=== PATIENT | female | born 1965 | race Caucasian/White ===

== ENCOUNTER 2018-07-21 10:40 | Day surgery (SDC) | payer MEDICARE, MEDICAID ==
[~2018-07-21 10:40] MED LIST: AMOX-580 PO; BUPR150T8 PO; CARB-90 PO; CARB1TAB23 PO; CLOZ100T18 PO; DIPH25CA83 PO; DIT5T PO; GABA-532 PO; LACT1CAP26 PO; LEVO112T5 PO; NICO-687 TD; NORCO10T PO; SERT50TA PO; ZOC40T PO
--- NOTE | 2018-07-21 13:08 | NUR ---
Patient ambulated independently from [facility] and was admitted to outpatient wound care for physician visit with Martin Duncan MD. Dressing removed, wound cleansed and lidocaine applied per order. Patient assessed for changes in conditions, medications and medical history. 1145 - Dr. Duncan at bedside accompanied by RN. Wound assessed, time out performed by MD/RN. Wound debrided as detailed in the physician progress/procedure note. Plan of care discussed with patient. Dressings placed per MD orders. Pt instructed that they should not be disconnected from suction for more than 2 hours at a time. If they are not able to get the suction back on they need to remove the dressing and take all of the foam out of the wound, place hydrogel gauze on/in the wound, and change the dressing daily until someone can replace the dressing. Pt instructed to call the Wound Center or their Home Health Agency immediately if they notice a change in the color or amount of the fluid in the canister, their wound looks more red than usual or has a foul smell, the skin around their wound looks reddened or irritated, the dressing feels or appears loose, they experience pain or the alarm will not turn off. Pt instructed to call 911 or go to the ED if their canister fills rapidly with blood. Patient instructed on the signs and symptoms of infection and to call the Wound Center if any occur or to go to the ED if we are closed: Increased pain in wound Increase in drainage from the wound Redness in the skin surrounding the wound Bleeding from the wound Temperature of 101 or greater Patient instructed that the weight of their body puts a large amount of pressure on their wounds. This pressure keeps the new tissue from growing and inhibits new blood vessels from forming. Explained that, if they continue to bear weight on a body part that has a wound, the time it takes to heal the wound increases, the wound may get worse or the wound may not heal at all. Patient verbalized understanding of all discharge instructions and plan of care and ambulated independently out to [facility] in stable condition with no sign or symptom of distress at time of discharge. Patient is scheduled to return to clinic Tuesday for dressing change. Nia gaines [facility] notified of orders and she states they have not yet opened patient to service due to limitations on staffing in that area.
== END 2018-07-21 12:57 | disposition home or self-care (01) ==
LOC: WOUND CARE 10:40
PROVIDERS: ATTEND Surgery
DX: T81.89XD Other complications of procedures, not elsewhere classified, subsequent encounter (principal); E03.9 Hypothyroidism, unspecified; E66.01 Morbid (severe) obesity due to excess calories; F17.210 Nicotine dependence, cigarettes, uncomplicated; F10.10 Alcohol abuse, uncomplicated; F25.0 Schizoaffective disorder, bipolar type; F41.9 Anxiety disorder, unspecified; Z79.899 Other long term (current) drug therapy; Z90.710 Acquired absence of both cervix and uterus; Y83.8 Other surgical procedures as the cause of abnormal reaction of the patient, or of later complication, without mention of misadventure at the time of the procedure
CPT/HCPCS: 97597; 97598; A4456

== ENCOUNTER 2018-07-24 11:57 | Emergency (ER) | payer MEDICARE, MEDICAID ==
[~2018-07-24] VITALS: Ht 165.1 cm; Wt 77.7 kg
[2018-07-24 12:00] VITALS: BP 123/70
--- NOTE | 2018-07-24 12:53 | NUR ---
AMBULATORY TO ER #[id number] WITH C/O DRAINING WOUND FROM HERNIA REAPIR, NOT BEING CONTAINED BY WOUND VAC. STATES SHE HAS HX WOUND INFECTIONS IN THE PAST. WOUND VAC NOTED AND FUNCTIONING WELL. STATES DRAINAGE IS COMING FROM THE LEFT SIDE OF THE WOUND.
--- NOTE | 2018-07-24 13:09 | NUR ---
WOUND AREA REINFORCED WITH TEGADERM DRESSING. VAC FUNCTIONING WELL WITHOUT SIGNS OF FLUID LEAKING AT PRESENT.
== END 2018-07-24 13:12 | disposition home or self-care (01) ==
LOC: ER 11:58
DX: T81.41XA Infection following a procedure, superficial incisional surgical site, initial encounter (principal); E03.9 Hypothyroidism, unspecified; G89.29 Other chronic pain; Z88.2 Allergy status to sulfonamides; Z79.899 Other long term (current) drug therapy; Y83.9 Surgical procedure, unspecified as the cause of abnormal reaction of the patient, or of later complication, without mention of misadventure at the time of the procedure; Y92.89 Other specified places as the place of occurrence of the external cause
CPT/HCPCS: 99282

== ENCOUNTER 2018-07-25 10:45 | Outpatient (CLI) | payer MEDICARE, MEDICAID ==
--- NOTE | 2018-07-25 13:28 | NUR ---
Patient ambulated independently from [facility] and was admitted to outpatient wound care for physician visit with Martin Duncan MD. Dressing removed, wound cleansed and lidocaine applied per order. Patient assessed for changes in conditions, medications and medical history. 1200 - Dr. Duncan at bedside accompanied by RN. Wound assessed by MD, new orders written. Plan of care discussed with patient. Dressings placed per MD orders. Pt instructed that they should not be disconnected from suction for more than 2 hours at a time. If they are not able to get the suction back on they need to remove the dressing and take all of the foam out of the wound, place hydrogel gauze on/in the wound, and change the dressing daily until someone can replace the dressing. Pt instructed to call the Wound Center or their Home Health Agency immediately if they notice a change in the color or amount of the fluid in the canister, their wound looks more red than usual or has a foul smell, the skin around their wound looks reddened or irritated, the dressing feels or appears loose, they experience pain or the alarm will not turn off. Pt instructed to call 911 or go to the ED if their canister fills rapidly with blood. Patient instructed on the signs and symptoms of infection and to call the Wound Center if any occur or to go to the ED if we are closed: Increased pain in wound Increase in drainage from the wound Redness in the skin surrounding the wound Bleeding from the wound Temperature of 101 or greater Patient instructed that the weight of their body puts a large amount of pressure on their wounds. This pressure keeps the new tissue from growing and inhibits new blood vessels from forming. Explained that, if they continue to bear weight on a body part that has a wound, the time it takes to heal the wound increases, the wound may get worse or the wound may not heal at all. Patient verbalized understanding of all discharge instructions and plan of care and ambulated independently out to [facility] in stable condition with no sign or symptom of distress at time of discharge.
== END 2018-07-25 13:22 | disposition home or self-care (01) ==
LOC: WOUND CARE 10:45 → EDSTATUS 11:00 → WOUND CARE 13:22
PROVIDERS: ATTEND Surgery
DX: T81.40XD Infection following a procedure, unspecified, subsequent encounter (principal); L98.492 Non-pressure chronic ulcer of skin of other sites with fat layer exposed; E03.9 Hypothyroidism, unspecified; E66.01 Morbid (severe) obesity due to excess calories; F17.210 Nicotine dependence, cigarettes, uncomplicated; F10.10 Alcohol abuse, uncomplicated; F25.0 Schizoaffective disorder, bipolar type; F41.9 Anxiety disorder, unspecified; Z79.899 Other long term (current) drug therapy; Z90.710 Acquired absence of both cervix and uterus; Y83.8 Other surgical procedures as the cause of abnormal reaction of the patient, or of later complication, without mention of misadventure at the time of the procedure
CPT/HCPCS: 97606; A6223; A4456

== ENCOUNTER 2018-07-28 10:03 | Outpatient (CLI) | payer MEDICARE, MEDICAID ==
--- NOTE | 2018-07-28 14:33 | NUR ---
Patient ambulated independently from [facility] and was admitted to outpatient wound care clinic for nursing visit, under direct supervision of . Dressings and wound vac removed, wound cleansed and patient assessed for changes in conditions, medications and medical history. Dressings and wound vac reapplied per physician orders. Patient instructed on the signs and symptoms of infection and to call the Wound Center if any occur or to go to the ED if we are closed: Increased pain in wound Increase in drainage from the wound Redness in the skin surrounding the wound Bleeding from the wound Temperature of 101 or greater Pt instructed that they should not be disconnected from suction for more than 2 hours at a time. If they are not able to get the suction back on they need to remove the dressing and take all of the foam out of the wound, place hydrogel gauze on/in the wound, and change the dressing daily until someone can replace the dressing. Pt instructed to call the Wound Center or their Home Health Agency immediately if they notice a change in the color or amount of the fluid in the canister, their wound looks more red than usual or has a foul smell, the skin around their wound looks reddened or irritated, the dressing feels or appears loose, they experience pain or the alarm will not turn off. Pt instructed to call 911 or go to the ED if their canister fills rapidly with blood. Patient instructed that the weight of their body puts a large amount of pressure on their wounds. This pressure keeps the new tissue from growing and inhibits new blood vessels from forming. Explained that, if they continue to bear weight on a body part that has a wound, the time it takes to heal the wound increases, the wound may get worse or the wound may not heal at all. Patient verbalized understanding of all discharge instructions and plan of care. Patient ambulated independently out to [facility] in stable condition with no sign or symptom of distress at time of discharge. Addendum: 07/28/18 at 1442 by Gisella Gersbach RN Amended: Links added.
== END 2018-07-28 12:24 | disposition home or self-care (01) ==
LOC: WOUND CARE 10:03
PROVIDERS: ATTEND Surgery
DX: T81.40XD Infection following a procedure, unspecified, subsequent encounter (principal); L98.492 Non-pressure chronic ulcer of skin of other sites with fat layer exposed; E03.9 Hypothyroidism, unspecified; E66.01 Morbid (severe) obesity due to excess calories; F17.210 Nicotine dependence, cigarettes, uncomplicated; F10.10 Alcohol abuse, uncomplicated; F25.0 Schizoaffective disorder, bipolar type; F41.9 Anxiety disorder, unspecified; Z79.899 Other long term (current) drug therapy; Z90.710 Acquired absence of both cervix and uterus; Y83.8 Other surgical procedures as the cause of abnormal reaction of the patient, or of later complication, without mention of misadventure at the time of the procedure
CPT/HCPCS: 97606

== ENCOUNTER 2018-08-01 10:30 | Day surgery (SDC) | payer MEDICARE, MEDICAID ==
--- NOTE | 2018-08-01 13:30 | NUR ---
Patient ambulated independently from [facility] and was admitted to outpatient wound care for physician visit with Martin Duncan MD. Dressing removed, wound cleansed and lidocaine applied per order. Patient assessed for changes in conditions, medications and medical history. 1235 - Dr. Duncan at bedside accompanied by RN. Wound assessed, time out performed by MD/RN. Wound debrided as detailed in the physician progress/procedure note. Plan of care discussed with patient. Dressings placed per MD orders. Pt instructed that they should not be disconnected from suction for more than 2 hours at a time. If they are not able to get the suction back on they need to remove the dressing and take all of the foam out of the wound, place hydrogel gauze on/in the wound, and change the dressing daily until someone can replace the dressing. Pt instructed to call the Wound Center or their Home Health Agency immediately if they notice a change in the color or amount of the fluid in the canister, their wound looks more red than usual or has a foul smell, the skin around their wound looks reddened or irritated, the dressing feels or appears loose, they experience pain or the alarm will not turn off. Pt instructed to call 911 or go to the ED if their canister fills rapidly with blood. Patient instructed on the signs and symptoms of infection and to call the Wound Center if any occur or to go to the ED if we are closed: Increased pain in wound Increase in drainage from the wound Redness in the skin surrounding the wound Bleeding from the wound Temperature of 101 or greater Patient instructed that the weight of their body puts a large amount of pressure on their wounds. This pressure keeps the new tissue from growing and inhibits new blood vessels from forming. Explained that, if they continue to bear weight on a body part that has a wound, the time it takes to heal the wound increases, the wound may get worse or the wound may not heal at all. Patient verbalized understanding of all discharge instructions and plan of care and ambulated independently out to [facility] in stable condition with no sign or symptom of distress at time of discharge.
== END 2018-08-01 13:30 | disposition home or self-care (01) ==
LOC: WOUND CARE 10:30
PROVIDERS: ATTEND Surgery
DX: T81.89XD Other complications of procedures, not elsewhere classified, subsequent encounter (principal); L98.492 Non-pressure chronic ulcer of skin of other sites with fat layer exposed; E03.9 Hypothyroidism, unspecified; E66.01 Morbid (severe) obesity due to excess calories; F17.210 Nicotine dependence, cigarettes, uncomplicated; F10.10 Alcohol abuse, uncomplicated; F25.0 Schizoaffective disorder, bipolar type; F41.9 Anxiety disorder, unspecified; Z79.899 Other long term (current) drug therapy; Z90.710 Acquired absence of both cervix and uterus; Y83.8 Other surgical procedures as the cause of abnormal reaction of the patient, or of later complication, without mention of misadventure at the time of the procedure
CPT/HCPCS: 97597; A4456

== ENCOUNTER 2018-08-08 10:00 | Day surgery (SDC) | payer MEDICARE, MEDICAID ==
--- NOTE | 2018-08-08 12:00 | NUR ---
Patient ambulated independently from [facility] and was admitted to outpatient wound care for physician visit with Martin Duncan MD. Dressing removed, wound cleansed. Patient assessed for changes in conditions, medications and medical history. 1045 - Dr. Duncan at bedside accompanied by RN. Wound assessed, time out performed by MD/RN. Wound debrided as detailed in the physician progress/procedure note. Plan of care discussed with patient. Dressings placed per MD orders. Pt instructed that they should not be disconnected from suction for more than 2 hours at a time. If they are not able to get the suction back on they need to remove the dressing and take all of the foam out of the wound, place hydrogel gauze on/in the wound, and change the dressing daily until someone can replace the dressing. Pt instructed to call the Wound Center or their Home Health Agency immediately if they notice a change in the color or amount of the fluid in the canister, their wound looks more red than usual or has a foul smell, the skin around their wound looks reddened or irritated, the dressing feels or appears loose, they experience pain or the alarm will not turn off. Pt instructed to call 911 or go to the ED if their canister fills rapidly with blood. Patient instructed on the signs and symptoms of infection and to call the Wound Center if any occur or to go to the ED if we are closed: Increased pain in wound Increase in drainage from the wound Redness in the skin surrounding the wound Bleeding from the wound Temperature of 101 or greater Patient instructed that the weight of their body puts a large amount of pressure on their wounds. This pressure keeps the new tissue from growing and inhibits new blood vessels from forming. Explained that, if they continue to bear weight on a body part that has a wound, the time it takes to heal the wound increases, the wound may get worse or the wound may not heal at all. Patient verbalized understanding of all discharge instructions and plan of care and ambulated independently out to [facility] in stable condition with no sign or symptom of distress at time of discharge.
== END 2018-08-08 12:00 | disposition home or self-care (01) ==
LOC: WOUND CARE 10:00
PROVIDERS: ATTEND Surgery
DX: T81.89XD Other complications of procedures, not elsewhere classified, subsequent encounter (principal); L98.492 Non-pressure chronic ulcer of skin of other sites with fat layer exposed; E03.9 Hypothyroidism, unspecified; E66.01 Morbid (severe) obesity due to excess calories; F17.210 Nicotine dependence, cigarettes, uncomplicated; F10.10 Alcohol abuse, uncomplicated; F25.0 Schizoaffective disorder, bipolar type; F41.9 Anxiety disorder, unspecified; Z79.899 Other long term (current) drug therapy; Z90.710 Acquired absence of both cervix and uterus; Y83.8 Other surgical procedures as the cause of abnormal reaction of the patient, or of later complication, without mention of misadventure at the time of the procedure
CPT/HCPCS: 97597; 97598; A6223; A4456

== ENCOUNTER 2018-08-31 10:56 | Outpatient (CLI) | payer MEDICARE, MEDICAID ==
[~2018-08-31 10:56] MED LIST changes: -AMOX-580 PO
--- NOTE | 2018-08-31 12:30 | NUR ---
Patient ambulated independently from [facility] and was admitted to outpatient wound care for nursing visit under the direct supervision of Martin Duncan MD. Dressing removed, wound cleansed. Patient assessed for changes in conditions, medications and medical history. Dressings placed per MD orders. Pt instructed that they should not be disconnected from suction for more than 2 hours at a time. If they are not able to get the suction back on they need to remove the dressing and take all of the foam out of the wound, place hydrogel gauze on/in the wound, and change the dressing daily until someone can replace the dressing. Pt instructed to call the Wound Center or their Home Health Agency immediately if they notice a change in the color or amount of the fluid in the canister, their wound looks more red than usual or has a foul smell, the skin around their wound looks reddened or irritated, the dressing feels or appears loose, they experience pain or the alarm will not turn off. Pt instructed to call 911 or go to the ED if their canister fills rapidly with blood. Patient instructed on the signs and symptoms of infection and to call the Wound Center if any occur or to go to the ED if we are closed: Increased pain in wound Increase in drainage from the wound Redness in the skin surrounding the wound Bleeding from the wound Temperature of 101 or greater Patient instructed that the weight of their body puts a large amount of pressure on their wounds. This pressure keeps the new tissue from growing and inhibits new blood vessels from forming. Explained that, if they continue to bear weight on a body part that has a wound, the time it takes to heal the wound increases, the wound may get worse or the wound may not heal at all. Patient verbalized understanding of all discharge instructions and plan of care and ambulated independently out to [facility] in stable condition with no sign or symptom of distress at time of discharge.
== END 2018-08-31 12:03 | disposition home or self-care (01) ==
LOC: WOUND CARE 10:56 → EDSTATUS 11:00 → WOUND CARE 12:03
PROVIDERS: ATTEND Surgery
DX: T81.89XD Other complications of procedures, not elsewhere classified, subsequent encounter (principal); L98.492 Non-pressure chronic ulcer of skin of other sites with fat layer exposed; E03.9 Hypothyroidism, unspecified; E66.01 Morbid (severe) obesity due to excess calories; F17.210 Nicotine dependence, cigarettes, uncomplicated; F10.10 Alcohol abuse, uncomplicated; F25.0 Schizoaffective disorder, bipolar type; F41.9 Anxiety disorder, unspecified; Z79.899 Other long term (current) drug therapy; Z90.710 Acquired absence of both cervix and uterus; Y83.8 Other surgical procedures as the cause of abnormal reaction of the patient, or of later complication, without mention of misadventure at the time of the procedure
CPT/HCPCS: 97605; A4456; A4663; A6021; A6154; A6213

== ENCOUNTER 2018-09-04 10:20 | Outpatient (CLI) | payer MEDICARE, MEDICAID ==
--- NOTE | 2018-09-04 12:22 | NUR ---
Patient ambulated independently from [facility] and was admitted to outpatient wound care for physician visit with Martin Duncan MD. Dressings and wound vac removed, wound cleansed and lidocaine applied per order. Patient assessed for changes in conditions, medications and medical history. Dr. Duncan at bedside accompanied by RN. Wound assessed and no debridement was done. Plan of care discussed with patient. Dressings and wound vac placed per MD orders. Patient instructed on the signs and symptoms of infection and to call the Wound Center if any occur or to go to the ED if we are closed: Increased pain in wound Increase in drainage from the wound Redness in the skin surrounding the wound Bleeding from the wound Temperature of 101 or greater Pt instructed that they should not be disconnected from suction for more than 2 hours at a time. If they are not able to get the suction back on they need to remove the dressing and take all of the foam out of the wound, place hydrogel gauze on/in the wound, and change the dressing daily until someone can replace the dressing. Pt instructed to call the Wound Center or their Home Health Agency immediately if they notice a change in the color or amount of the fluid in the canister, their wound looks more red than usual or has a foul smell, the skin around their wound looks reddened or irritated, the dressing feels or appears loose, they experience pain or the alarm will not turn off. Pt instructed to call 911 or go to the ED if their canister fills rapidly with blood. Patient instructed that the weight of their body puts a large amount of pressure on their wounds. This pressure keeps the new tissue from growing and inhibits new blood vessels from forming. Explained that, if they continue to bear weight on a body part that has a wound, the time it takes to heal the wound increases, the wound may get worse or the wound may not heal at all. Patient verbalized understanding of all discharge instructions and plan of care and ambulated independently out to [facility] in stable condition with no sign or symptom of distress at time of discharge. Addendum: 09/04/18 at 1230 by Gisella Foster RN Amended: Links added.
== END 2018-09-04 11:56 | disposition home or self-care (01) ==
LOC: WOUND CARE 10:20 → EDSTATUS 10:30 → WOUND CARE 11:56
PROVIDERS: ATTEND Surgery
DX: T81.89XD Other complications of procedures, not elsewhere classified, subsequent encounter (principal); L98.492 Non-pressure chronic ulcer of skin of other sites with fat layer exposed; E03.9 Hypothyroidism, unspecified; E66.01 Morbid (severe) obesity due to excess calories; G89.29 Other chronic pain; J42 Unspecified chronic bronchitis; E78.5 Hyperlipidemia, unspecified; F17.210 Nicotine dependence, cigarettes, uncomplicated; F10.10 Alcohol abuse, uncomplicated; F25.0 Schizoaffective disorder, bipolar type; F41.9 Anxiety disorder, unspecified; Z79.899 Other long term (current) drug therapy; Z90.710 Acquired absence of both cervix and uterus; Y83.8 Other surgical procedures as the cause of abnormal reaction of the patient, or of later complication, without mention of misadventure at the time of the procedure
CPT/HCPCS: 97605; A4456; A4663; A6021; A6154; A6212

== ENCOUNTER 2018-09-07 10:15 | Day surgery (SDC) | payer MEDICARE, MEDICAID ==
--- NOTE | 2018-09-07 17:26 | NUR ---
1000 Patient ambulated safely into [facility]. Patient admitted to outpatient wound care clinic for follow-up visit with physician. Dressing removed, wound cleansed. Patient assessed for changes in conditions, medications and medical history. Patient showed no s/s of distress at time of assessment. 8515 at bedside accompanied by RN. Wounds assessed, time out performed and debridement done today as detailed in the physician progress/procedure note. Plan of care discussed with patient. Dressings placed per MD orders. WOUND VAC WAS D/C'D Patient instructed on the signs and symptoms of infection and to call the Wound Center if any occur or to go to the ED if we are closed: Increased pain in wound Increase in drainage from the wound Redness in the skin surrounding the wound Bleeding from the wound Temperature of 101 or greater Patient instructed that the weight of their body puts a large amount of pressure on their wounds. This pressure keeps the new tissue from growing and inhibits new blood vessels from forming. Explained that, if they continue to bear weight on a body part that has a wound, the time it takes to heal the wound increases, the wound may get worse or the wound may not heal at all. Patient verbalized understanding of all discharge instructions and plan of care. Patient ambulated independently out to [facility] and is in stable condition with no sign or symptom of distress at time of discharge.
== END 2018-09-07 12:59 | disposition home or self-care (01) ==
LOC: WOUND CARE 10:15
PROVIDERS: ATTEND Surgery
DX: T81.89XD Other complications of procedures, not elsewhere classified, subsequent encounter (principal); L98.492 Non-pressure chronic ulcer of skin of other sites with fat layer exposed; E03.9 Hypothyroidism, unspecified; E66.01 Morbid (severe) obesity due to excess calories; F17.210 Nicotine dependence, cigarettes, uncomplicated; F10.10 Alcohol abuse, uncomplicated; F25.0 Schizoaffective disorder, bipolar type; F41.9 Anxiety disorder, unspecified; Z79.899 Other long term (current) drug therapy; Z90.710 Acquired absence of both cervix and uterus; Y83.8 Other surgical procedures as the cause of abnormal reaction of the patient, or of later complication, without mention of misadventure at the time of the procedure
CPT/HCPCS: 97597; A4663; A6021; A6212; A6213

== ENCOUNTER 2018-09-10 16:02 | Emergency (ER) | payer MEDICARE, MEDICAID ==
[~2018-09-10] VITALS: Ht 165.1 cm; Wt 74.0 kg
--- NOTE | 2018-09-10 16:57 | NUR ---
STATES INTESTINAL INFECTION AT THE END OF JUNE AND ABDOMEN WAS "CLEANED OUT" HAD WOUND VAC REMOVED A WEEK AGO, X 1 MONTH SINCE ON ATB THREAPY AND HAS HAD FEVER UP TO 101.1 YESTERDAY
[2018-09-10 18:05] LABS: BASOPHILS % (AUTO) 0.3 % (0-1); EOSINOPHILS # (AUTO) 0.3 X10'3 (0-0.9); EOSINOPHILS % (AUTO) 2.8 % (0-6); HEMATOCRIT 36.4 % (35.0-45.0); HEMOGLOBIN 12.5 g/dl (12.0-16.0); LYMPHOCYTES # (AUTO) 1.7 X10'3 (1.1-4.8); MEAN CORPUSCULAR HEMOGLOBIN 30.4 PG (27.0-31.0); MEAN CORPUSCULAR HGB CONC 34.3 g/dL (33.0-36.5); MEAN CORPUSCULAR VOLUME 88.6 FL (78-98); MEAN PLATELET VOLUME 8.6 FL (7.4-10.4); MONOCYTES # (AUTO) 0.7 X10'3 (0-0.9); MONOCYTES % (AUTO) 6.5 % (2-12); NEUTROPHILS # (AUTO) 7.8 X10'3 (1.8-7.7); NEUTROPHILS % (AUTO) 74.4 % (42-75); PLATELET COUNT 176 X10'3 (140-440); RED BLOOD COUNT 4.11 X10'6 (4.20-5.60); RED CELL DISTRIBUTION WIDTH 14.6 % (11.5-14.5); WHITE BLOOD COUNT 10.5 X10'3 (4.5-11.0)
[2018-09-10 18:19] LABS: ALANINE AMINOTRANSFERASE 49 U/L (12-78); ALBUMIN 3.1 G/DL (3.4-5.0); ALBUMIN/GLOBULIN RATIO 0.9 (1.1-1.5); ALKALINE PHOSPHATASE 75 IU/L (46-116); ANION GAP 7 (8-16); ASPARTATE AMINO TRANSFERASE 23 U/L (10-37); BILIRUBIN,TOTAL 0.4 MG/DL (0.1-1.0); BLOOD UREA NITROGEN 18 MG/DL (7-18); BUN/CREATININE RATIO 20.2 (6.6-38.0); CALCIUM 8.7 MG/DL (8.5-10.1); CHLORIDE 104 MMOL/L (99-107); CREATININE 0.89 MG/DL (0.40-0.90); GLUCOSE 94 MG/DL (70-104); POTASSIUM 3.7 MMOL/L (3.5-5.1); SODIUM 139 MMOL/L (135-145); TOTAL CARBON DIOXIDE 28.4 MMOL/L (24-32); TOTAL PROTEIN 6.7 G/DL (6.4-8.2); eGFR 66 ML/MIN
[2018-09-10 19:08] VITALS: BP 104/68
== END 2018-09-10 19:56 | disposition home or self-care (01) ==
LOC: ER 16:03
DX: K91.89 Other postprocedural complications and disorders of digestive system (principal); R10.9 Unspecified abdominal pain
CPT/HCPCS: 36415; 80053; 84145; 85025; 99283

== ENCOUNTER 2018-09-14 10:39 | Day surgery (SDC) | payer MEDICARE, MEDICAID ==
--- NOTE | 2018-09-14 16:22 | NUR ---
Patient arrived safely into [facility] via ambulation. Patient admitted to outpatient wound care clinic for visit with Martin Duncan MD. Dressing removed, wound cleansed and lidocaine applied per order. Patient assessed and medications and medical history reviewed. Dr. Duncan at bedside accompanied by RN. Wound assessed. No treatment performed by Dr. Duncan. Plan of care discussed with patient. Dressings placed per MD orders. Patient instructed on the signs and symptoms of infection and to call the Wound Center if any occur or to go to the ED if we are closed: Increased pain in wound Increase in drainage from the wound Redness in the skin surrounding the wound Bleeding from the wound Temperature of 101 or greater Patient instructed that the weight of their body puts a large amount of pressure on their wounds. This pressure keeps the new tissue from growing and inhibits new blood vessels from forming. Explained that, if they continue to bear weight on a body part that has a wound, the time it takes to heal the wound increases, the wound may get worse or the wound may not heal at all. Patient verbalized understanding of all discharge instructions and plan of care. Patient left in stable condition with no sign or symptom of distress at time of discharge. Addendum: 09/14/18 at 1627 by Suresh Swan RN Amended: Links added.
[2018-09-15] MEDS ORDERED: FURO20TA4 PO (16:23)
[2018-09-15] MEDS ORDERED: OXYC-150 PO (16:23)
[2018-09-15] MEDS ORDERED: AMPH30CA3 PO (16:23)
[2018-09-15] MEDS ORDERED: CIPR-230 PO (16:23)
[2018-09-15] MEDS ORDERED: BACL10TA PO (16:23)
== END 2018-09-14 12:25 | disposition home or self-care (01) ==
LOC: WOUND CARE 10:39
PROVIDERS: ATTEND Surgery
DX: T81.89XD Other complications of procedures, not elsewhere classified, subsequent encounter (principal); L98.492 Non-pressure chronic ulcer of skin of other sites with fat layer exposed; E03.9 Hypothyroidism, unspecified; E66.01 Morbid (severe) obesity due to excess calories; G89.29 Other chronic pain; F17.210 Nicotine dependence, cigarettes, uncomplicated; F10.10 Alcohol abuse, uncomplicated; F25.0 Schizoaffective disorder, bipolar type; F41.9 Anxiety disorder, unspecified; Z79.899 Other long term (current) drug therapy; Z90.710 Acquired absence of both cervix and uterus; Y83.8 Other surgical procedures as the cause of abnormal reaction of the patient, or of later complication, without mention of misadventure at the time of the procedure
CPT/HCPCS: A4663; A6021; A6212; G0463

== ENCOUNTER 2018-09-15 10:24 | Inpatient (IN) | payer MEDICARE, MEDICAID ==
[2018-09-15] VITALS (13 sets, daily range): BP systolic 91–111; BP diastolic 41–81
[~2018-09-15] VITALS: Ht 165.1 cm; Wt 74.2 kg
[2018-09-15 11:37] LABS: BASOPHILS # (AUTO) 0.1 X10'3 (0-0.2); BASOPHILS % (AUTO) 0.5 % (0-1); EOSINOPHILS # (AUTO) 0.3 X10'3 (0-0.9); EOSINOPHILS % (AUTO) 2.8 % (0-6); HEMATOCRIT 35.6 % (35.0-45.0); HEMOGLOBIN 12.2 g/dl (12.0-16.0); LYMPHOCYTES # (AUTO) 1.5 X10'3 (1.1-4.8); LYMPHOCYTES % (AUTO) 14.1 % (21-51); MEAN CORPUSCULAR HEMOGLOBIN 30.1 PG (27.0-31.0); MEAN CORPUSCULAR HGB CONC 34.2 g/dL (33.0-36.5); MEAN PLATELET VOLUME 7.7 FL (7.4-10.4); MONOCYTES # (AUTO) 0.7 X10'3 (0-0.9); MONOCYTES % (AUTO) 6.9 % (2-12); NEUTROPHILS # (AUTO) 7.9 X10'3 (1.8-7.7); NEUTROPHILS % (AUTO) 75.7 % (42-75); PLATELET COUNT 323 X10'3 (140-440); RED BLOOD COUNT 4.05 X10'6 (4.20-5.60); RED CELL DISTRIBUTION WIDTH 14.4 % (11.5-14.5); WHITE BLOOD COUNT 10.4 X10'3 (4.5-11.0)
[2018-09-15 11:52] LABS: ALANINE AMINOTRANSFERASE 41 U/L (12-78); ALBUMIN 2.7 G/DL (3.4-5.0); ALBUMIN/GLOBULIN RATIO 0.6 (1.1-1.5); ALKALINE PHOSPHATASE 89 IU/L (46-116); ANION GAP 13 (8-16); ASPARTATE AMINO TRANSFERASE 16 U/L (10-37); BILIRUBIN,TOTAL 0.3 MG/DL (0.1-1.0); BLOOD UREA NITROGEN 16 MG/DL (7-18); CALCIUM 8.7 MG/DL (8.5-10.1); CHLORIDE 104 MMOL/L (99-107); CREATININE 0.89 MG/DL (0.40-0.90); GLUCOSE 108 MG/DL (70-104); POTASSIUM 3.7 MMOL/L (3.5-5.1); SODIUM 142 MMOL/L (135-145); TOTAL PROTEIN 7.1 G/DL (6.4-8.2); eGFR 66 ML/MIN
--- NOTE | 2018-09-15 12:44 | NUR ---
ABDOMINAL WOUND SWABBED AND SENT TO LAB
[2018-09-15] MEDS ORDERED: vancomycin/NS 1 GM ADD-VANTAGE 250 ML IV ONE (15:45)
[2018-09-15] MEDS ORDERED: metroNIDAZOLE-Flagyl 500mg/NS 100 ML IV ONE (15:45)
[2018-09-15] MEDS ORDERED: potassium Cl 20 mEq SR tablet PO PRN ×2 (16:10)
[2018-09-15] MEDS ORDERED: mag hydrox/Alum hydrox/simeth 30ml oral suspension PO PRN (16:10)
[2018-09-15] MEDS ORDERED: magnesium 2GM in 50ml NS 50 ML IV PRN (16:10)
[2018-09-15] MEDS ORDERED: acetaminophen 325mg tablet PO PRN ×2 (16:10)
[2018-09-15] MEDS ORDERED: HYDROcodone/acetaminophen 5mg/325mg tablet PO PRN (16:10)
[2018-09-15] MEDS ORDERED: ondansetron/PF 4mg/2ml inj IV PRN ×2 (16:10→18:25)
[2018-09-15] MEDS ORDERED: magnesium 4gm in 100ml NS 100 ML IV PRN (16:10)
[2018-09-15] MEDS ORDERED: magnesium hydroxide 30ml (MOM) UD suspension PO PRN (16:10)
[2018-09-15] MEDS ORDERED: potassium CL 10mEq/100ml bag 100 ML IV PRN ×2 (16:10)
[2018-09-15] MEDS ORDERED: magnesium Cl slow-release 64mg tablet PO PRN (16:10)
[2018-09-15] MEDS ORDERED: OXYC-150 PO (16:23)
[2018-09-15] MEDS ORDERED: CIPR-230 PO (16:23)
[2018-09-15] MEDS ORDERED: FURO20TA4 PO (16:23)
[2018-09-15] MEDS ORDERED: BACL10TA PO (16:23)
[2018-09-15] MEDS ORDERED: AMPH30CA3 PO (16:23)
--- NOTE | 2018-09-15 16:44 | NUR ---
i was not notified until about 10 minutes ago that this patient was being taken straight to the OR. Charge nurse put a line in her and then one of the OR staff came to retrieve her. I spoke with a nurse upstairs who said that she would medicate her for her pain and hang the newly prescibed abtx that I sent upstairs with her. (abtx, not pain rx). Awaiting a phone call back so I can give report
[2018-09-15] MEDS ORDERED: LIDOcaine 1% (10mg/ml) 2ml vial ONE (17:06)
[2018-09-15] MEDS ORDERED: sevoflurane 250ml liquid IH ONE (17:44)
[2018-09-15] MEDS ORDERED: fentaNYL/PF 50MCG/1 ML 2ML syringe ONE (17:47)
[2018-09-15] MEDS ORDERED: midazolam 2 mg/2 ml injection ONE (17:48)
[2018-09-15] MEDS ORDERED: propofol inj 20 ML IV ONE (18:15)
--- NOTE | 2018-09-15 18:17 | NUR ---
Received from OR via SURGICAL BED , accompanied by Anesthesiologist SHELBI and report given by Anesthesiolgist. PATIENT WITH 20G PIV IN LEFT UE RUNNING LR AT 100. 9-10 PAIN. MEDICATED UPON ARRIVAL. LARGE ABDOMINAL DRESSING THAT IS CDI CURRENTLY. NO DRAINS PRESENT NOR DRAINAGE. PATIENT. VSS. WILL CONTINUE TO ASSESS AND TREAT. Addendum: 09/15/18 at 1835 by Selwyn Carlson RN, RN Amended: Links added.
[2018-09-15] MEDS ORDERED: ringers solution, lacted 1,000 ML IV SCH (18:22)
[2018-09-15] MEDS ORDERED: morphine 4 MG/ML inj SYRINge ONE (18:22)
[2018-09-15] MEDS ORDERED: morphine 4 MG/ML inj SYRINge IV PRN ×2 (18:25)
[2018-09-15] MEDS ORDERED: proCHLORperazine 10 MG/2 ml inj IV PRN (18:25)
[2018-09-15] MEDS ORDERED: meperidine/PF 25mg/ml syringe IV PRN ×3 (18:25)
--- NOTE | 2018-09-15 19:07 | NUR ---
ALL CRITERIA FOR TRANSFER TO THE FLOOR HAS BEEN ACHIEVED. VSS. BED LOW, CALL LIGHT AND VS. SET IN PLACE. RN PRESENT TO ACCEPT CARE. PATIENT RESTING COMFORTABLY IN BED. BELONGINGS SENT WITH PATIENT. DRESSINGS CDI.RN PRESENT TO ACCEPT CARE. Addendum: 09/15/18 at 1917 by Selwyn Carlson RN RN Amended: Links added.
--- NOTE | 2018-09-15 19:45 | NUR ---
Report called from Selwyn recovery nurse RN. Patient arrived via gurney with Selwyn present at 1920. She was no any apparent distress. Post op VSS started.Will continue to monitor.
[2018-09-15] MEDS ORDERED: temazepam 15mg capsule PO PRN (21:00)
[2018-09-15] MEDS: HYDROmorphone 1 mg/ml syringe IV PRN (21:23)
[2018-09-16] VITALS (8 sets, daily range): BP systolic 81–106; BP diastolic 40–58
[2018-09-16] MEDS: metroNIDAZOLE-Flagyl 500mg/NS 100 ML IV SCH ×3 (00:09→14:52)
[2018-09-16] MEDS: normal saline 1000ml 1,000 ML IV SCH ×4 (02:03→22:06)
[2018-09-16] MEDS: HYDROcodone/acetaminophen 10/325mg tab PO PRN ×3 (03:59→19:34)
[2018-09-16] MEDS: vancomycin/NS 1 GM ADD-VANTAGE 250 ML IV SCH ×2 (04:00→16:42)
[2018-09-16 06:17] LABS: BASOPHILS # (AUTO) 0.1 X10'3 (0-0.2); BASOPHILS % (AUTO) 0.6 % (0-1); EOSINOPHILS # (AUTO) 0.4 X10'3 (0-0.9); EOSINOPHILS % (AUTO) 4.2 % (0-6); HEMATOCRIT 31.2 % (35.0-45.0); HEMOGLOBIN 10.6 g/dl (12.0-16.0); LYMPHOCYTES # (AUTO) 1.4 X10'3 (1.1-4.8); LYMPHOCYTES % (AUTO) 15.6 % (21-51); MEAN CORPUSCULAR HEMOGLOBIN 30.2 PG (27.0-31.0); MEAN CORPUSCULAR HGB CONC 33.9 g/dL (33.0-36.5); MEAN PLATELET VOLUME 7.6 FL (7.4-10.4); MONOCYTES # (AUTO) 0.8 X10'3 (0-0.9); MONOCYTES % (AUTO) 8.6 % (2-12); NEUTROPHILS # (AUTO) 6.3 X10'3 (1.8-7.7); PLATELET COUNT 265 X10'3 (140-440); RED BLOOD COUNT 3.51 X10'6 (4.20-5.60); RED CELL DISTRIBUTION WIDTH 14.2 % (11.5-14.5); WHITE BLOOD COUNT 8.8 X10'3 (4.5-11.0)
--- NOTE | 2018-09-16 06:20 | NUR ---
Problems reprioritized. Patient report given, questions answered & plan of care reviewed with BRENNA Calderon.
[2018-09-16 06:42] LABS: ALBUMIN 2.2 G/DL (3.4-5.0); ALBUMIN/GLOBULIN RATIO 0.6 (1.1-1.5); ANION GAP 8 (8-16); ASPARTATE AMINO TRANSFERASE 10 U/L (10-37); BILIRUBIN,TOTAL 0.3 MG/DL (0.1-1.0); BLOOD UREA NITROGEN 12 MG/DL (7-18); BUN/CREATININE RATIO 16.4 (6.6-38.0); CALCIUM 8.2 MG/DL (8.5-10.1); CHLORIDE 109 MMOL/L (99-107); CREATININE 0.73 MG/DL (0.40-0.90); GLUCOSE 82 MG/DL (70-104); PHOSPHORUS 3.6 MG/DL (2.3-4.5); POTASSIUM 4.1 MMOL/L (3.5-5.1); SODIUM 143 MMOL/L (135-145); TOTAL CARBON DIOXIDE 26.2 MMOL/L (24-32); TOTAL PROTEIN 5.8 G/DL (6.4-8.2); eGFR 83 ML/MIN
[2018-09-16 06:43] LABS: ALANINE AMINOTRANSFERASE 29 U/L (12-78); ALKALINE PHOSPHATASE 67 IU/L (46-116)
[2018-09-16] MEDS: K and/or MAG REPLACEMENT MC SCH (08:00)
--- NOTE | 2018-09-16 09:15 | NUR ---
Patient in room [facility]. I have received report from ODILON CEJA and had the opportunity to ask questions and assume patient care.
[2018-09-16] MEDS: HYDROmorphone inj. 0.5 MG/0.5 ML DISP.SYRIN IV PRN ×2 (10:36→16:51)
--- NOTE | 2018-09-16 18:36 | NUR ---
GAVE REPORT TO JULIA CEJA
[2018-09-16] MEDS: lactobacillus rhamnosus 10,000 MMU CELLS/CAPSULE PO SCH (19:33)
[2018-09-16] MEDS: HYDROmorphone 1 mg/ml syringe IV PRN (22:49)
[2018-09-17] VITALS: BP 104/53
[2018-09-17] MEDS: metroNIDAZOLE-Flagyl 500mg/NS 100 ML IV SCH ×4 (00:31→23:56)
[2018-09-17] MEDS: HYDROcodone/acetaminophen 10/325mg tab PO PRN ×4 (02:56→19:56)
[2018-09-17] MEDS ORDERED: VANCOMYCIN LEVEL IV ONE (03:30)
[2018-09-17] MEDS: normal saline 1000ml 1,000 ML IV SCH ×2 (04:00→17:30)
[2018-09-17] MEDS: vancomycin/NS 1 GM ADD-VANTAGE 250 ML IV SCH (04:45)
[2018-09-17] MEDS: HYDROmorphone 1 mg/ml syringe IV PRN ×3 (05:41→17:29)
[2018-09-17 05:50] LABS: BASOPHILS # (AUTO) 0.1 X10'3 (0-0.2); BASOPHILS % (AUTO) 0.8 % (0-1); EOSINOPHILS # (AUTO) 0.4 X10'3 (0-0.9); EOSINOPHILS % (AUTO) 4.5 % (0-6); HEMATOCRIT 32.6 % (35.0-45.0); HEMOGLOBIN 10.8 g/dl (12.0-16.0); LYMPHOCYTES # (AUTO) 1.6 X10'3 (1.1-4.8); MEAN CORPUSCULAR HEMOGLOBIN 29.4 PG (27.0-31.0); MEAN CORPUSCULAR HGB CONC 33.1 g/dL (33.0-36.5); MEAN CORPUSCULAR VOLUME 88.9 FL (78-98); MEAN PLATELET VOLUME 7.8 FL (7.4-10.4); MONOCYTES # (AUTO) 0.7 X10'3 (0-0.9); NEUTROPHILS # (AUTO) 6.3 X10'3 (1.8-7.7); NEUTROPHILS % (AUTO) 68.7 % (42-75); PLATELET COUNT 295 X10'3 (140-440); RED BLOOD COUNT 3.67 X10'6 (4.20-5.60); RED CELL DISTRIBUTION WIDTH 14.4 % (11.5-14.5); WHITE BLOOD COUNT 9.1 X10'3 (4.5-11.0)
[2018-09-17 06:02] LABS: ALANINE AMINOTRANSFERASE 25 U/L (12-78); ALBUMIN 2.2 G/DL (3.4-5.0); ALBUMIN/GLOBULIN RATIO 0.6 (1.1-1.5); ALKALINE PHOSPHATASE 69 IU/L (46-116); ANION GAP 9 (8-16); ASPARTATE AMINO TRANSFERASE 10 U/L (10-37); BILIRUBIN,TOTAL 0.2 MG/DL (0.1-1.0); BLOOD UREA NITROGEN 11 MG/DL (7-18); BUN/CREATININE RATIO 17.7 (6.6-38.0); CALCIUM 8.2 MG/DL (8.5-10.1); CHLORIDE 106 MMOL/L (99-107); CREATININE 0.62 MG/DL (0.40-0.90); GLUCOSE 90 MG/DL (70-104); MAGNESIUM 1.8 MG/DL (1.5-2.4); PHOSPHORUS 3.2 MG/DL (2.3-4.5); SODIUM 139 MMOL/L (135-145); TOTAL CARBON DIOXIDE 24.3 MMOL/L (24-32); TOTAL PROTEIN 5.7 G/DL (6.4-8.2); eGFR > 90 ML/MIN
--- NOTE | 2018-09-17 06:37 | NUR ---
Problems reprioritized. Patient report given, questions answered & plan of care reviewed with Tamika CEJA. Addendum: 09/17/18 at 0638 by Yessi Ware RN Amended: Links added.
[2018-09-17 07:00] VITALS: BP 101/57
[2018-09-17] MEDS: K and/or MAG REPLACEMENT MC SCH (08:00)
[2018-09-17] MEDS: lactobacillus rhamnosus 10,000 MMU CELLS/CAPSULE PO SCH ×2 (08:36→19:56)
[2018-09-17] MEDS ORDERED: buPROPion SR 150mg tablet PO SCH (10:15)
[2018-09-17] MEDS: oxybutynin 5mg tablet PO SCH ×2 (10:44→19:56)
[2018-09-17] MEDS: dextroamphetamine/amphetamine 5mg tablet PO SCH ×3 (10:44→21:00)
[2018-09-17] MEDS: sertraline 50mg tablet PO SCH (10:44)
[2018-09-17] MEDS: levoTHYROXINE 112mcg tablet PO SCH (10:44)
[2018-09-17] MEDS: furosemide 20MG tablet PO SCH (10:44)
[2018-09-17] MEDS: gabapentin 300mg capsule PO SCH ×2 (10:44→19:54)
[2018-09-17] MEDS ORDERED: buPROPion SR 100mg tab PO ONE (10:55)
[2018-09-17] MEDS: diphenhydrAMINE 25mg capsule PO PRN (11:13)
[2018-09-17 12:00] VITALS: BP 94/40
[2018-09-17] MEDS: carbidopa/levodopa 25/100mg CR tablet PO SCH (14:52)
[2018-09-17] MEDS: VANCOmycin 1250MG/NS 250ml Bag 250 ML IV SCH (17:35)
--- NOTE | 2018-09-17 19:04 | NUR ---
Patient in room [facility]. I have received report from Tamika CEJA and had the opportunity to ask questions and assume patient care.
[2018-09-17] MEDS: docusate sod 100mg capsule PO SCH (19:54)
[2018-09-17] MEDS: buPROPion SR 100mg tab PO SCH (19:57)
[2018-09-17] MEDS: clozapine 100mg tablet PO SCH ×3 (19:59→21:49)
[2018-09-17 20:00] VITALS: BP 99/49
[2018-09-17] MEDS: atorvastatin 20mg tablet PO SCH (21:50)
[2018-09-18] VITALS: BP 92/56
[2018-09-18] MEDS ORDERED: VANCOMYCIN LEVEL IV ONE (03:30)
[2018-09-18] MEDS: VANCOmycin 1250MG/NS 250ml Bag 250 ML IV SCH ×2 (05:00→17:53)
[2018-09-18] MEDS: normal saline 1000ml 1,000 ML IV SCH ×3 (05:41→21:59)
[2018-09-18 06:17] LABS: BASOPHILS # (AUTO) 0.1 X10'3 (0-0.2); BASOPHILS % (AUTO) 0.6 % (0-1); EOSINOPHILS # (AUTO) 0.4 X10'3 (0-0.9); EOSINOPHILS % (AUTO) 4.2 % (0-6); HEMATOCRIT 32.4 % (35.0-45.0); LYMPHOCYTES # (AUTO) 1.6 X10'3 (1.1-4.8); LYMPHOCYTES % (AUTO) 18.5 % (21-51); MEAN CORPUSCULAR HEMOGLOBIN 29.6 PG (27.0-31.0); MEAN CORPUSCULAR HGB CONC 33.9 g/dL (33.0-36.5); MEAN CORPUSCULAR VOLUME 87.3 FL (78-98); MEAN PLATELET VOLUME 7.7 FL (7.4-10.4); MONOCYTES # (AUTO) 0.6 X10'3 (0-0.9); MONOCYTES % (AUTO) 7.1 % (2-12); NEUTROPHILS # (AUTO) 6.2 X10'3 (1.8-7.7); NEUTROPHILS % (AUTO) 69.6 % (42-75); PLATELET COUNT 307 X10'3 (140-440); RED BLOOD COUNT 3.71 X10'6 (4.20-5.60); RED CELL DISTRIBUTION WIDTH 14.1 % (11.5-14.5); WHITE BLOOD COUNT 8.9 X10'3 (4.5-11.0)
[2018-09-18 06:25] LABS: ALANINE AMINOTRANSFERASE 13 U/L (12-78); ALBUMIN 2.3 G/DL (3.4-5.0); ALBUMIN/GLOBULIN RATIO 0.7 (1.1-1.5); ALKALINE PHOSPHATASE 71 IU/L (46-116); ANION GAP 10 (8-16); ASPARTATE AMINO TRANSFERASE 11 U/L (10-37); BILIRUBIN,TOTAL 0.2 MG/DL (0.1-1.0); BLOOD UREA NITROGEN 6 MG/DL (7-18); BUN/CREATININE RATIO 9.1 (6.6-38.0); CALCIUM 8.2 MG/DL (8.5-10.1); CHLORIDE 108 MMOL/L (99-107); CREATININE 0.66 MG/DL (0.40-0.90); GLUCOSE 88 MG/DL (70-104); MAGNESIUM 1.6 MG/DL (1.5-2.4); PHOSPHORUS 4.5 MG/DL (2.3-4.5); POTASSIUM 3.9 MMOL/L (3.5-5.1); SODIUM 142 MMOL/L (135-145); TOTAL CARBON DIOXIDE 24.2 MMOL/L (24-32); TOTAL PROTEIN 5.8 G/DL (6.4-8.2); eGFR > 90 ML/MIN
--- NOTE | 2018-09-18 06:25 | NUR ---
Patient in room [facility]. I have received report from BRENNA Caal and had the opportunity to ask questions and assume patient care.
[2018-09-18 06:30] VITALS: BP 116/59
--- NOTE | 2018-09-18 06:32 | NUR ---
Problems reprioritized. Patient report given, questions answered & plan of care reviewed with Ana Luisa RN.
[2018-09-18] MEDS: K and/or MAG REPLACEMENT MC SCH (06:50)
[2018-09-18] MEDS: lactobacillus rhamnosus 10,000 MMU CELLS/CAPSULE PO SCH ×2 (07:52→19:23)
[2018-09-18] MEDS: metroNIDAZOLE-Flagyl 500mg/NS 100 ML IV SCH ×2 (07:52→16:49)
[2018-09-18] MEDS: sertraline 50mg tablet PO SCH (07:52)
[2018-09-18] MEDS: docusate sod 100mg capsule PO SCH ×2 (07:52→19:24)
[2018-09-18] MEDS: buPROPion SR 100mg tab PO SCH ×2 (07:53→19:23)
[2018-09-18] MEDS: oxybutynin 5mg tablet PO SCH ×2 (07:53→19:24)
[2018-09-18] MEDS: gabapentin 300mg capsule PO SCH ×2 (07:53→19:23)
[2018-09-18] MEDS: furosemide 20MG tablet PO SCH (07:53)
[2018-09-18] MEDS: levoTHYROXINE 112mcg tablet PO SCH (07:53)
[2018-09-18] MEDS: dextroamphetamine/amphetamine 5mg tablet PO SCH ×3 (07:55→20:37)
[2018-09-18] MEDS: HYDROcodone/acetaminophen 10/325mg tab PO PRN (07:56)
[2018-09-18] MEDS: HYDROmorphone 1 mg/ml syringe IV PRN ×3 (10:17→21:36)
[2018-09-18 11:00] VITALS: BP 96/54
[2018-09-18] MEDS: carbidopa/levodopa 25/100mg CR tablet PO SCH (14:06)
[2018-09-18] MEDS: oxyCODONE/APAP 10/325mg tablet PO PRN ×2 (14:07→23:40)
[2018-09-18 18:00] VITALS: BP 97/49
--- NOTE | 2018-09-18 18:25 | NUR ---
Problems reprioritized. Patient report given, questions answered & plan of care reviewed with BRENNA Abraham & BRENNA Caal.
--- NOTE | 2018-09-18 19:15 | NUR ---
Patient in room [facility]. I have received report from Ana Luisa CEJA and had the opportunity to ask questions and assume patient care.
[2018-09-18] MEDS: diphenhydrAMINE 25mg capsule PO PRN (19:24)
[2018-09-18] MEDS: clozapine 100mg tablet PO SCH ×3 (19:30→21:54)
[2018-09-18] MEDS: atorvastatin 20mg tablet PO SCH (21:54)
[2018-09-19] VITALS: BP 90/48
[2018-09-19] MEDS: metroNIDAZOLE-Flagyl 500mg/NS 100 ML IV SCH ×3 (00:19→15:37)
[2018-09-19] MEDS: HYDROmorphone inj. 0.5 MG/0.5 ML DISP.SYRIN IV PRN ×4 (02:50→19:51)
[2018-09-19] MEDS ORDERED: VANCOMYCIN LEVEL IV ONE ×2 (03:30→15:30)
[2018-09-19] MEDS: VANCOmycin 1250MG/NS 250ml Bag 250 ML IV SCH (04:14)
[2018-09-19 05:33] LABS: BASOPHILS % (AUTO) 0.6 % (0-1); EOSINOPHILS # (AUTO) 0.4 X10'3 (0-0.9); EOSINOPHILS % (AUTO) 4.9 % (0-6); HEMATOCRIT 31.4 % (35.0-45.0); HEMOGLOBIN 10.4 g/dl (12.0-16.0); LYMPHOCYTES # (AUTO) 1.5 X10'3 (1.1-4.8); MEAN CORPUSCULAR HEMOGLOBIN 29.3 PG (27.0-31.0); MEAN CORPUSCULAR VOLUME 88.8 FL (78-98); MEAN PLATELET VOLUME 7.4 FL (7.4-10.4); MONOCYTES # (AUTO) 0.6 X10'3 (0-0.9); MONOCYTES % (AUTO) 7.7 % (2-12); NEUTROPHILS # (AUTO) 5.5 X10'3 (1.8-7.7); NEUTROPHILS % (AUTO) 67.8 % (42-75); PLATELET COUNT 298 X10'3 (140-440); RED BLOOD COUNT 3.53 X10'6 (4.20-5.60); RED CELL DISTRIBUTION WIDTH 14.5 % (11.5-14.5); WHITE BLOOD COUNT 8.1 X10'3 (4.5-11.0)
[2018-09-19 05:52] LABS: ALANINE AMINOTRANSFERASE 11 U/L (12-78); ALBUMIN 2.3 G/DL (3.4-5.0); ALBUMIN/GLOBULIN RATIO 0.7 (1.1-1.5); ALKALINE PHOSPHATASE 70 IU/L (46-116); ANION GAP 8 (8-16); ASPARTATE AMINO TRANSFERASE 15 U/L (10-37); BILIRUBIN,TOTAL 0.2 MG/DL (0.1-1.0); BLOOD UREA NITROGEN 7 MG/DL (7-18); BUN/CREATININE RATIO 8.9 (6.6-38.0); CALCIUM 8.2 MG/DL (8.5-10.1); CHLORIDE 108 MMOL/L (99-107); CREATININE 0.79 MG/DL (0.40-0.90); GLUCOSE 108 MG/DL (70-104); MAGNESIUM 1.6 MG/DL (1.5-2.4); PHOSPHORUS 4.9 MG/DL (2.3-4.5); SODIUM 143 MMOL/L (135-145); TOTAL CARBON DIOXIDE 26.8 MMOL/L (24-32); TOTAL PROTEIN 5.6 G/DL (6.4-8.2); eGFR 76 ML/MIN
--- NOTE | 2018-09-19 06:20 | NUR ---
Patient in room [facility]. I have received report from Afua CEJA and had the opportunity to ask questions and assume patient care.
--- NOTE | 2018-09-19 06:31 | NUR ---
Problems reprioritized. Patient report given, questions answered & plan of care reviewed with Airam CEJA.
[2018-09-19 07:18] VITALS: BP 110/60
[2018-09-19] MEDS: buPROPion SR 100mg tab PO SCH ×2 (07:46→20:37)
[2018-09-19] MEDS: sertraline 50mg tablet PO SCH (07:46)
[2018-09-19] MEDS: docusate sod 100mg capsule PO SCH ×2 (07:46→20:37)
[2018-09-19] MEDS: gabapentin 300mg capsule PO SCH ×2 (07:46→20:37)
[2018-09-19] MEDS: levoTHYROXINE 112mcg tablet PO SCH (07:46)
[2018-09-19] MEDS: furosemide 20MG tablet PO SCH (07:46)
[2018-09-19] MEDS: lactobacillus rhamnosus 10,000 MMU CELLS/CAPSULE PO SCH ×2 (07:46→20:37)
[2018-09-19] MEDS: oxybutynin 5mg tablet PO SCH ×2 (07:46→20:37)
[2018-09-19] MEDS: K and/or MAG REPLACEMENT MC SCH (07:47)
[2018-09-19] MEDS: dextroamphetamine/amphetamine 5mg tablet PO SCH ×3 (07:47→20:43)
[2018-09-19] MEDS: oxyCODONE/APAP 10/325mg tablet PO PRN ×2 (08:28→22:25)
[2018-09-19] MEDS: normal saline 1000ml 1,000 ML IV SCH ×2 (10:11→20:41)
[2018-09-19 11:36] VITALS: BP 102/49
--- NOTE | 2018-09-19 13:28 | NUR ---
WOUND VAC EDUCATION PROVIDED BY WOUND CARE 1. Patient instructed to call the Wound Center or their Home Health Agency immediately if: * They notice a change in the color or amount of the fluid in the canister. * Their wound looks more red than usual or has a foul smell. * The skin around their wound looks reddened or irritated. * The dressing feels loose or appears to be loose. * They experience any increase or changes in their pain. * The alarm will not turn off. 2. Patient instructed that they should not be disconnected from suction for more than 2 hours at a time. * If they are not able to get the suction back on, they need to remove the dressing and take all of the foam out of the wound. * Then moisten sterile gauze with normal saline and place on/in the wound. * Change the dressing once a day until arrangements have been made to replace the wound vac dressing. 3. Patient instructed to turn the wound vac machine OFF and call 911 or go to the ED immediately if their canister fills rapidly with blood. 4. If any of these occur while in the hospital tell a nurse immediately. Addendum: 09/19/18 at 1329 by Mainor Kohler RN Amended: Links added.
[2018-09-19] MEDS: carbidopa/levodopa 25/100mg CR tablet PO SCH (14:52)
--- NOTE | 2018-09-19 18:27 | NUR ---
Problems reprioritized. Patient report given, questions answered & plan of care reviewed with Ambreen CEJA.
[2018-09-19] MEDS: clozapine 100mg tablet PO SCH ×3 (19:30→22:25)
[2018-09-19] MEDS: ampicillin inj 1 GM in normal saline 100ml IV soln 100 ML IV SCH (19:50)
[2018-09-19 20:00] VITALS: BP 107/33
[2018-09-19] MEDS: atorvastatin 20mg tablet PO SCH (20:37)
[2018-09-20] VITALS (31 sets, daily range): BP systolic 82–135; BP diastolic 36–65
[2018-09-20] MEDS: ampicillin inj 1 GM in normal saline 100ml IV soln 100 ML IV SCH ×4 (02:30→19:14)
[2018-09-20] MEDS: HYDROmorphone inj. 0.5 MG/0.5 ML DISP.SYRIN IV PRN ×3 (02:31→16:11)
[2018-09-20 05:33] LABS: BASOPHILS # (AUTO) 0.1 X10'3 (0-0.2); BASOPHILS % (AUTO) 0.6 % (0-1); EOSINOPHILS # (AUTO) 0.4 X10'3 (0-0.9); EOSINOPHILS % (AUTO) 4.5 % (0-6); HEMATOCRIT 34.1 % (35.0-45.0); HEMOGLOBIN 11.3 g/dl (12.0-16.0); LYMPHOCYTES # (AUTO) 1.7 X10'3 (1.1-4.8); LYMPHOCYTES % (AUTO) 17.6 % (21-51); MEAN CORPUSCULAR HEMOGLOBIN 29.5 PG (27.0-31.0); MEAN CORPUSCULAR HGB CONC 33.2 g/dL (33.0-36.5); MEAN PLATELET VOLUME 7.4 FL (7.4-10.4); MONOCYTES # (AUTO) 0.7 X10'3 (0-0.9); MONOCYTES % (AUTO) 6.8 % (2-12); NEUTROPHILS # (AUTO) 6.9 X10'3 (1.8-7.7); NEUTROPHILS % (AUTO) 70.5 % (42-75); PLATELET COUNT 342 X10'3 (140-440); RED BLOOD COUNT 3.83 X10'6 (4.20-5.60); RED CELL DISTRIBUTION WIDTH 14.5 % (11.5-14.5); WHITE BLOOD COUNT 9.8 X10'3 (4.5-11.0)
[2018-09-20 06:10] LABS: ALANINE AMINOTRANSFERASE 19 U/L (12-78); ALBUMIN 2.4 G/DL (3.4-5.0); ALBUMIN/GLOBULIN RATIO 0.7 (1.1-1.5); ALKALINE PHOSPHATASE 73 IU/L (46-116); ANION GAP 12 (8-16); ASPARTATE AMINO TRANSFERASE 8 U/L (10-37); BILIRUBIN,TOTAL 0.2 MG/DL (0.1-1.0); BLOOD UREA NITROGEN 10 MG/DL (7-18); BUN/CREATININE RATIO 14.5 (6.6-38.0); CALCIUM 8.7 MG/DL (8.5-10.1); CHLORIDE 107 MMOL/L (99-107); CREATININE 0.69 MG/DL (0.40-0.90); GLUCOSE 100 MG/DL (70-104); MAGNESIUM 1.6 MG/DL (1.5-2.4); PHOSPHORUS 4.6 MG/DL (2.3-4.5); SODIUM 143 MMOL/L (135-145); TOTAL CARBON DIOXIDE 24.3 MMOL/L (24-32); TOTAL PROTEIN 5.9 G/DL (6.4-8.2); eGFR 89 ML/MIN
--- NOTE | 2018-09-20 06:15 | NUR ---
Patient in room [facility]. I have received report from Ambreen CEJA and had the opportunity to ask questions and assume patient care.
[2018-09-20] MEDS: normal saline 1000ml 1,000 ML IV SCH ×2 (06:35→16:06)
[2018-09-20] MEDS: oxyCODONE/APAP 10/325mg tablet PO PRN ×2 (06:35→20:32)
--- NOTE | 2018-09-20 06:41 | NUR ---
Problems reprioritized. Patient report given, questions answered & plan of care reviewed with BRENNA Alegria.
[2018-09-20] MEDS: levoTHYROXINE 112mcg tablet PO SCH (07:34)
[2018-09-20] MEDS: sertraline 50mg tablet PO SCH (07:34)
[2018-09-20] MEDS: buPROPion SR 100mg tab PO SCH ×2 (07:34→19:09)
[2018-09-20] MEDS: gabapentin 300mg capsule PO SCH ×2 (07:34→19:09)
[2018-09-20] MEDS: lactobacillus rhamnosus 10,000 MMU CELLS/CAPSULE PO SCH ×2 (07:34→19:08)
[2018-09-20] MEDS: oxybutynin 5mg tablet PO SCH ×2 (07:34→19:08)
[2018-09-20] MEDS: docusate sod 100mg capsule PO SCH ×2 (07:34→19:09)
[2018-09-20] MEDS: furosemide 20MG tablet PO SCH (07:35)
[2018-09-20] MEDS: dextroamphetamine/amphetamine 5mg tablet PO SCH ×3 (07:35→21:00)
[2018-09-20] MEDS: K and/or MAG REPLACEMENT MC SCH (08:00)
--- NOTE | 2018-09-20 08:00 | NUR ---
Dr. Norman informed of redness to right side of wound vac site. visualized abdomen and ordered pt to be NPO and that he will be taking pt back to OR.
[2018-09-20] MEDS ORDERED: ringers solution, lacted 1,000 ML IV ONE (09:17)
[2018-09-20] MEDS: HYDROmorphone 1 mg/ml syringe IV PRN ×2 (11:49→19:10)
--- NOTE | 2018-09-20 12:55 | NUR ---
Patient report given report to recovery room nurse Selwyn CEJA.
[2018-09-20] MEDS ORDERED: ringers solution, lacted 1,000 ML IV SCH (13:06)
[2018-09-20] MEDS ORDERED: labetalol 20mg/4ml (5mg/ml) syringe IV PRN (13:10)
[2018-09-20] MEDS ORDERED: HYDROmorphone inj. 0.5 MG/0.5 ML DISP.SYRIN IV PRN (13:10)
[2018-09-20] MEDS ORDERED: morphine 4 MG/ML inj SYRINge IV PRN (13:10)
[2018-09-20] MEDS ORDERED: hydrALAZINE 20mg/ml inj. IV PRN (13:10)
[2018-09-20] MEDS ORDERED: ondansetron/PF 4mg/2ml inj IV PRN (13:10)
[2018-09-20] MEDS ORDERED: sevoflurane 250ml liquid IH ONE (13:35)
[2018-09-20] MEDS ORDERED: midazolam 2 mg/2 ml injection ONE (13:36)
[2018-09-20] MEDS ORDERED: propofol inj 20 ML IV ONE (13:38)
[2018-09-20] MEDS ORDERED: LIDOcaine 2% (20mg/ml) 5ml vial ONE (13:38)
[2018-09-20] MEDS ORDERED: bacitracin 15gm ointment TP ONE (14:13)
--- NOTE | 2018-09-20 14:40 | NUR ---
Received from OR via BED, accompanied by Anesthesiologist DR NORWOOD and report given by Anesthesiologist. PT DROWSY, DENIES PAIN, ABDOMEN W/WOUNDVAC TO 125MMG LCS, NO DRAINAGE IN TUBING. Addendum: 09/20/18 at 1451 by Rebecca Burgos RN Amended: Links added.
[2018-09-20] MEDS: carbidopa/levodopa 25/100mg CR tablet PO SCH (15:00)
--- NOTE | 2018-09-20 15:10 | NUR ---
Wound consult: Pt s/p I&D of abdominal wall abscess with wound VAC placement. Attempted visit with pt at bedside however pt in OR. Written protein education and RD contact information left at bedside for patient's return. Pt currently NPO however previously on regular diet with fluctuating PO intake mostly 100% with some recent 50-75%. Will monitor diet advancement and need for ONS/additional protein. [facility] 09/18. Will continue to follow. Recommendations: 1) Resume regular diet as medically indicated 2) Monitor need for ONS/additional protein with diet advancement 3) Monitor need for f/u verbal protein education 4) Routine bowel care 5) Wt per rx Addendum: 09/20/18 at [address] Amended: Links added.
[2018-09-20] MEDS: morphine 4 MG/ML inj SYRINge IV PRN ×2 (15:24→15:31)
--- NOTE | 2018-09-20 15:47 | NUR ---
Received pt report from recovery nurse Rebecca ECJA.
--- NOTE | 2018-09-20 16:42 | NUR ---
Report called to receiving nurse. Transferred via BED, PURSE IN PTS Belongings BAG SENT W/PT TO ROOM 360B, RECEIVING RN AT BEDSIDE TO RECEIVE PT, BLL, CALL LIGHT GIVEN, SIDE RAILS UP X2. Special Issues communicated to receiving nurse. YES. Addendum: 09/20/18 at 1648 by Rebecca Burgos RN Amended: Links added.
--- NOTE | 2018-09-20 18:39 | NUR ---
Problems reprioritized. Patient report given, questions answered & plan of care reviewed with Ambreen CEJA.
[2018-09-20] MEDS: diphenhydrAMINE 25mg capsule PO PRN (19:07)
[2018-09-20] MEDS: clozapine 100mg tablet PO SCH ×3 (19:30→21:39)
[2018-09-20] MEDS: atorvastatin 20mg tablet PO SCH (20:32)
[2018-09-21 00:01] VITALS: BP 100/56
[2018-09-21] MEDS: normal saline 1000ml 1,000 ML IV SCH ×3 (01:21→22:06)
[2018-09-21] MEDS: ampicillin inj 1 GM in normal saline 100ml IV soln 100 ML IV SCH ×4 (01:21→20:35)
[2018-09-21 04:00] VITALS: BP 121/60
[2018-09-21] MEDS: oxyCODONE/APAP 10/325mg tablet PO PRN ×2 (05:08→13:55)
[2018-09-21] MEDS ORDERED: famotidine 20mg tablet PO ONE (06:00)
--- NOTE | 2018-09-21 06:28 | NUR ---
Patient in room [facility]. I have received report from Ambreen Pérez RN and had the opportunity to ask questions and assume patient care.
--- NOTE | 2018-09-21 06:38 | NUR ---
Problems reprioritized. Patient report given, questions answered & plan of care reviewed with BRENNA Eugene.
[2018-09-21 08:00] VITALS: BP 120/56
[2018-09-21] MEDS: K and/or MAG REPLACEMENT MC SCH (08:00)
[2018-09-21] MEDS: levoTHYROXINE 112mcg tablet PO SCH (08:09)
[2018-09-21] MEDS: gabapentin 300mg capsule PO SCH ×2 (08:10→20:30)
[2018-09-21] MEDS: dextroamphetamine/amphetamine 5mg tablet PO SCH ×3 (08:10→20:36)
[2018-09-21] MEDS: lactobacillus rhamnosus 10,000 MMU CELLS/CAPSULE PO SCH ×2 (08:10→20:30)
[2018-09-21] MEDS: furosemide 20MG tablet PO SCH (08:10)
[2018-09-21] MEDS: buPROPion SR 100mg tab PO SCH ×2 (08:10→20:30)
[2018-09-21] MEDS: oxybutynin 5mg tablet PO SCH ×2 (08:10→20:31)
[2018-09-21] MEDS: docusate sod 100mg capsule PO SCH ×2 (08:10→20:31)
[2018-09-21] MEDS: nicotine 14mg patch - 24hr TD SCH (08:11)
[2018-09-21] MEDS: sertraline 50mg tablet PO SCH (08:16)
[2018-09-21] MEDS: HYDROmorphone inj. 0.5 MG/0.5 ML DISP.SYRIN IV PRN (11:22)
[2018-09-21 12:00] VITALS: BP 100/55
[2018-09-21] MEDS: carbidopa/levodopa 25/100mg CR tablet PO SCH (15:33)
--- NOTE | 2018-09-21 18:20 | NUR ---
Patient in room [facility]. I have received report from Valorie CEJA and had the opportunity to ask questions and assume patient care.
--- NOTE | 2018-09-21 18:25 | NUR ---
Problems reprioritized. Patient report given, questions answered & plan of care reviewed with BRENNA Marquez.
[2018-09-21] MEDS: HYDROmorphone 1 mg/ml syringe IV PRN (19:16)
[2018-09-21] MEDS: clozapine 100mg tablet PO SCH ×3 (19:30→21:44)
[2018-09-21 20:00] VITALS: BP 117/51
[2018-09-21] MEDS: atorvastatin 20mg tablet PO SCH (20:31)
[2018-09-22] VITALS: BP 101/35
[2018-09-22] MEDS: ampicillin inj 1 GM in normal saline 100ml IV soln 100 ML IV SCH ×4 (03:15→19:47)
[2018-09-22] MEDS: HYDROmorphone 1 mg/ml syringe IV PRN ×2 (04:43→19:47)
--- NOTE | 2018-09-22 06:18 | NUR ---
Patient in room [facility]. I have received report from BRENNA Marquez and had the opportunity to ask questions and assume patient care.
--- NOTE | 2018-09-22 06:18 | NUR ---
Problems reprioritized. Patient report given, questions answered & plan of care reviewed with Valorie RN.
[2018-09-22] MEDS: oxyCODONE/APAP 10/325mg tablet PO PRN ×2 (07:11→21:21)
[2018-09-22] MEDS: gabapentin 300mg capsule PO SCH ×2 (07:12→21:15)
[2018-09-22] MEDS: furosemide 20MG tablet PO SCH (07:12)
[2018-09-22] MEDS: docusate sod 100mg capsule PO SCH ×2 (07:12→21:14)
[2018-09-22] MEDS: dextroamphetamine/amphetamine 5mg tablet PO SCH ×3 (07:12→21:00)
[2018-09-22] MEDS: sertraline 50mg tablet PO SCH (07:12)
[2018-09-22] MEDS: lactobacillus rhamnosus 10,000 MMU CELLS/CAPSULE PO SCH ×2 (07:12→21:15)
[2018-09-22] MEDS: levoTHYROXINE 112mcg tablet PO SCH (07:13)
[2018-09-22] MEDS: oxybutynin 5mg tablet PO SCH ×2 (07:13→21:14)
[2018-09-22] MEDS: buPROPion SR 100mg tab PO SCH ×2 (07:13→21:15)
[2018-09-22] MEDS: nicotine 14mg patch - 24hr TD SCH (07:17)
[2018-09-22 07:26] VITALS: BP 105/62
[2018-09-22] MEDS: K and/or MAG REPLACEMENT MC SCH (08:00)
[2018-09-22] MEDS: HYDROmorphone inj. 0.5 MG/0.5 ML DISP.SYRIN IV PRN ×2 (09:15→13:41)
[2018-09-22 12:00] VITALS: BP 107/45
[2018-09-22] MEDS: normal saline 1000ml 1,000 ML IV SCH ×2 (13:40→18:06)
[2018-09-22] MEDS: carbidopa/levodopa 25/100mg CR tablet PO SCH (15:52)
[2018-09-22 18:00] VITALS: BP 123/47
--- NOTE | 2018-09-22 18:26 | NUR ---
Patient in room [facility] 360. I have received report from BRENNA Eugene and had the opportunity to ask questions and assume patient care. Addendum: 09/22/18 at 1827 by Apple Manriquez RN Amended: Links added.
[2018-09-22] MEDS: clozapine 100mg tablet PO SCH ×3 (19:30→22:08)
[2018-09-22] MEDS: atorvastatin 20mg tablet PO SCH (21:15)
[2018-09-23] VITALS: BP 109/62
[2018-09-23] MEDS: normal saline 1000ml 1,000 ML IV SCH ×2 (01:45→12:55)
[2018-09-23] MEDS: ampicillin inj 1 GM in normal saline 100ml IV soln 100 ML IV SCH ×4 (01:45→19:29)
--- NOTE | 2018-09-23 06:51 | NUR ---
Problems reprioritized. Patient report given, questions answered & plan of care reviewed with BRENNA Stokes. Addendum: 09/23/18 at 0651 by Apple Manriquez RN Amended: Links added.
--- NOTE | 2018-09-23 06:59 | NUR ---
Patient in room [facility]. I have received report from Ambreen Concepcion RN and had the opportunity to ask questions and assume patient care.
[2018-09-23 07:00] VITALS: BP 117/33
[2018-09-23] MEDS: oxyCODONE/APAP 10/325mg tablet PO PRN ×3 (07:23→21:31)
[2018-09-23] MEDS: K and/or MAG REPLACEMENT MC SCH (08:00)
[2018-09-23] MEDS: nicotine 14mg patch - 24hr TD SCH (09:12)
[2018-09-23] MEDS: levoTHYROXINE 112mcg tablet PO SCH (09:13)
[2018-09-23] MEDS: dextroamphetamine/amphetamine 5mg tablet PO SCH ×3 (09:13→21:00)
[2018-09-23] MEDS: gabapentin 300mg capsule PO SCH ×2 (09:13→19:27)
[2018-09-23] MEDS: furosemide 20MG tablet PO SCH (09:13)
[2018-09-23] MEDS: docusate sod 100mg capsule PO SCH ×4 (09:13→19:27)
[2018-09-23] MEDS: oxybutynin 5mg tablet PO SCH ×2 (09:13→19:27)
[2018-09-23] MEDS: lactobacillus rhamnosus 10,000 MMU CELLS/CAPSULE PO SCH ×2 (09:13→19:27)
[2018-09-23] MEDS: buPROPion SR 100mg tab PO SCH ×2 (09:13→19:27)
[2018-09-23] MEDS: sertraline 50mg tablet PO SCH (09:18)
[2018-09-23] MEDS: HYDROmorphone 1 mg/ml syringe IV PRN ×3 (10:49→19:24)
[2018-09-23 11:00] VITALS: BP 114/60
[2018-09-23 11:35] LABS: BASOPHILS # (AUTO) 0.1 X10'3 (0-0.2); BASOPHILS % (AUTO) 0.8 % (0-1); EOSINOPHILS # (AUTO) 0.3 X10'3 (0-0.9); HEMATOCRIT 34.6 % (35.0-45.0); HEMOGLOBIN 11.5 g/dl (12.0-16.0); LYMPHOCYTES # (AUTO) 1.8 X10'3 (1.1-4.8); MEAN CORPUSCULAR HEMOGLOBIN 29.4 PG (27.0-31.0); MEAN CORPUSCULAR HGB CONC 33.4 g/dL (33.0-36.5); MEAN CORPUSCULAR VOLUME 88.2 FL (78-98); MONOCYTES # (AUTO) 0.5 X10'3 (0-0.9); MONOCYTES % (AUTO) 7.4 % (2-12); NEUTROPHILS # (AUTO) 4.2 X10'3 (1.8-7.7); NEUTROPHILS % (AUTO) 60.8 % (42-75); PLATELET COUNT 352 X10'3 (140-440); RED BLOOD COUNT 3.92 X10'6 (4.20-5.60); RED CELL DISTRIBUTION WIDTH 14.4 % (11.5-14.5)
[2018-09-23 11:43] LABS: ALANINE AMINOTRANSFERASE 20 U/L (12-78); ALBUMIN 2.6 G/DL (3.4-5.0); ALBUMIN/GLOBULIN RATIO 0.8 (1.1-1.5); ANION GAP 8 (8-16); ASPARTATE AMINO TRANSFERASE 11 U/L (10-37); BILIRUBIN,TOTAL 0.2 MG/DL (0.1-1.0); BLOOD UREA NITROGEN 11 MG/DL (7-18); BUN/CREATININE RATIO 12.1 (6.6-38.0); CALCIUM 8.4 MG/DL (8.5-10.1); CHLORIDE 109 MMOL/L (99-107); CREATININE 0.91 MG/DL (0.40-0.90); GLUCOSE 136 MG/DL (70-104); MAGNESIUM 1.7 MG/DL (1.5-2.4); PHOSPHORUS 3.8 MG/DL (2.3-4.5); SODIUM 143 MMOL/L (135-145); TOTAL CARBON DIOXIDE 26.1 MMOL/L (24-32); TOTAL PROTEIN 5.9 G/DL (6.4-8.2); eGFR 64 ML/MIN
[2018-09-23 11:54] LABS: ALKALINE PHOSPHATASE 72 IU/L (46-116)
[2018-09-23] MEDS ORDERED: magnesium hydroxide 30ml (MOM) UD suspension PO PRN (12:40)
[2018-09-23] MEDS: carbidopa/levodopa 25/100mg CR tablet PO SCH (15:21)
[2018-09-23 18:00] VITALS: BP 116/54
--- NOTE | 2018-09-23 18:40 | NUR ---
Patient in room [facility]. I have received report from BRENNA Stokes and had the opportunity to ask questions and assume patient care.
--- NOTE | 2018-09-23 18:42 | NUR ---
Problems reprioritized. Patient report given, questions answered & plan of care reviewed with Naheed CEJA.
[2018-09-23] MEDS: clozapine 100mg tablet PO SCH ×3 (19:28→22:41)
[2018-09-23] MEDS: atorvastatin 20mg tablet PO SCH (21:31)
[2018-09-24 00:54] VITALS: BP 108/51
[2018-09-24] MEDS: ampicillin inj 1 GM in normal saline 100ml IV soln 100 ML IV SCH ×4 (01:30→20:51)
[2018-09-24] MEDS: normal saline 1000ml 1,000 ML IV SCH ×2 (02:45→17:48)
[2018-09-24] MEDS: HYDROmorphone 1 mg/ml syringe IV PRN ×3 (03:40→19:07)
--- NOTE | 2018-09-24 06:22 | NUR ---
Problems reprioritized. Patient report given, questions answered & plan of care reviewed with BRENNA Stokes.
--- NOTE | 2018-09-24 06:32 | NUR ---
Patient in room [facility]. I have received report from Naheed CEJA and had the opportunity to ask questions and assume patient care.
[2018-09-24 07:00] VITALS: BP 107/58
[2018-09-24] MEDS: nicotine 14mg patch - 24hr TD SCH (07:26)
[2018-09-24] MEDS: lactobacillus rhamnosus 10,000 MMU CELLS/CAPSULE PO SCH ×2 (07:28→20:49)
[2018-09-24] MEDS: oxybutynin 5mg tablet PO SCH ×2 (07:28→20:49)
[2018-09-24] MEDS: docusate sod 100mg capsule PO SCH ×2 (07:29→20:49)
[2018-09-24] MEDS: gabapentin 300mg capsule PO SCH ×2 (07:29→20:50)
[2018-09-24] MEDS: oxyCODONE/APAP 10/325mg tablet PO PRN ×3 (07:29→21:42)
[2018-09-24] MEDS: furosemide 20MG tablet PO SCH (07:29)
[2018-09-24] MEDS: buPROPion SR 100mg tab PO SCH ×2 (07:29→20:49)
[2018-09-24] MEDS: levoTHYROXINE 112mcg tablet PO SCH (07:29)
[2018-09-24] MEDS: dextroamphetamine/amphetamine 5mg tablet PO SCH ×3 (07:30→20:56)
[2018-09-24] MEDS: sertraline 50mg tablet PO SCH (07:36)
[2018-09-24] MEDS: K and/or MAG REPLACEMENT MC SCH (08:00)
[2018-09-24 11:00] VITALS: BP 94/52
[2018-09-24] MEDS: ketorolac tromethamine 15mg/ml inj. IV SCH ×2 (13:40→20:52)
[2018-09-24] MEDS: carbidopa/levodopa 25/100mg CR tablet PO SCH (15:09)
[2018-09-24 18:00] VITALS: BP 112/55
--- NOTE | 2018-09-24 18:49 | NUR ---
Patient in room [facility]. I have received report from BRENNA Stokes and had the opportunity to ask questions and assume patient care.
--- NOTE | 2018-09-24 18:55 | NUR ---
Problems reprioritized. Patient report given, questions answered & plan of care reviewed with Naheed CEJA.
[2018-09-24] MEDS: atorvastatin 20mg tablet PO SCH (20:50)
[2018-09-24] MEDS: clozapine 100mg tablet PO SCH (21:42)
[2018-09-25] VITALS: BP 100/58
[2018-09-25] MEDS: ketorolac tromethamine 15mg/ml inj. IV SCH ×3 (01:44→13:20)
[2018-09-25] MEDS: ampicillin inj 1 GM in normal saline 100ml IV soln 100 ML IV SCH ×3 (01:46→13:32)
[2018-09-25] MEDS: HYDROmorphone 1 mg/ml syringe IV PRN ×2 (04:09→10:41)
--- NOTE | 2018-09-25 06:30 | NUR ---
Patient in room [facility]. I have received report from Naheed CEJA and had the opportunity to ask questions and assume patient care.
--- NOTE | 2018-09-25 06:46 | NUR ---
Problems reprioritized. Patient report given, questions answered & plan of care reviewed with BRENNA Hand.
[2018-09-25] MEDS: sertraline 50mg tablet PO SCH (07:18)
[2018-09-25] MEDS: dextroamphetamine/amphetamine 5mg tablet PO SCH ×2 (07:18→13:20)
[2018-09-25] MEDS: oxyCODONE/APAP 10/325mg tablet PO PRN ×2 (07:19→13:30)
[2018-09-25] MEDS: buPROPion SR 100mg tab PO SCH (07:19)
[2018-09-25] MEDS: docusate sod 100mg capsule PO SCH (07:19)
[2018-09-25] MEDS: oxybutynin 5mg tablet PO SCH (07:19)
[2018-09-25] MEDS: nicotine 14mg patch - 24hr TD SCH (07:20)
[2018-09-25] MEDS: lactobacillus rhamnosus 10,000 MMU CELLS/CAPSULE PO SCH (07:20)
[2018-09-25] MEDS: gabapentin 300mg capsule PO SCH (07:20)
[2018-09-25] MEDS: furosemide 20MG tablet PO SCH (07:20)
[2018-09-25] MEDS: levoTHYROXINE 112mcg tablet PO SCH (07:20)
[2018-09-25 07:34] VITALS: BP 110/54
[2018-09-25] MEDS: K and/or MAG REPLACEMENT MC SCH (08:00)
[2018-09-25] MEDS: normal saline 1000ml 1,000 ML IV SCH (08:13)
[2018-09-25] MEDS ORDERED: OXYC-150 PO (10:56)
[2018-09-25 11:00] VITALS: BP 114/53
--- NOTE | 2018-09-25 12:30 | NUR ---
WOUND VAC EDUCATION PROVIDED BY WOUND CARE 1. Patient instructed to call the Wound Center or their Home Health Agency immediately if: * They notice a change in the color or amount of the fluid in the canister. * Their wound looks more red than usual or has a foul smell. * The skin around their wound looks reddened or irritated. * The dressing feels loose or appears to be loose. * They experience any increase or changes in their pain. * The alarm will not turn off. 2. Patient instructed that they should not be disconnected from suction for more than 2 hours at a time. * If they are not able to get the suction back on, they need to remove the dressing and take all of the foam out of the wound. * Then moisten sterile gauze with normal saline and place on/in the wound. * Change the dressing once a day until arrangements have been made to replace the wound vac dressing. 3. Patient instructed to turn the wound vac machine OFF and call 911 or go to the ED immediately if their canister fills rapidly with blood. 4. If any of these occur while in the hospital tell a nurse immediately. Addendum: 09/25/18 at 1231 by Mainor Kohler RN Amended: Links added.
--- NOTE | 2018-09-25 15:00 | NUR ---
Patient discharge at this time, discharge teaching was done with patient at this time. Patient understood discharge teaching and verbalized this to discharging nurse patient was also educated on her new medications at this time. Patient was discharge with her own wound vac and understands dressing changes as prior to her hospitalization. Patient walked out of hospital under her own power. IV was DC'd at this time as well.
[2018-09-25] MEDS ORDERED: LEVO750T21 PO (20:06)
== END 2018-09-25 15:15 | disposition home or self-care (01) | DRG 857 ==
LOC: ER 10:25 → SUR 3N 17:04
PROVIDERS: ADMIT Family Medicine; ATTEND Family Medicine
PROC: 0W9F0ZZ Drainage of Abdominal Wall, Open Approach (ICD-10-PCS; principal; 2018-09-15 17:44)
PROC: 0W9F0ZZ Drainage of Abdominal Wall, Open Approach (ICD-10-PCS; 2018-09-20)
DX: T81.41XA Infection following a procedure, superficial incisional surgical site, initial encounter (principal); L02.211 Cutaneous abscess of abdominal wall; L03.311 Cellulitis of abdominal wall; T81.31XA Disruption of external operation (surgical) wound, not elsewhere classified, initial encounter; E03.9 Hypothyroidism, unspecified; E78.5 Hyperlipidemia, unspecified; F25.9 Schizoaffective disorder, unspecified; F31.9 Bipolar disorder, unspecified; F90.9 Attention-deficit hyperactivity disorder, unspecified type; B95.61 Methicillin susceptible Staphylococcus aureus infection as the cause of diseases classified elsewhere; K70.10 Alcoholic hepatitis without ascites; G89.29 Other chronic pain; F17.200 Nicotine dependence, unspecified, uncomplicated; Y83.8 Other surgical procedures as the cause of abnormal reaction of the patient, or of later complication, without mention of misadventure at the time of the procedure; Z88.2 Allergy status to sulfonamides; Z88.6 Allergy status to analgesic agent; Z79.899 Other long term (current) drug therapy; Z79.890 Hormone replacement therapy; Z90.710 Acquired absence of both cervix and uterus; Z90.49 Acquired absence of other specified parts of digestive tract; Y92.89 Other specified places as the place of occurrence of the external cause
CPT/HCPCS: 36415; 71045; 80053; 80202; 82948; 83605; 83735; 84100; 84145; 85025; 87040; 87070; 87075; 87077; 87081; 87186; 96374; 96375; 97116; 97161; 99285; A4618; A6253; A6446; A6449; A6550; A7000; G0378; J0290; J1170; J1885; J2001; J2175; J2250; J2270; J2405; J2704; J3010; J3370; J3490; J7030; J7120; Q0163

== ENCOUNTER 2018-09-28 10:36 | Day surgery (SDC) | payer MEDICARE, MEDICAID ==
[~2018-09-28 10:36] MED LIST changes: +AMPH30CA3 PO; -CARB1TAB23 PO; +FURO20TA4 PO; +LEVO750T21 PO; -NORCO10T PO; +OXYC-150 PO
== END 2018-09-28 13:31 | disposition home or self-care (01) ==
LOC: WOUND CARE 10:36
PROVIDERS: ATTEND Surgery
DX: T81.89XD Other complications of procedures, not elsewhere classified, subsequent encounter (principal); L98.492 Non-pressure chronic ulcer of skin of other sites with fat layer exposed; E03.9 Hypothyroidism, unspecified; E66.01 Morbid (severe) obesity due to excess calories; G89.29 Other chronic pain; J42 Unspecified chronic bronchitis; E78.5 Hyperlipidemia, unspecified; F17.210 Nicotine dependence, cigarettes, uncomplicated; F10.10 Alcohol abuse, uncomplicated; F25.0 Schizoaffective disorder, bipolar type; F41.9 Anxiety disorder, unspecified; Z79.899 Other long term (current) drug therapy; Z90.710 Acquired absence of both cervix and uterus; Y83.8 Other surgical procedures as the cause of abnormal reaction of the patient, or of later complication, without mention of misadventure at the time of the procedure
CPT/HCPCS: 11045; 97605

== ENCOUNTER 2018-10-02 10:47 | Outpatient (CLI) | payer MEDICARE, MEDICAID | END 2018-10-02 13:10 | disposition home or self-care (01) | LOC: WOUND CARE 10:47 | PROVIDERS: ATTEND Surgery | DX: T81.89XD Other complications of procedures, not elsewhere classified, subsequent encounter (principal); L98.492 Non-pressure chronic ulcer of skin of other sites with fat layer exposed; E03.9 Hypothyroidism, unspecified; E66.01 Morbid (severe) obesity due to excess calories; G89.29 Other chronic pain; J42 Unspecified chronic bronchitis; E78.5 Hyperlipidemia, unspecified; F17.210 Nicotine dependence, cigarettes, uncomplicated; F10.10 Alcohol abuse, uncomplicated; F25.0 Schizoaffective disorder, bipolar type; F41.9 Anxiety disorder, unspecified; Z79.899 Other long term (current) drug therapy; Z90.710 Acquired absence of both cervix and uterus; Y83.8 Other surgical procedures as the cause of abnormal reaction of the patient, or of later complication, without mention of misadventure at the time of the procedure | CPT/HCPCS: 97605; A4456; A4663; A6234 ==

== ENCOUNTER 2018-10-05 10:28 | Outpatient (CLI) | payer MEDICARE, MEDICAID ==
[~2018-10-05 10:28] MED LIST changes: +BACL10TA PO; +CARB1TAB23 PO; +CIPR-230 PO; +NORCO10T PO
[2018-10-05] MEDS ORDERED: LIDOcaine 2% 5ml jelly ONE (11:57)
== END 2018-10-05 13:12 | disposition home or self-care (01) ==
LOC: WOUND CARE 10:28 → EDSTATUS 10:30 → WOUND CARE 13:12
PROVIDERS: ATTEND Surgery
DX: T81.89XD Other complications of procedures, not elsewhere classified, subsequent encounter (principal); L98.492 Non-pressure chronic ulcer of skin of other sites with fat layer exposed; E03.9 Hypothyroidism, unspecified; E66.01 Morbid (severe) obesity due to excess calories; G89.29 Other chronic pain; E78.5 Hyperlipidemia, unspecified; F17.210 Nicotine dependence, cigarettes, uncomplicated; F10.10 Alcohol abuse, uncomplicated; F25.0 Schizoaffective disorder, bipolar type; F41.9 Anxiety disorder, unspecified; Z79.899 Other long term (current) drug therapy; Z90.710 Acquired absence of both cervix and uterus; Z90.49 Acquired absence of other specified parts of digestive tract; Z79.890 Hormone replacement therapy; Z68.27 Body mass index [BMI] 27.0-27.9, adult; Y83.8 Other surgical procedures as the cause of abnormal reaction of the patient, or of later complication, without mention of misadventure at the time of the procedure
CPT/HCPCS: 97605

== ENCOUNTER 2018-10-09 11:30 | Day surgery (SDC) | payer MEDICARE, MEDICAID ==
[2018-10-09] MEDS ORDERED: LIDOcaine 2% 5ml jelly ONE ×2 (11:55)
== END 2018-10-09 13:05 | disposition home or self-care (01) ==
LOC: WOUND CARE 11:30
PROVIDERS: ATTEND Surgery
DX: T81.89XD Other complications of procedures, not elsewhere classified, subsequent encounter (principal); L98.492 Non-pressure chronic ulcer of skin of other sites with fat layer exposed; E03.9 Hypothyroidism, unspecified; E66.01 Morbid (severe) obesity due to excess calories; G89.29 Other chronic pain; J42 Unspecified chronic bronchitis; E78.5 Hyperlipidemia, unspecified; F17.210 Nicotine dependence, cigarettes, uncomplicated; F10.10 Alcohol abuse, uncomplicated; F25.0 Schizoaffective disorder, bipolar type; F41.9 Anxiety disorder, unspecified; Z79.899 Other long term (current) drug therapy; Z90.710 Acquired absence of both cervix and uterus; Y83.8 Other surgical procedures as the cause of abnormal reaction of the patient, or of later complication, without mention of misadventure at the time of the procedure
CPT/HCPCS: 97597; A4456; A4649; A4663

== ENCOUNTER 2018-10-12 11:04 | Outpatient (CLI) | payer MEDICARE, MEDICAID ==
[~2018-10-12 11:04] MED LIST changes: -BACL10TA PO; -CARB1TAB23 PO; -CIPR-230 PO; -NORCO10T PO
== END 2018-10-12 13:15 | disposition home or self-care (01) ==
LOC: WOUND CARE 11:04
PROVIDERS: ATTEND Surgery
DX: T81.89XD Other complications of procedures, not elsewhere classified, subsequent encounter (principal); L98.492 Non-pressure chronic ulcer of skin of other sites with fat layer exposed; E03.9 Hypothyroidism, unspecified; E66.01 Morbid (severe) obesity due to excess calories; G89.29 Other chronic pain; J42 Unspecified chronic bronchitis; E78.5 Hyperlipidemia, unspecified; F17.210 Nicotine dependence, cigarettes, uncomplicated; F10.10 Alcohol abuse, uncomplicated; F25.0 Schizoaffective disorder, bipolar type; F41.9 Anxiety disorder, unspecified; F90.9 Attention-deficit hyperactivity disorder, unspecified type; F31.9 Bipolar disorder, unspecified; Z79.899 Other long term (current) drug therapy; Z90.710 Acquired absence of both cervix and uterus; Z90.49 Acquired absence of other specified parts of digestive tract; Z68.27 Body mass index [BMI] 27.0-27.9, adult; Z79.890 Hormone replacement therapy; Y83.8 Other surgical procedures as the cause of abnormal reaction of the patient, or of later complication, without mention of misadventure at the time of the procedure
CPT/HCPCS: 97605; A4456; A4663

== ENCOUNTER 2018-10-16 10:30 | Day surgery (SDC) | payer MEDICARE, MEDICAID ==
[2018-10-16] MEDS ORDERED: LIDOcaine 2% 5ml jelly ONE (12:28)
== END 2018-10-16 13:30 | disposition home or self-care (01) ==
LOC: WOUND CARE 10:30
PROVIDERS: ATTEND Surgery
DX: T81.89XD Other complications of procedures, not elsewhere classified, subsequent encounter (principal); L98.492 Non-pressure chronic ulcer of skin of other sites with fat layer exposed; E03.9 Hypothyroidism, unspecified; E66.01 Morbid (severe) obesity due to excess calories; G89.29 Other chronic pain; J42 Unspecified chronic bronchitis; E78.5 Hyperlipidemia, unspecified; F17.210 Nicotine dependence, cigarettes, uncomplicated; F10.10 Alcohol abuse, uncomplicated; F25.0 Schizoaffective disorder, bipolar type; F41.9 Anxiety disorder, unspecified; F90.9 Attention-deficit hyperactivity disorder, unspecified type; F31.9 Bipolar disorder, unspecified; Z79.899 Other long term (current) drug therapy; Z90.710 Acquired absence of both cervix and uterus; Z90.49 Acquired absence of other specified parts of digestive tract; Z68.27 Body mass index [BMI] 27.0-27.9, adult; Z79.890 Hormone replacement therapy; Y83.8 Other surgical procedures as the cause of abnormal reaction of the patient, or of later complication, without mention of misadventure at the time of the procedure
CPT/HCPCS: 97597; A4663

== ENCOUNTER 2018-10-19 10:03 | Outpatient (CLI) | payer MEDICARE, MEDICAID | END 2018-10-19 12:25 | disposition home or self-care (01) | LOC: WOUND CARE 10:03 → EDSTATUS 10:30 → WOUND CARE 12:25 | PROVIDERS: ATTEND Surgery | DX: T81.89XD Other complications of procedures, not elsewhere classified, subsequent encounter (principal); L98.492 Non-pressure chronic ulcer of skin of other sites with fat layer exposed; E03.9 Hypothyroidism, unspecified; E66.01 Morbid (severe) obesity due to excess calories; G89.29 Other chronic pain; J42 Unspecified chronic bronchitis; E78.5 Hyperlipidemia, unspecified; F17.210 Nicotine dependence, cigarettes, uncomplicated; F10.10 Alcohol abuse, uncomplicated; F25.0 Schizoaffective disorder, bipolar type; F41.9 Anxiety disorder, unspecified; F90.9 Attention-deficit hyperactivity disorder, unspecified type; F31.9 Bipolar disorder, unspecified; Z79.899 Other long term (current) drug therapy; Z90.710 Acquired absence of both cervix and uterus; Z90.49 Acquired absence of other specified parts of digestive tract; Z68.27 Body mass index [BMI] 27.0-27.9, adult; Z79.890 Hormone replacement therapy; Y83.8 Other surgical procedures as the cause of abnormal reaction of the patient, or of later complication, without mention of misadventure at the time of the procedure | CPT/HCPCS: 97605; A4663 ==

== ENCOUNTER 2018-10-24 09:50 | Day surgery (SDC) | payer MEDICARE, MEDICAID | END 2018-10-24 13:09 | disposition home or self-care (01) | LOC: WOUND CARE 09:50 | PROVIDERS: ATTEND Surgery | DX: T81.89XD Other complications of procedures, not elsewhere classified, subsequent encounter (principal); L98.492 Non-pressure chronic ulcer of skin of other sites with fat layer exposed; E03.9 Hypothyroidism, unspecified; E66.01 Morbid (severe) obesity due to excess calories; G89.29 Other chronic pain; J42 Unspecified chronic bronchitis; E78.5 Hyperlipidemia, unspecified; F17.210 Nicotine dependence, cigarettes, uncomplicated; F10.10 Alcohol abuse, uncomplicated; F25.0 Schizoaffective disorder, bipolar type; F41.9 Anxiety disorder, unspecified; F90.9 Attention-deficit hyperactivity disorder, unspecified type; F31.9 Bipolar disorder, unspecified; Z79.899 Other long term (current) drug therapy; Z90.710 Acquired absence of both cervix and uterus; Z90.49 Acquired absence of other specified parts of digestive tract; Z68.27 Body mass index [BMI] 27.0-27.9, adult; Z79.890 Hormone replacement therapy; Y83.8 Other surgical procedures as the cause of abnormal reaction of the patient, or of later complication, without mention of misadventure at the time of the procedure | CPT/HCPCS: 97597; A4456; A4663; A6021 ==

== ENCOUNTER 2018-10-27 09:45 | Outpatient (CLI) | payer MEDICARE, MEDICAID | END 2018-10-27 12:36 | disposition home or self-care (01) | LOC: WOUND CARE 09:45 → EDSTATUS 10:00 → WOUND CARE 12:36 | PROVIDERS: ATTEND Surgery | DX: T81.89XD Other complications of procedures, not elsewhere classified, subsequent encounter (principal); L98.492 Non-pressure chronic ulcer of skin of other sites with fat layer exposed; E03.9 Hypothyroidism, unspecified; E66.01 Morbid (severe) obesity due to excess calories; G89.29 Other chronic pain; J42 Unspecified chronic bronchitis; E78.5 Hyperlipidemia, unspecified; F17.210 Nicotine dependence, cigarettes, uncomplicated; F10.10 Alcohol abuse, uncomplicated; F25.0 Schizoaffective disorder, bipolar type; F41.9 Anxiety disorder, unspecified; F90.9 Attention-deficit hyperactivity disorder, unspecified type; F31.9 Bipolar disorder, unspecified; Z79.899 Other long term (current) drug therapy; Z90.710 Acquired absence of both cervix and uterus; Z90.49 Acquired absence of other specified parts of digestive tract; Z68.27 Body mass index [BMI] 27.0-27.9, adult; Z79.890 Hormone replacement therapy; Y83.8 Other surgical procedures as the cause of abnormal reaction of the patient, or of later complication, without mention of misadventure at the time of the procedure | CPT/HCPCS: 97605; A4663; A6021 ==

== ENCOUNTER 2018-10-31 10:10 | Outpatient (CLI) | payer MEDICARE, MEDICAID ==
[2018-10-31] MEDS ORDERED: LIDOcaine 2% 5ml jelly ONE (10:45)
== END 2018-10-31 12:50 | disposition home or self-care (01) ==
LOC: WOUND CARE 10:10
PROVIDERS: ATTEND Surgery
DX: T81.89XD Other complications of procedures, not elsewhere classified, subsequent encounter (principal); L98.492 Non-pressure chronic ulcer of skin of other sites with fat layer exposed; E03.9 Hypothyroidism, unspecified; E66.01 Morbid (severe) obesity due to excess calories; G89.29 Other chronic pain; J42 Unspecified chronic bronchitis; E78.5 Hyperlipidemia, unspecified; F17.210 Nicotine dependence, cigarettes, uncomplicated; F10.10 Alcohol abuse, uncomplicated; F25.0 Schizoaffective disorder, bipolar type; F41.9 Anxiety disorder, unspecified; F90.9 Attention-deficit hyperactivity disorder, unspecified type; F31.9 Bipolar disorder, unspecified; Z79.899 Other long term (current) drug therapy; Z90.710 Acquired absence of both cervix and uterus; Z90.49 Acquired absence of other specified parts of digestive tract; Z68.27 Body mass index [BMI] 27.0-27.9, adult; Z79.890 Hormone replacement therapy; Y83.8 Other surgical procedures as the cause of abnormal reaction of the patient, or of later complication, without mention of misadventure at the time of the procedure
CPT/HCPCS: 97605; A4456; A4663; A6021

== ENCOUNTER 2018-11-03 10:15 | Day surgery (SDC) | payer MEDICARE, MEDICAID | END 2018-11-03 11:40 | disposition home or self-care (01) | LOC: WOUND CARE 10:15 | PROVIDERS: ATTEND Surgery | DX: T81.89XD Other complications of procedures, not elsewhere classified, subsequent encounter (principal); L98.492 Non-pressure chronic ulcer of skin of other sites with fat layer exposed; E03.9 Hypothyroidism, unspecified; E66.01 Morbid (severe) obesity due to excess calories; G89.29 Other chronic pain; J42 Unspecified chronic bronchitis; E78.5 Hyperlipidemia, unspecified; F17.210 Nicotine dependence, cigarettes, uncomplicated; F10.10 Alcohol abuse, uncomplicated; F25.0 Schizoaffective disorder, bipolar type; F41.9 Anxiety disorder, unspecified; F90.9 Attention-deficit hyperactivity disorder, unspecified type; F31.9 Bipolar disorder, unspecified; Z79.899 Other long term (current) drug therapy; Z90.710 Acquired absence of both cervix and uterus; Z90.49 Acquired absence of other specified parts of digestive tract; Z68.27 Body mass index [BMI] 27.0-27.9, adult; Z79.890 Hormone replacement therapy; Y83.8 Other surgical procedures as the cause of abnormal reaction of the patient, or of later complication, without mention of misadventure at the time of the procedure | CPT/HCPCS: 97597; 97605; A4456; A4663 ==

== ENCOUNTER 2018-11-07 10:25 | Day surgery (SDC) | payer MEDICARE, MEDICAID ==
[~2018-11-07 10:25] MED LIST changes: -LEVO750T21 PO
[2018-11-07] MEDS ORDERED: LIDOcaine 2% 5ml jelly ONE (11:06)
== END 2018-11-07 13:05 | disposition home or self-care (01) ==
LOC: WOUND CARE 10:25
PROVIDERS: ATTEND Surgery
DX: T81.89XD Other complications of procedures, not elsewhere classified, subsequent encounter (principal); L98.492 Non-pressure chronic ulcer of skin of other sites with fat layer exposed; E03.9 Hypothyroidism, unspecified; E66.01 Morbid (severe) obesity due to excess calories; G89.29 Other chronic pain; J42 Unspecified chronic bronchitis; E78.5 Hyperlipidemia, unspecified; F17.210 Nicotine dependence, cigarettes, uncomplicated; F10.10 Alcohol abuse, uncomplicated; F25.0 Schizoaffective disorder, bipolar type; F41.9 Anxiety disorder, unspecified; F90.9 Attention-deficit hyperactivity disorder, unspecified type; F31.9 Bipolar disorder, unspecified; Z79.899 Other long term (current) drug therapy; Z90.710 Acquired absence of both cervix and uterus; Z90.49 Acquired absence of other specified parts of digestive tract; Z68.27 Body mass index [BMI] 27.0-27.9, adult; Z79.890 Hormone replacement therapy; Y83.8 Other surgical procedures as the cause of abnormal reaction of the patient, or of later complication, without mention of misadventure at the time of the procedure
CPT/HCPCS: 97597; A4456; A4663; A6234

== ENCOUNTER 2018-11-10 10:55 | Day surgery (SDC) | payer MEDICARE, MEDICAID ==
[2018-11-10] MEDS ORDERED: LIDOcaine 2% 5ml jelly ONE (11:31)
== END 2018-11-10 13:20 | disposition home or self-care (01) ==
LOC: WOUND CARE 10:55
PROVIDERS: ATTEND Surgery
DX: T81.89XD Other complications of procedures, not elsewhere classified, subsequent encounter (principal); L98.492 Non-pressure chronic ulcer of skin of other sites with fat layer exposed; E03.9 Hypothyroidism, unspecified; E66.01 Morbid (severe) obesity due to excess calories; G89.29 Other chronic pain; J42 Unspecified chronic bronchitis; E78.5 Hyperlipidemia, unspecified; F17.210 Nicotine dependence, cigarettes, uncomplicated; F10.10 Alcohol abuse, uncomplicated; F25.0 Schizoaffective disorder, bipolar type; F41.9 Anxiety disorder, unspecified; F90.9 Attention-deficit hyperactivity disorder, unspecified type; F31.9 Bipolar disorder, unspecified; Z79.899 Other long term (current) drug therapy; Z90.710 Acquired absence of both cervix and uterus; Z90.49 Acquired absence of other specified parts of digestive tract; Z68.27 Body mass index [BMI] 27.0-27.9, adult; Z79.890 Hormone replacement therapy; Y83.8 Other surgical procedures as the cause of abnormal reaction of the patient, or of later complication, without mention of misadventure at the time of the procedure
CPT/HCPCS: 97597; A6209; A4663; A6021; A6154; A6234; A6250

== ENCOUNTER 2018-11-14 10:40 | Day surgery (SDC) | payer MEDICARE, MEDICAID | END 2018-11-14 13:05 | disposition home or self-care (01) | LOC: WOUND CARE 10:40 | PROVIDERS: ATTEND Surgery | DX: T81.89XD Other complications of procedures, not elsewhere classified, subsequent encounter (principal); L98.492 Non-pressure chronic ulcer of skin of other sites with fat layer exposed; E03.9 Hypothyroidism, unspecified; E66.01 Morbid (severe) obesity due to excess calories; G89.29 Other chronic pain; J42 Unspecified chronic bronchitis; E78.5 Hyperlipidemia, unspecified; F17.210 Nicotine dependence, cigarettes, uncomplicated; F10.10 Alcohol abuse, uncomplicated; F25.0 Schizoaffective disorder, bipolar type; F41.9 Anxiety disorder, unspecified; F90.9 Attention-deficit hyperactivity disorder, unspecified type; F31.9 Bipolar disorder, unspecified; Z79.899 Other long term (current) drug therapy; Z90.710 Acquired absence of both cervix and uterus; Z90.49 Acquired absence of other specified parts of digestive tract; Z68.27 Body mass index [BMI] 27.0-27.9, adult; Z79.890 Hormone replacement therapy; Y83.8 Other surgical procedures as the cause of abnormal reaction of the patient, or of later complication, without mention of misadventure at the time of the procedure | CPT/HCPCS: 97597; A6209; A4456; A4663; A6250 ==

== ENCOUNTER 2018-11-17 10:20 | Day surgery (SDC) | payer MEDICARE, MEDICAID ==
[2018-11-17] MEDS ORDERED: LIDOcaine 2% 5ml jelly ONE (11:33)
== END 2018-11-17 12:54 | disposition home or self-care (01) ==
LOC: WOUND CARE 10:20
PROVIDERS: ATTEND Surgery
DX: T81.89XD Other complications of procedures, not elsewhere classified, subsequent encounter (principal); L98.492 Non-pressure chronic ulcer of skin of other sites with fat layer exposed; E03.9 Hypothyroidism, unspecified; E66.01 Morbid (severe) obesity due to excess calories; G89.29 Other chronic pain; J42 Unspecified chronic bronchitis; E78.5 Hyperlipidemia, unspecified; F17.210 Nicotine dependence, cigarettes, uncomplicated; F10.10 Alcohol abuse, uncomplicated; F25.0 Schizoaffective disorder, bipolar type; F41.9 Anxiety disorder, unspecified; F90.9 Attention-deficit hyperactivity disorder, unspecified type; F31.9 Bipolar disorder, unspecified; Z79.899 Other long term (current) drug therapy; Z90.710 Acquired absence of both cervix and uterus; Z90.49 Acquired absence of other specified parts of digestive tract; Z68.27 Body mass index [BMI] 27.0-27.9, adult; Z79.890 Hormone replacement therapy; Y83.8 Other surgical procedures as the cause of abnormal reaction of the patient, or of later complication, without mention of misadventure at the time of the procedure
CPT/HCPCS: 97597; A6209; A4663; A6021; A6154; A6234; A6250

== ENCOUNTER 2018-11-21 10:35 | Outpatient (CLI) | payer MEDICARE, MEDICAID ==
[2019-01-01] MEDS ORDERED: ORLI120C22 PO (11:37)
[2019-01-01] MEDS ORDERED: DICL50TA8 PO (11:37)
[2019-01-01] MEDS ORDERED: BACL10TA2 PO (11:37)
[2019-01-01] MEDS ORDERED: ACYC400T PO (11:37)
== END 2018-11-21 12:23 | disposition home or self-care (01) ==
LOC: WOUND CARE 10:35
PROVIDERS: ATTEND Surgery
DX: T81.89XD Other complications of procedures, not elsewhere classified, subsequent encounter (principal); L98.492 Non-pressure chronic ulcer of skin of other sites with fat layer exposed; E03.9 Hypothyroidism, unspecified; E66.01 Morbid (severe) obesity due to excess calories; G89.29 Other chronic pain; J42 Unspecified chronic bronchitis; E78.5 Hyperlipidemia, unspecified; F17.210 Nicotine dependence, cigarettes, uncomplicated; F10.10 Alcohol abuse, uncomplicated; F25.0 Schizoaffective disorder, bipolar type; F41.9 Anxiety disorder, unspecified; F90.9 Attention-deficit hyperactivity disorder, unspecified type; F31.9 Bipolar disorder, unspecified; Z79.899 Other long term (current) drug therapy; Z90.710 Acquired absence of both cervix and uterus; Z90.49 Acquired absence of other specified parts of digestive tract; Z68.27 Body mass index [BMI] 27.0-27.9, adult; Z79.890 Hormone replacement therapy; Y83.8 Other surgical procedures as the cause of abnormal reaction of the patient, or of later complication, without mention of misadventure at the time of the procedure
CPT/HCPCS: 97605; A4663

== ENCOUNTER 2018-11-24 10:19 | Outpatient (CLI) | payer MEDICARE, MEDICAID | END 2018-11-24 12:19 | disposition home or self-care (01) | LOC: WOUND CARE 10:19 → EDSTATUS 10:30 → WOUND CARE 12:19 | PROVIDERS: ATTEND Surgery | DX: T81.89XD Other complications of procedures, not elsewhere classified, subsequent encounter (principal); L98.492 Non-pressure chronic ulcer of skin of other sites with fat layer exposed; E03.9 Hypothyroidism, unspecified; E66.01 Morbid (severe) obesity due to excess calories; G89.29 Other chronic pain; J42 Unspecified chronic bronchitis; E78.5 Hyperlipidemia, unspecified; F17.210 Nicotine dependence, cigarettes, uncomplicated; F10.10 Alcohol abuse, uncomplicated; F25.0 Schizoaffective disorder, bipolar type; F41.9 Anxiety disorder, unspecified; F90.9 Attention-deficit hyperactivity disorder, unspecified type; F31.9 Bipolar disorder, unspecified; Z79.899 Other long term (current) drug therapy; Z90.710 Acquired absence of both cervix and uterus; Z90.49 Acquired absence of other specified parts of digestive tract; Z68.27 Body mass index [BMI] 27.0-27.9, adult; Z79.890 Hormone replacement therapy; Y83.8 Other surgical procedures as the cause of abnormal reaction of the patient, or of later complication, without mention of misadventure at the time of the procedure | CPT/HCPCS: 97605; A4663; A6250 ==

== ENCOUNTER 2018-11-28 11:05 | Day surgery (SDC) | payer MEDICARE, MEDICAID ==
[2018-11-28] MEDS ORDERED: LIDOcaine 2% 5ml jelly ONE (11:52)
[2019-01-01] MEDS ORDERED: DICL50TA8 PO (11:37)
[2019-01-01] MEDS ORDERED: ORLI120C22 PO (11:37)
[2019-01-01] MEDS ORDERED: ACYC400T PO (11:37)
[2019-01-01] MEDS ORDERED: BACL10TA2 PO (11:37)
== END 2018-11-28 12:45 | disposition home or self-care (01) ==
LOC: WOUND CARE 11:05
PROVIDERS: ATTEND Surgery
DX: T81.89XD Other complications of procedures, not elsewhere classified, subsequent encounter (principal); L98.492 Non-pressure chronic ulcer of skin of other sites with fat layer exposed; E03.9 Hypothyroidism, unspecified; E66.01 Morbid (severe) obesity due to excess calories; G89.29 Other chronic pain; J42 Unspecified chronic bronchitis; E78.5 Hyperlipidemia, unspecified; F17.210 Nicotine dependence, cigarettes, uncomplicated; F10.10 Alcohol abuse, uncomplicated; F25.0 Schizoaffective disorder, bipolar type; F41.9 Anxiety disorder, unspecified; F90.9 Attention-deficit hyperactivity disorder, unspecified type; F31.9 Bipolar disorder, unspecified; Z79.899 Other long term (current) drug therapy; Z90.710 Acquired absence of both cervix and uterus; Z90.49 Acquired absence of other specified parts of digestive tract; Z68.27 Body mass index [BMI] 27.0-27.9, adult; Z79.890 Hormone replacement therapy; Y83.8 Other surgical procedures as the cause of abnormal reaction of the patient, or of later complication, without mention of misadventure at the time of the procedure
CPT/HCPCS: 97605; A4456; A4663; A6021; A6212

== ENCOUNTER 2018-12-01 11:01 | Outpatient (CLI) | payer MEDICARE, MEDICAID ==
[2019-01-01] MEDS ORDERED: ACYC400T PO (11:37)
[2019-01-01] MEDS ORDERED: BACL10TA2 PO (11:37)
[2019-01-01] MEDS ORDERED: ORLI120C22 PO (11:37)
[2019-01-01] MEDS ORDERED: DICL50TA8 PO (11:37)
== END 2018-12-01 12:50 | disposition home or self-care (01) ==
LOC: WOUND CARE 11:01
PROVIDERS: ATTEND Surgery
DX: T81.89XD Other complications of procedures, not elsewhere classified, subsequent encounter (principal); L98.492 Non-pressure chronic ulcer of skin of other sites with fat layer exposed; E03.9 Hypothyroidism, unspecified; E66.01 Morbid (severe) obesity due to excess calories; G89.29 Other chronic pain; J42 Unspecified chronic bronchitis; E78.5 Hyperlipidemia, unspecified; F17.210 Nicotine dependence, cigarettes, uncomplicated; F10.10 Alcohol abuse, uncomplicated; F25.0 Schizoaffective disorder, bipolar type; F41.9 Anxiety disorder, unspecified; F90.9 Attention-deficit hyperactivity disorder, unspecified type; F31.9 Bipolar disorder, unspecified; Z79.899 Other long term (current) drug therapy; Z90.710 Acquired absence of both cervix and uterus; Z90.49 Acquired absence of other specified parts of digestive tract; Z68.27 Body mass index [BMI] 27.0-27.9, adult; Z79.890 Hormone replacement therapy; Y83.8 Other surgical procedures as the cause of abnormal reaction of the patient, or of later complication, without mention of misadventure at the time of the procedure
CPT/HCPCS: 97605; A4663; A6234; A6250

== ENCOUNTER 2018-12-05 10:02 | Day surgery (SDC) | payer MEDICARE, MEDICAID ==
[2019-01-01] MEDS ORDERED: DICL50TA8 PO (11:37)
[2019-01-01] MEDS ORDERED: ACYC400T PO (11:37)
[2019-01-01] MEDS ORDERED: ORLI120C22 PO (11:37)
[2019-01-01] MEDS ORDERED: BACL10TA2 PO (11:37)
== END 2018-12-05 12:45 | disposition home or self-care (01) ==
LOC: WOUND CARE 10:02 → EDSTATUS 11:00 → WOUND CARE 12:45
PROVIDERS: ATTEND Surgery
DX: T81.89XD Other complications of procedures, not elsewhere classified, subsequent encounter (principal); L98.492 Non-pressure chronic ulcer of skin of other sites with fat layer exposed; E03.9 Hypothyroidism, unspecified; E66.01 Morbid (severe) obesity due to excess calories; G89.29 Other chronic pain; J42 Unspecified chronic bronchitis; E78.5 Hyperlipidemia, unspecified; F17.210 Nicotine dependence, cigarettes, uncomplicated; F10.10 Alcohol abuse, uncomplicated; F25.0 Schizoaffective disorder, bipolar type; F41.9 Anxiety disorder, unspecified; F90.9 Attention-deficit hyperactivity disorder, unspecified type; F31.9 Bipolar disorder, unspecified; Z79.899 Other long term (current) drug therapy; Z90.710 Acquired absence of both cervix and uterus; Z90.49 Acquired absence of other specified parts of digestive tract; Z68.27 Body mass index [BMI] 27.0-27.9, adult; Z79.890 Hormone replacement therapy; Y83.8 Other surgical procedures as the cause of abnormal reaction of the patient, or of later complication, without mention of misadventure at the time of the procedure
CPT/HCPCS: 97597; A6266; A4663; A6212; A6243

== ENCOUNTER 2018-12-08 10:28 | Day surgery (SDC) | payer MEDICARE, MEDICAID ==
[2018-12-08] MEDS ORDERED: LIDOcaine 2% 5ml jelly ONE (11:21)
== END 2018-12-08 12:03 | disposition home or self-care (01) ==
LOC: WOUND CARE 10:28
PROVIDERS: ATTEND Surgery
DX: T81.89XD Other complications of procedures, not elsewhere classified, subsequent encounter (principal); L98.492 Non-pressure chronic ulcer of skin of other sites with fat layer exposed; E03.9 Hypothyroidism, unspecified; E66.01 Morbid (severe) obesity due to excess calories; G89.29 Other chronic pain; J42 Unspecified chronic bronchitis; E78.5 Hyperlipidemia, unspecified; F17.210 Nicotine dependence, cigarettes, uncomplicated; F10.10 Alcohol abuse, uncomplicated; F25.0 Schizoaffective disorder, bipolar type; F41.9 Anxiety disorder, unspecified; F90.9 Attention-deficit hyperactivity disorder, unspecified type; F31.9 Bipolar disorder, unspecified; Z79.899 Other long term (current) drug therapy; Z90.710 Acquired absence of both cervix and uterus; Z90.49 Acquired absence of other specified parts of digestive tract; Z68.27 Body mass index [BMI] 27.0-27.9, adult; Z79.890 Hormone replacement therapy; Y83.8 Other surgical procedures as the cause of abnormal reaction of the patient, or of later complication, without mention of misadventure at the time of the procedure
CPT/HCPCS: 97597; A4663; A6021; A6154; A6243

== ENCOUNTER 2018-12-12 10:35 | Day surgery (SDC) | payer MEDICARE, MEDICAID ==
[2018-12-12] MEDS ORDERED: LIDOcaine 2% 5ml jelly ONE (10:45)
== END 2018-12-12 11:35 | disposition home or self-care (01) ==
LOC: WOUND CARE 10:35
PROVIDERS: ATTEND Surgery
DX: T81.89XD Other complications of procedures, not elsewhere classified, subsequent encounter (principal); L98.492 Non-pressure chronic ulcer of skin of other sites with fat layer exposed; E03.9 Hypothyroidism, unspecified; E66.01 Morbid (severe) obesity due to excess calories; G89.29 Other chronic pain; J42 Unspecified chronic bronchitis; E78.5 Hyperlipidemia, unspecified; F17.210 Nicotine dependence, cigarettes, uncomplicated; F10.10 Alcohol abuse, uncomplicated; F25.0 Schizoaffective disorder, bipolar type; F41.9 Anxiety disorder, unspecified; F90.9 Attention-deficit hyperactivity disorder, unspecified type; F31.9 Bipolar disorder, unspecified; Z79.899 Other long term (current) drug therapy; Z90.710 Acquired absence of both cervix and uterus; Z90.49 Acquired absence of other specified parts of digestive tract; Z68.27 Body mass index [BMI] 27.0-27.9, adult; Z79.890 Hormone replacement therapy; Y83.8 Other surgical procedures as the cause of abnormal reaction of the patient, or of later complication, without mention of misadventure at the time of the procedure
CPT/HCPCS: 97597; A4663; A6021; A6154; A6213; A6234

== ENCOUNTER 2018-12-19 10:53 | Day surgery (SDC) | payer MEDICARE, MEDICAID ==
[2018-12-19] MEDS ORDERED: LIDOcaine 2% 5ml jelly ONE (12:06)
[2019-01-01] MEDS ORDERED: BACL10TA2 PO (11:37)
[2019-01-01] MEDS ORDERED: DICL50TA8 PO (11:37)
[2019-01-01] MEDS ORDERED: ORLI120C22 PO (11:37)
[2019-01-01] MEDS ORDERED: ACYC400T PO (11:37)
== END 2018-12-19 12:57 | disposition home or self-care (01) ==
LOC: WOUND CARE 10:53
PROVIDERS: ATTEND Surgery
DX: T81.89XD Other complications of procedures, not elsewhere classified, subsequent encounter (principal); L98.492 Non-pressure chronic ulcer of skin of other sites with fat layer exposed; E03.9 Hypothyroidism, unspecified; E66.01 Morbid (severe) obesity due to excess calories; G89.29 Other chronic pain; J42 Unspecified chronic bronchitis; E78.5 Hyperlipidemia, unspecified; F17.210 Nicotine dependence, cigarettes, uncomplicated; F10.10 Alcohol abuse, uncomplicated; F25.0 Schizoaffective disorder, bipolar type; F41.9 Anxiety disorder, unspecified; F90.9 Attention-deficit hyperactivity disorder, unspecified type; F31.9 Bipolar disorder, unspecified; Z79.899 Other long term (current) drug therapy; Z90.710 Acquired absence of both cervix and uterus; Z90.49 Acquired absence of other specified parts of digestive tract; Z68.27 Body mass index [BMI] 27.0-27.9, adult; Z79.890 Hormone replacement therapy; Y83.8 Other surgical procedures as the cause of abnormal reaction of the patient, or of later complication, without mention of misadventure at the time of the procedure
CPT/HCPCS: A4663; A6021; A6154; A6212

== ENCOUNTER 2018-12-26 09:20 | Day surgery (SDC) | payer MEDICARE, MEDICAID ==
[2018-12-26] MEDS ORDERED: LIDOcaine 2% 5ml jelly ONE (09:36)
[2019-01-01] MEDS ORDERED: ACYC400T PO (11:37)
[2019-01-01] MEDS ORDERED: ORLI120C22 PO (11:37)
[2019-01-01] MEDS ORDERED: DICL50TA8 PO (11:37)
[2019-01-01] MEDS ORDERED: BACL10TA2 PO (11:37)
== END 2018-12-26 10:45 | disposition home or self-care (01) ==
LOC: WOUND CARE 09:20
PROVIDERS: ATTEND Surgery
DX: T81.89XD Other complications of procedures, not elsewhere classified, subsequent encounter (principal); L98.492 Non-pressure chronic ulcer of skin of other sites with fat layer exposed; E03.9 Hypothyroidism, unspecified; E66.01 Morbid (severe) obesity due to excess calories; G89.29 Other chronic pain; J42 Unspecified chronic bronchitis; E78.5 Hyperlipidemia, unspecified; F17.210 Nicotine dependence, cigarettes, uncomplicated; F10.10 Alcohol abuse, uncomplicated; F25.0 Schizoaffective disorder, bipolar type; F41.9 Anxiety disorder, unspecified; F90.9 Attention-deficit hyperactivity disorder, unspecified type; F31.9 Bipolar disorder, unspecified; Z79.899 Other long term (current) drug therapy; Z90.710 Acquired absence of both cervix and uterus; Z90.49 Acquired absence of other specified parts of digestive tract; Z68.27 Body mass index [BMI] 27.0-27.9, adult; Z79.890 Hormone replacement therapy; Y83.8 Other surgical procedures as the cause of abnormal reaction of the patient, or of later complication, without mention of misadventure at the time of the procedure
CPT/HCPCS: A4663; A6021; A6154; A6212

== ENCOUNTER 2019-01-03 10:44 | Inpatient (IN) | payer MEDICARE, MEDICAID ==
[2019-01-01 12:19] LABS: CLARITY,URINE CLEAR (Clear); COLOR,URINE YELLOW (Yellow); GLUCOSE, URINE NEGATIVE (Neg); KETONES,URINE NEGATIVE (Neg); LEUKOCYTE ESTERASE ,URINE NEGATIVE (Neg); NITRITES, URINE NEGATIVE (Neg); OCCULT BLOOD,URINE SMALL (Neg); PROTEIN,URINE NEGATIVE (Neg); UROBILINOGEN,URINE 0.2 E.U/dL (0.2-1.0)
[2019-01-01 12:20] LABS: BASOPHILS # (AUTO) 0.1 X10'3 (0-0.2); BASOPHILS % (AUTO) 0.6 % (0-1); EOSINOPHILS # (AUTO) 0.5 X10'3 (0-0.9); EOSINOPHILS % (AUTO) 4.5 % (0-6); LYMPHOCYTES # (AUTO) 3.1 X10'3 (1.1-4.8); MEAN CORPUSCULAR HEMOGLOBIN 30.3 PG (27.0-31.0); MEAN CORPUSCULAR HGB CONC 34.3 g/dL (33.0-36.5); MEAN CORPUSCULAR VOLUME 88.2 FL (78-98); MEAN PLATELET VOLUME 8.5 FL (7.4-10.4); MONOCYTES # (AUTO) 0.6 X10'3 (0-0.9); MONOCYTES % (AUTO) 6.2 % (2-12); NEUTROPHILS # (AUTO) 6.1 X10'3 (1.8-7.7); NEUTROPHILS % (AUTO) 58.7 % (42-75); PRE OP HEMATOCRIT 40.2 % (35.0-45.0); PRE OP HEMOGLOBIN 13.8 g/dL (12.0-16.0); PRE OP PLATELET COUNT 186 X10'3 (140-440); RED BLOOD COUNT 4.56 X10'6 (4.20-5.60); RED CELL DISTRIBUTION WIDTH 14.4 % (11.5-14.5)
[2019-01-01 12:26] LABS: UA COLLECTION TYPE CLN CATCH MIDSTREAM
[2019-01-01 12:27] LABS: SQUAMOUS EPITHELIAL CELL,UR MODERATE /LPF (FEW)
[2019-01-01 12:28] LABS: BACTERIA,URINE FEW /HPF (Neg); CAL OXALATE CRYSTALS FEW /HPF (NEGATIVE); WBC,URINE 0-4 /HPF (0-4)
[2019-01-01 12:43] LABS: ALBUMIN 3.6 G/DL (3.4-5.0); ALBUMIN/GLOBULIN RATIO 1.1 (1.1-1.5); ALKALINE PHOSPHATASE 121 IU/L (46-116); BLOOD UREA NITROGEN 23 MG/DL (7-18); BUN/CREATININE RATIO 26.7 (6.6-38.0); CALCIUM 7.9 MG/DL (8.5-10.1); CHLORIDE 107 MMOL/L (99-107); CREATININE 0.86 MG/DL (0.40-0.90); PRE OP ALT 48 U/L (30-65); PRE OP ANION GAP 10 (8-16); PRE OP AST 29 U/L (10-37); PRE OP BILIRUB, TOTAL 0.2 MG/DL (0.0-1.0); PRE OP GLUCOSE 104 MG/DL (70-104); PRE OP POTASSIUM 3.5 MMOL/L (3.4-5.1); PRE OP SODIUM 140 MMOL/L (135-145); TOTAL CARBON DIOXIDE 23.3 MMOL/L (24-32); eGFR 69 ML/MIN
[~2019-01-03] VITALS: Ht 165.1 cm; Wt 76.0 kg
[~2019-01-03 10:44] MED LIST changes: +ACYC400T PO; +BACL10TA2 PO; +DICL50TA8 PO; -LACT1CAP26 PO; -NICO-687 TD; +ORLI120C22 PO; -OXYC-150 PO; +cefazolin/dext.iso 2gm/50ml 50 ML IV ONE; +famotidine 20mg tablet PO ONE
[2019-01-03 10:55] VITALS: BP 118/75
[2019-01-03] MEDS: ringers solution, lacted 1,000 ML IV SCH ×2 (11:47→21:31)
[2019-01-03] MEDS ORDERED: albuterol 2.5 MG/3 ML nebule NEB ONE (12:55)
[2019-01-03] MEDS ORDERED: nicotine 21mg patch - 24 hr TD ONE (14:55)
[2019-01-03] MEDS ORDERED: ceFAZolin 1000mg inj ONE (17:19)
[2019-01-03] MEDS ORDERED: BUPIVAcaine/PF 2.5 mg/ml (0.25%) 30ml vial ONE (17:19)
[2019-01-03] MEDS ORDERED: bacitracin 15gm ointment TP ONE (17:19)
[2019-01-03] MEDS ORDERED: furosemide 20MG tablet PO PRN (21:15)
[2019-01-03] MEDS ORDERED: acyclovir 200 MG capsule PO PRN (21:15)
--- NOTE | 2019-01-03 21:45 | NUR ---
Pt arrived to the surgical unit via gurney. No report was received. master at arms provided me with admission print out and is calling Dr. Dominguez for medical recon. Patient states that she was scheduled to have a hernia repair surgery today but was postponed for tomorrow, 01/04/19. Pt is A & O X4, denies, CP, SOB, dizziness, n/v, and rated pain 3/10. Her VS were as follow: Temp: 97.9, BP: 137/65, HR: 64, SPO2: 96 (RA), RR 16.
--- NOTE | 2019-01-03 23:40 | NUR ---
DART: MRSA 2-RN Skin Assessment Data Architect Screening Malnutrition Risk Readmission Screening
[2019-01-04] VITALS (16 sets, daily range): BP systolic 113–150; BP diastolic 50–87
[2019-01-04] MEDS: ringers solution, lacted 1,000 ML IV SCH ×3 (03:41→14:15)
--- NOTE | 2019-01-04 06:10 | NUR ---
Problems reprioritized. Patient report given, questions answered & plan of care reviewed with BRENNA Louie. Patient stable at shift change
[2019-01-04] MEDS: gabapentin 300mg capsule PO SCH ×2 (07:42→21:12)
[2019-01-04] MEDS: carbidopa/levodopa 50/200mg CR tablet PO SCH ×2 (07:42→20:00)
[2019-01-04] MEDS: oxybutynin 5mg tablet PO SCH ×2 (07:42→21:12)
[2019-01-04] MEDS: sertraline 50mg tablet PO SCH (07:42)
[2019-01-04] MEDS: levoTHYROXINE 112mcg tablet PO SCH (07:42)
[2019-01-04] MEDS ORDERED: baclofen 10mg tablet PO PRN (08:00)
[2019-01-04] MEDS: AMPHETAMINE PO SCH (08:00)
[2019-01-04] MEDS: [UNRECOGNIZED DRUG - OTHER] PO SCH (08:00)
[2019-01-04] MEDS: Diclofenac Sodium 50 MG PO SCH (08:00)
[2019-01-04] MEDS: ORLISTAT PO SCH (08:00)
[2019-01-04] MEDS: BUPROPION 450 MG PO SCH (08:00)
[2019-01-04] MEDS: DEXTROAMPHETAMINE PO SCH (08:00)
[2019-01-04] MEDS: famotidine/PF 10 mg/ml inj IV PRN ×2 (10:15→22:54)
[2019-01-04] MEDS ORDERED: ceFAZolin 1000mg inj ONE (16:24)
[2019-01-04] MEDS ORDERED: bacitracin 15gm ointment TP ONE (16:24)
[2019-01-04] MEDS ORDERED: sevoflurane 250ml liquid IH ONE (18:18)
[2019-01-04] MEDS ORDERED: fentaNYL /PF 50mcg/ml 5ml ampule ONE (18:25)
[2019-01-04] MEDS ORDERED: midazolam 2 mg/2 ml injection ONE (18:25)
[2019-01-04] MEDS ORDERED: propofol inj 20 ML IV ONE (18:27)
--- NOTE | 2019-01-04 18:33 | NUR ---
Problems reprioritized. Patient report given, questions answered & plan of care reviewed with BRENNA CAPPS.
[2019-01-04] MEDS ORDERED: ringers solution, lacted 1,000 ML IV SCH (18:56)
[2019-01-04] MEDS ORDERED: proCHLORperazine 10 MG/2 ml inj IV PRN (19:00)
[2019-01-04] MEDS ORDERED: ondansetron/PF 4mg/2ml inj IV PRN (19:00)
[2019-01-04] MEDS ORDERED: meperidine/PF 25mg/ml syringe IV PRN ×2 (19:00)
[2019-01-04] MEDS ORDERED: morphine 4 MG/ML inj SYRINge IV PRN ×2 (19:00)
[2019-01-04] MEDS ORDERED: BUPIVAcaine/PF 2.5 mg/ml (0.25%) 30ml vial ONE (19:25)
[2019-01-04] MEDS ORDERED: BUPIVAcaine/PF 2.5mg/ml (0.25%) 10ml vial ONE (19:25)
[2019-01-04] MEDS ORDERED: rocuronium 10mg/ml inj IV ONE (19:30)
[2019-01-04] MEDS ORDERED: neostigmine methylsulfate 1 MG/ML 10ml vial ONE (19:31)
[2019-01-04] MEDS ORDERED: glycopyrrolate 0.2mg/ml inj ONE (19:31)
--- NOTE | 2019-01-04 19:42 | NUR ---
Received from OR via , accompanied by Anesthesiologist DR NAQVI and report given by Anesthesiolgist. AWAKENS TO VOICE. VITALS STABLE. DRESSING DI. GLORIA PAIN. BRUNO WITH DM AMNT SERO SANG IN BULB.
[2019-01-04] MEDS: meperidine/PF 25mg/ml syringe IV PRN ×2 (19:54→20:06)
--- NOTE | 2019-01-04 20:17 | NUR ---
report called from BRENNA Bermudez. awaiting pt arrival to unit
--- NOTE | 2019-01-04 20:22 | NUR ---
Report called to receiving nurse. Transferred via BED Belongings . Special Issues communicated to receiving nurse. AWAKE AND ORIENTED. VITALS STABLE. DRESSING DI. STATES PAIN IMPROVING. TO SURGICAL RM 344A AT THIS TIME.
[2019-01-04] MEDS ORDERED: clozapine 100mg tablet PO SCH (21:00)
[2019-01-04] MEDS: atorvastatin 20mg tablet PO SCH (21:12)
[2019-01-04] MEDS ORDERED: HYDROmorphone/NS 1 mg/ml CADD 50 ML IV SCH (21:35)
[2019-01-04] MEDS ORDERED: nicotine 21mg patch - 24 hr TD ONE (21:35)
[2019-01-04] MEDS ORDERED: CADD PCA waste documentation MC SCH (21:40)
[2019-01-04] MEDS ORDERED: naloxone 0.4 mg/ml inj IV PRN ×2 (21:40)
[2019-01-04] MEDS ORDERED: CADD PCA waste documentation MC PRN (21:40)
[2019-01-04] MEDS: HYDROmorphone/NS 1 mg/ml CADD 50 ML IV SCH ×2 (22:39→23:00)
[2019-01-05 00:15] VITALS: BP 126/71
[2019-01-05 00:30] VITALS: BP 130/20
[2019-01-05] MEDS: HYDROmorphone/NS 1 mg/ml CADD 50 ML IV SCH ×12 (01:00→23:00)
[2019-01-05] MEDS: ringers solution, lacted 1,000 ML IV SCH ×3 (03:37→23:24)
[2019-01-05 04:00] VITALS: BP 124/72
--- NOTE | 2019-01-05 05:10 | NUR ---
pt refusing to ambulate this AM. Educated on importance of early ambulation post surgery
--- NOTE | 2019-01-05 06:22 | NUR ---
REPORT GIVEN TO kayla Baca
--- NOTE | 2019-01-05 06:33 | NUR ---
Patient in room [facility]. I have received report from BRENNA Weiss and had the opportunity to ask questions and assume patient care.
[2019-01-05] MEDS: levoTHYROXINE 112mcg tablet PO SCH (08:00)
[2019-01-05] MEDS: docusate sod 100mg capsule PO SCH ×2 (08:00→20:00)
[2019-01-05] MEDS: DEXTROAMPHETAMINE PO SCH (08:00)
[2019-01-05] MEDS: AMPHETAMINE PO SCH (08:00)
[2019-01-05] MEDS: [UNRECOGNIZED DRUG - OTHER] PO SCH (08:00)
[2019-01-05] MEDS: carbidopa/levodopa 50/200mg CR tablet PO SCH ×2 (08:00→20:00)
[2019-01-05] MEDS: BUPROPION 450 MG PO SCH (08:00)
[2019-01-05] MEDS: oxybutynin 5mg tablet PO SCH ×2 (08:00→20:00)
[2019-01-05] MEDS: ORLISTAT PO SCH (08:00)
[2019-01-05] MEDS: gabapentin 300mg capsule PO SCH ×2 (08:00→21:19)
[2019-01-05] MEDS ORDERED: docusate sod 100mg capsule PO SCH (08:00)
[2019-01-05] MEDS: Diclofenac Sodium 50 MG PO SCH (08:00)
[2019-01-05] MEDS: sertraline 50mg tablet PO SCH (08:00)
[2019-01-05] MEDS: nicotine 21mg patch - 24 hr TD SCH (08:21)
[2019-01-05 10:34] VITALS: BP 124/64
[2019-01-05 11:00] VITALS: BP 117/47
[2019-01-05] MEDS ORDERED: CLOZAPINE 100 MG TAB.RAPDIS PO SCH ×2 (14:30→14:31)
[2019-01-05 18:00] VITALS: BP 115/61
[2019-01-05] MEDS: ondansetron/PF 4mg/2ml inj IV PRN (19:49)
[2019-01-05] MEDS: atorvastatin 20mg tablet PO SCH (21:19)
[2019-01-05] MEDS: diphenhydrAMINE 25mg capsule PO PRN (22:36)
[2019-01-06] VITALS: BP 119/60
[2019-01-06] MEDS: HYDROmorphone/NS 1 mg/ml CADD 50 ML IV SCH ×12 (01:00→23:00)
--- NOTE | 2019-01-06 06:10 | NUR ---
Patient in room [facility]. I have received report from BRENNA Weiss and had the opportunity to ask questions and assume patient care.
[2019-01-06 06:30] VITALS: BP 107/53
--- NOTE | 2019-01-06 06:44 | NUR ---
report given to BRENNA Orosco
[2019-01-06 07:21] LABS: ALANINE AMINOTRANSFERASE 30 U/L (12-78); ALBUMIN 2.9 G/DL (3.4-5.0); ALBUMIN/GLOBULIN RATIO 0.9 (1.1-1.5); ALKALINE PHOSPHATASE 69 IU/L (46-116); ANION GAP 10 (8-16); ASPARTATE AMINO TRANSFERASE 18 U/L (10-37); BILIRUBIN,TOTAL 0.6 MG/DL (0.1-1.0); BLOOD UREA NITROGEN 9 MG/DL (7-18); BUN/CREATININE RATIO 12.2 (6.6-38.0); CALCIUM 8.2 MG/DL (8.5-10.1); CHLORIDE 103 MMOL/L (99-107); CREATININE 0.74 MG/DL (0.40-0.90); GLUCOSE 89 MG/DL (70-104); MAGNESIUM 1.4 MG/DL (1.5-2.4); POTASSIUM 3.7 MMOL/L (3.5-5.1); SODIUM 138 MMOL/L (135-145); TOTAL CARBON DIOXIDE 25.3 MMOL/L (24-32); TOTAL PROTEIN 6.1 G/DL (6.4-8.2); eGFR 82 ML/MIN
[2019-01-06] MEDS ORDERED: magnesium 2GM in 50ml NS 50 ML IV PRN (07:30)
[2019-01-06] MEDS ORDERED: magnesium 4gm in 100ml NS 100 ML IV PRN (07:30)
[2019-01-06] MEDS ORDERED: potassium CL 10mEq/100ml bag 100 ML IV PRN (07:30)
[2019-01-06] MEDS ORDERED: potassium Cl 20 mEq SR tablet PO PRN ×2 (07:30)
[2019-01-06] MEDS: Diclofenac Sodium 50 MG PO SCH (08:00)
[2019-01-06] MEDS: BUPROPION 450 MG PO SCH (08:00)
[2019-01-06] MEDS: AMPHETAMINE PO SCH (08:00)
[2019-01-06] MEDS: [UNRECOGNIZED DRUG - OTHER] PO SCH (08:00)
[2019-01-06] MEDS: ORLISTAT PO SCH (08:00)
[2019-01-06] MEDS: carbidopa/levodopa 50/200mg CR tablet PO SCH ×2 (08:00→19:15)
[2019-01-06] MEDS: DEXTROAMPHETAMINE PO SCH (08:00)
[2019-01-06 08:09] LABS: BASOPHILS % (AUTO) 0.3 % (0-1); EOSINOPHILS # (AUTO) 0.5 X10'3 (0-0.9); EOSINOPHILS % (AUTO) 6.3 % (0-6); HEMATOCRIT 38.8 % (35.0-45.0); HEMOGLOBIN 13.4 g/dl (12.0-16.0); LYMPHOCYTES # (AUTO) 1.8 X10'3 (1.1-4.8); LYMPHOCYTES % (AUTO) 22.1 % (21-51); MEAN CORPUSCULAR HEMOGLOBIN 30.1 PG (27.0-31.0); MEAN CORPUSCULAR HGB CONC 34.5 g/dL (33.0-36.5); MEAN CORPUSCULAR VOLUME 87.3 FL (78-98); MEAN PLATELET VOLUME 8.6 FL (7.4-10.4); MONOCYTES # (AUTO) 0.5 X10'3 (0-0.9); MONOCYTES % (AUTO) 6.8 % (2-12); NEUTROPHILS # (AUTO) 5.1 X10'3 (1.8-7.7); NEUTROPHILS % (AUTO) 64.5 % (42-75); PLATELET COUNT 173 X10'3 (140-440); RED BLOOD COUNT 4.45 X10'6 (4.20-5.60); WHITE BLOOD COUNT 7.9 X10'3 (4.5-11.0)
[2019-01-06] MEDS: sertraline 50mg tablet PO SCH (08:24)
[2019-01-06] MEDS: oxybutynin 5mg tablet PO SCH ×2 (08:24→19:14)
[2019-01-06] MEDS: nicotine 21mg patch - 24 hr TD SCH (08:24)
[2019-01-06] MEDS: gabapentin 300mg capsule PO SCH ×2 (08:24→19:14)
[2019-01-06] MEDS: levoTHYROXINE 112mcg tablet PO SCH (08:24)
[2019-01-06] MEDS: magnesium Cl slow-release 64mg tablet PO PRN ×2 (08:26→17:09)
[2019-01-06] MEDS: docusate sod 100mg capsule PO SCH ×2 (08:26→19:14)
[2019-01-06] MEDS: ondansetron/PF 4mg/2ml inj IV PRN ×3 (08:26→19:29)
[2019-01-06] MEDS: ringers solution, lacted 1,000 ML IV SCH ×2 (10:23→18:50)
[2019-01-06 11:00] VITALS: BP 117/67
[2019-01-06] MEDS: famotidine/PF 10 mg/ml inj IV PRN (15:09)
[2019-01-06] MEDS: diphenhydrAMINE 25mg capsule PO PRN (17:37)
[2019-01-06 18:00] VITALS: BP 100/52
--- NOTE | 2019-01-06 18:10 | NUR ---
Problems reprioritized. Patient report given, questions answered & plan of care reviewed with BRENNA Weiss.
--- NOTE | 2019-01-06 18:23 | NUR ---
Report received from BRENNA Orosco
[2019-01-06] MEDS: atorvastatin 20mg tablet PO SCH (21:56)
[2019-01-06] MEDS: CLOZAPINE 100 MG TAB.RAPDIS PO SCH (21:57)
[2019-01-07] VITALS: BP 103/56
[2019-01-07] MEDS: HYDROmorphone/NS 1 mg/ml CADD 50 ML IV SCH ×6 (01:00→11:00)
[2019-01-07] MEDS: ringers solution, lacted 1,000 ML IV SCH ×3 (04:50→15:32)
[2019-01-07 05:33] LABS: BASOPHILS % (AUTO) 0.2 % (0-1); EOSINOPHILS # (AUTO) 0.5 X10'3 (0-0.9); EOSINOPHILS % (AUTO) 8.1 % (0-6); LYMPHOCYTES # (AUTO) 1.9 X10'3 (1.1-4.8); LYMPHOCYTES % (AUTO) 28.7 % (21-51); MEAN CORPUSCULAR HEMOGLOBIN 30.1 PG (27.0-31.0); MEAN CORPUSCULAR HGB CONC 34.2 g/dL (33.0-36.5); MEAN CORPUSCULAR VOLUME 87.8 FL (78-98); MEAN PLATELET VOLUME 8.3 FL (7.4-10.4); MONOCYTES # (AUTO) 0.5 X10'3 (0-0.9); MONOCYTES % (AUTO) 7.4 % (2-12); NEUTROPHILS # (AUTO) 3.7 X10'3 (1.8-7.7); NEUTROPHILS % (AUTO) 55.6 % (42-75); PLATELET COUNT 163 X10'3 (140-440); RED BLOOD COUNT 4.33 X10'6 (4.20-5.60); RED CELL DISTRIBUTION WIDTH 13.8 % (11.5-14.5); WHITE BLOOD COUNT 6.6 X10'3 (4.5-11.0)
[2019-01-07 05:55] LABS: ALBUMIN 2.8 G/DL (3.4-5.0); ANION GAP 10 (8-16); BLOOD UREA NITROGEN 10 MG/DL (7-18); BUN/CREATININE RATIO 13.3 (6.6-38.0); CALCIUM 8.3 MG/DL (8.5-10.1); CHLORIDE 103 MMOL/L (99-107); CREATININE 0.75 MG/DL (0.40-0.90); GLUCOSE 63 MG/DL (70-104); MAGNESIUM 1.7 MG/DL (1.5-2.4); POTASSIUM 3.8 MMOL/L (3.5-5.1); SODIUM 140 MMOL/L (135-145); TOTAL CARBON DIOXIDE 27.2 MMOL/L (24-32); eGFR 81 ML/MIN
--- NOTE | 2019-01-07 06:10 | NUR ---
Patient in room [facility]. I have received report from BRENNA Weiss and had the opportunity to ask questions and assume patient care.
--- NOTE | 2019-01-07 06:28 | NUR ---
report given to Leslie Orosco
[2019-01-07 06:30] VITALS: BP 123/50
[2019-01-07] MEDS: levoTHYROXINE 112mcg tablet PO SCH (08:46)
[2019-01-07] MEDS: nicotine 21mg patch - 24 hr TD SCH (08:47)
[2019-01-07] MEDS: oxybutynin 5mg tablet PO SCH ×2 (08:47→20:13)
[2019-01-07] MEDS: gabapentin 300mg capsule PO SCH ×2 (08:47→20:13)
[2019-01-07] MEDS: carbidopa/levodopa 50/200mg CR tablet PO SCH ×2 (08:47→20:00)
[2019-01-07] MEDS: sertraline 50mg tablet PO SCH (08:47)
[2019-01-07] MEDS: docusate sod 100mg capsule PO SCH ×2 (08:47→20:11)
--- NOTE | 2019-01-07 09:20 | NUR ---
Pt arrived to room [facility] from ED Addendum: 01/07/19 at 1001 by Ana Luisa Shea RN kailyn Gibson pt
[2019-01-07] MEDS: diphenhydrAMINE 25mg capsule PO PRN (09:26)
[2019-01-07] MEDS: famotidine/PF 10 mg/ml inj IV PRN (09:26)
[2019-01-07 09:29] LABS: BASOPHILS % (AUTO) 0.4 % (0-1); EOSINOPHILS # (AUTO) 0.5 X10'3 (0-0.9); EOSINOPHILS % (AUTO) 7.3 % (0-6); HEMATOCRIT 37.5 % (35.0-45.0); HEMOGLOBIN 12.9 g/dl (12.0-16.0); LYMPHOCYTES # (AUTO) 1.4 X10'3 (1.1-4.8); LYMPHOCYTES % (AUTO) 19.4 % (21-51); MEAN CORPUSCULAR HEMOGLOBIN 29.8 PG (27.0-31.0); MEAN CORPUSCULAR HGB CONC 34.3 g/dL (33.0-36.5); MEAN CORPUSCULAR VOLUME 86.8 FL (78-98); MEAN PLATELET VOLUME 8.3 FL (7.4-10.4); MONOCYTES # (AUTO) 0.5 X10'3 (0-0.9); NEUTROPHILS # (AUTO) 4.9 X10'3 (1.8-7.7); NEUTROPHILS % (AUTO) 65.9 % (42-75); PLATELET COUNT 166 X10'3 (140-440); RED BLOOD COUNT 4.32 X10'6 (4.20-5.60); RED CELL DISTRIBUTION WIDTH 13.5 % (11.5-14.5); WHITE BLOOD COUNT 7.4 X10'3 (4.5-11.0)
[2019-01-07 11:00] VITALS: BP 102/56
[2019-01-07] MEDS: HYDROcodone/acetaminophen 10/325mg tab PO PRN ×3 (12:07→20:12)
[2019-01-07] MEDS ORDERED: methylnaltrexone br 12mg/0.6ml inj***SubQ only SQ ONE (15:43)
[2019-01-07 18:30] VITALS: BP 101/50
--- NOTE | 2019-01-07 18:30 | NUR ---
Patient in room [facility]. I have received report from Ana Luisa CEJA and had the opportunity to ask questions and assume patient care.
--- NOTE | 2019-01-07 18:45 | NUR ---
Problems reprioritized. Patient report given, questions answered & plan of care reviewed with BRENNA Hu.
[2019-01-07] MEDS: atorvastatin 20mg tablet PO SCH (20:11)
[2019-01-07] MEDS: CLOZAPINE 100 MG TAB.RAPDIS PO SCH (20:15)
[2019-01-08] VITALS: BP 110/57
[2019-01-08] MEDS: ringers solution, lacted 1,000 ML IV SCH (00:54)
[2019-01-08] MEDS: HYDROcodone/acetaminophen 10/325mg tab PO PRN ×4 (04:27→18:29)
[2019-01-08 05:21] LABS: ALBUMIN 2.5 G/DL (3.4-5.0); ANION GAP 6 (8-16); BLOOD UREA NITROGEN 12 MG/DL (7-18); BUN/CREATININE RATIO 18.5 (6.6-38.0); CALCIUM 8.4 MG/DL (8.5-10.1); CHLORIDE 108 MMOL/L (99-107); CREATININE 0.65 MG/DL (0.40-0.90); GLUCOSE 97 MG/DL (70-104); MAGNESIUM 1.7 MG/DL (1.5-2.4); POTASSIUM 3.5 MMOL/L (3.5-5.1); SODIUM 143 MMOL/L (135-145); TOTAL CARBON DIOXIDE 28.6 MMOL/L (24-32); eGFR > 90 ML/MIN
--- NOTE | 2019-01-08 06:15 | NUR ---
Patient in room [facility]. I have received report from BRENNA Hu and had the opportunity to ask questions and assume patient care.
[2019-01-08 06:30] VITALS: BP 130/69
--- NOTE | 2019-01-08 06:32 | NUR ---
Problems reprioritized. Patient report given, questions answered & plan of care reviewed with Ana Luisa CEJA..
[2019-01-08] MEDS: sertraline 50mg tablet PO SCH (09:33)
[2019-01-08] MEDS: levoTHYROXINE 112mcg tablet PO SCH (09:34)
[2019-01-08] MEDS: carbidopa/levodopa 50/200mg CR tablet PO SCH (09:34)
[2019-01-08] MEDS: docusate sod 100mg capsule PO SCH (09:34)
[2019-01-08] MEDS: nicotine 21mg patch - 24 hr TD SCH (09:34)
[2019-01-08] MEDS: gabapentin 300mg capsule PO SCH (09:34)
[2019-01-08] MEDS: oxybutynin 5mg tablet PO SCH (09:34)
[2019-01-08 11:00] VITALS: BP 120/62
--- NOTE | 2019-01-08 14:55 | NUR ---
Initial: Pt admitted due to a non-healing wound which has developed into a hernia. Post op hernia repair with surgical wound to abdomen, pt has diet advancement to regular from clear liquid, PO intake 75-100%, meeting nutrient needs. Last BM 01/04, however pt is receiving colace and relistor. Pt verbalized c/o constipation, requesting prunes with dinner, d/w dietary. Pt may benefit from additional protein to support wound healing and prevent infection. Provided verbal and written protein education handout. Discussed different protein sources and importance of increased protein for wound healing and infection. Discussed with patient preferences for increased protein, provide cottage cheese with fruit for dinner, d/w dietary. Will continue to monitor. Recommendation: 1. Continue regular diet 2. Increase protein intake to support wound healing, provide cottage cheese with fruit, d/w dietary. 3. weight per rx 4. bowel care as needed, send prunes with dinner, d/w dietary Addendum: 01/08/19 at 1455 by Wing Porsha MILLER Amended: Links added. Addendum: 01/08/19 at [address] RD agree with health information internship note
[2019-01-08 18:00] VITALS: BP 140/68
--- NOTE | 2019-01-08 18:20 | NUR ---
Problems reprioritized. Patient report given, questions answered & plan of care reviewed with BRENNA Bustamante.
[2019-01-08] MEDS: diphenhydrAMINE 25mg capsule PO PRN (18:45)
--- NOTE | 2019-01-08 18:53 | NUR ---
Patient discharged home, assisted by floor aid via wheelchair to waiting family member in personal transport. All belongs with pt upon departure. Patient in stable condition and no distress. VS were stable, temp 98.9F, HR 58, RR 16, O2 94% RA, BP 140/68.
[2019-01-09] MEDS ORDERED: methylnaltrexone br 12mg/0.6ml inj***SubQ only SQ SCH (08:00)
== END 2019-01-08 18:50 | disposition home or self-care (01) | DRG 354 ==
LOC: PAS 10:44 → SUR 3N 20:25
PROVIDERS: ADMIT Surgery; ATTEND Surgery
PROC: 0WQF0ZZ Repair Abdominal Wall, Open Approach (ICD-10-PCS; principal; 2019-01-05)
PROC: 0JN80ZZ Release Abdomen Subcutaneous Tissue and Fascia, Open Approach (ICD-10-PCS; 2019-01-05)
DX: K43.2 Incisional hernia without obstruction or gangrene (principal); K56.7 Ileus, unspecified; F17.210 Nicotine dependence, cigarettes, uncomplicated; K66.0 Peritoneal adhesions (postprocedural) (postinfection); F32.9 Major depressive disorder, single episode, unspecified; F41.9 Anxiety disorder, unspecified; G89.29 Other chronic pain; E03.9 Hypothyroidism, unspecified; F90.9 Attention-deficit hyperactivity disorder, unspecified type; F43.10 Post-traumatic stress disorder, unspecified; Z88.2 Allergy status to sulfonamides
CPT/HCPCS: 36415; 80048; 80053; 81001; 82948; 83735; 84443; 85025; 87081; 93005; 94640; 94760; A4338; A4618; A6253; A6449; A7000; G0378; J0690; J1170; J2175; J2212; J2250; J2405; J2704; J2710; J3010; J3490; J7120; Q0163

== ENCOUNTER 2019-01-31 12:16 | Inpatient (IN) | payer MEDICARE, MEDICAID ==
[~2019-01-31] VITALS: Ht 152.4 cm; Wt 67.0 kg
[~2019-01-31 12:16] MED LIST changes: -cefazolin/dext.iso 2gm/50ml 50 ML IV ONE; -famotidine 20mg tablet PO ONE
[2019-01-31 14:43] LABS: BASOPHILS # (AUTO) 0.1 X10'3 (0-0.2); BASOPHILS % (AUTO) 0.4 % (0-1); EOSINOPHILS # (AUTO) 0.4 X10'3 (0-0.9); EOSINOPHILS % (AUTO) 2.8 % (0-6); HEMATOCRIT 31.8 % (35.0-45.0); HEMOGLOBIN 10.9 g/dl (12.0-16.0); LYMPHOCYTES # (AUTO) 2.1 X10'3 (1.1-4.8); LYMPHOCYTES % (AUTO) 16.1 % (21-51); MEAN CORPUSCULAR HEMOGLOBIN 29.3 PG (27.0-31.0); MEAN CORPUSCULAR HGB CONC 34.4 g/dL (33.0-36.5); MEAN CORPUSCULAR VOLUME 85.2 FL (78-98); MEAN PLATELET VOLUME 7.4 FL (7.4-10.4); MONOCYTES # (AUTO) 1.1 X10'3 (0-0.9); MONOCYTES % (AUTO) 8.6 % (2-12); NEUTROPHILS # (AUTO) 9.2 X10'3 (1.8-7.7); NEUTROPHILS % (AUTO) 72.1 % (42-75); PLATELET COUNT 329 X10'3 (140-440); RED BLOOD COUNT 3.73 X10'6 (4.20-5.60); RED CELL DISTRIBUTION WIDTH 13.3 % (11.5-14.5); WHITE BLOOD COUNT 12.8 X10'3 (4.5-11.0)
[2019-01-31 14:53] LABS: PARTIAL THROMBOPLASTIN TIME 35 SECONDS (22-32)
[2019-01-31 14:55] LABS: ALANINE AMINOTRANSFERASE 16 U/L (12-78); ALBUMIN 2.6 G/DL (3.4-5.0); ALBUMIN/GLOBULIN RATIO 0.7 (1.1-1.5); ALKALINE PHOSPHATASE 91 IU/L (46-116); ANION GAP 9 (8-16); ASPARTATE AMINO TRANSFERASE 16 U/L (10-37); BILIRUBIN,TOTAL 0.4 MG/DL (0.1-1.0); BLOOD UREA NITROGEN 18 MG/DL (7-18); BUN/CREATININE RATIO 18.6 (6.6-38.0); CHLORIDE 99 MMOL/L (99-107); CREATININE 0.97 MG/DL (0.40-0.90); GLUCOSE 95 MG/DL (70-104); POTASSIUM 3.5 MMOL/L (3.5-5.1); SODIUM 134 MMOL/L (135-145); TOTAL CARBON DIOXIDE 25.7 MMOL/L (24-32); TOTAL PROTEIN 6.6 G/DL (6.4-8.2); eGFR 60 ML/MIN
[2019-01-31 15:00] LABS: CLARITY,URINE SLIGHTLY CLOUDY (Clear); COLOR,URINE YELLOW (Yellow); GLUCOSE, URINE NEGATIVE (Neg); KETONES,URINE NEGATIVE (Neg); LEUKOCYTE ESTERASE ,URINE NEGATIVE (Neg); NITRITES, URINE NEGATIVE (Neg); OCCULT BLOOD,URINE SMALL (Neg); PROTEIN,URINE NEGATIVE (Neg); UA COLLECTION TYPE CLN CATCH MIDSTREAM; UROBILINOGEN,URINE 0.2 E.U/dL (0.2-1.0)
[2019-01-31 15:07] LABS: SQUAMOUS EPITHELIAL CELL,UR MODERATE /LPF (FEW)
[2019-01-31 15:08] LABS: BACTERIA,URINE FEW /HPF (Neg); WBC,URINE 0-4 /HPF (0-4)
[2019-01-31] MEDS ORDERED: HYDROcodone/acetaminophen 10/325mg tab PO ONE (15:10)
[2019-01-31] MEDS ORDERED: normal saline 1000ML IV soln IV ONE (15:10)
[2019-01-31] MEDS ORDERED: ondansetron 4mg rapidly disintigrating tab PO ONE (15:10)
[2019-01-31] MEDS ORDERED: morphine 4 MG/ML inj SYRINge IV ONE (15:25)
[2019-01-31] MEDS ORDERED: magnesium hydroxide 30ml (MOM) UD suspension PO PRN (16:40)
[2019-01-31] MEDS ORDERED: ampicillin/sulbac 3gm/NS 100ml 100 ML IV ONE (16:40)
[2019-01-31] MEDS ORDERED: morphine 2 MG/ML inj. syringe IV PRN (16:40)
[2019-01-31] MEDS ORDERED: mag hydrox/Alum hydrox/simeth 30ml oral suspension PO PRN (16:40)
[2019-01-31] MEDS ORDERED: acyclovir 200 MG capsule PO PRN (16:45)
[2019-01-31] MEDS ORDERED: diphenhydrAMINE 25mg capsule PO PRN (16:45)
[2019-01-31] MEDS: ondansetron/PF 4mg/2ml inj IV PRN (18:52)
[2019-01-31] MEDS: morphine 2 MG/ML inj. syringe IV PRN ×2 (18:52→22:35)
[2019-01-31] MEDS: dextrose 5%-1/2 normal saline 1,000 ML IV SCH (18:53)
[2019-01-31] MEDS: vancomycin/NS 1 GM ADD-VANTAGE 250 ML IV SCH (19:18)
[2019-01-31] MEDS ORDERED: nicotine 21mg patch - 24 hr TD ONE (19:35)
[2019-01-31] MEDS ORDERED: ampicillin/sulbac 3gm/NS 100ml 100 ML IV SCH (20:00)
[2019-01-31] MEDS: CLOZAPINE 100 MG TAB.RAPDIS PO SCH (20:33)
[2019-01-31] MEDS: oxybutynin 5mg tablet PO SCH (20:34)
[2019-01-31] MEDS: atorvastatin 20mg tablet PO SCH (20:34)
[2019-01-31] MEDS: gabapentin 300mg capsule PO SCH (20:34)
[2019-01-31] MEDS: carbidopa/levodopa 50/200mg CR tablet PO SCH (20:34)
[2019-01-31] MEDS: baclofen 10mg tablet PO SCH ×2 (20:39→21:32)
[2019-01-31 21:30] VITALS: BP 111/41
[2019-01-31] MEDS ORDERED: zolpidem 5mg tablet PO PRN (22:50)
[2019-01-31] MEDS: piperacillin/tazo 4.5gm/100ml 100 ML IV SCH (23:37)
[2019-02-01] VITALS (10 sets, daily range): BP systolic 84–110; BP diastolic 34–74
[2019-02-01] MEDS: dextrose 5%-1/2 normal saline 1,000 ML IV SCH ×3 (02:38→22:38)
[2019-02-01] MEDS: morphine 2 MG/ML inj. syringe IV PRN (03:41)
[2019-02-01 05:09] LABS: BASOPHILS % (AUTO) 0.3 % (0-1); EOSINOPHILS # (AUTO) 0.7 X10'3 (0-0.9); EOSINOPHILS % (AUTO) 8.2 % (0-6); HEMATOCRIT 29.5 % (35.0-45.0); HEMOGLOBIN 10.1 g/dl (12.0-16.0); LYMPHOCYTES # (AUTO) 1.7 X10'3 (1.1-4.8); LYMPHOCYTES % (AUTO) 19.2 % (21-51); MEAN CORPUSCULAR HEMOGLOBIN 29.5 PG (27.0-31.0); MEAN CORPUSCULAR HGB CONC 34.2 g/dL (33.0-36.5); MEAN CORPUSCULAR VOLUME 86.1 FL (78-98); MEAN PLATELET VOLUME 7.2 FL (7.4-10.4); MONOCYTES # (AUTO) 0.6 X10'3 (0-0.9); MONOCYTES % (AUTO) 6.9 % (2-12); NEUTROPHILS # (AUTO) 5.8 X10'3 (1.8-7.7); NEUTROPHILS % (AUTO) 65.4 % (42-75); PLATELET COUNT 325 X10'3 (140-440); RED BLOOD COUNT 3.43 X10'6 (4.20-5.60); RED CELL DISTRIBUTION WIDTH 13.7 % (11.5-14.5); WHITE BLOOD COUNT 8.8 X10'3 (4.5-11.0)
[2019-02-01 05:13] LABS: PARTIAL THROMBOPLASTIN TIME 34 SECONDS (22-32)
[2019-02-01 05:24] LABS: ANION GAP 10 (8-16); BLOOD UREA NITROGEN 15 MG/DL (7-18); BUN/CREATININE RATIO 16.5 (6.6-38.0); CALCIUM 7.8 MG/DL (8.5-10.1); CHLORIDE 108 MMOL/L (99-107); CREATININE 0.91 MG/DL (0.40-0.90); GLUCOSE 105 MG/DL (70-104); POTASSIUM 3.3 MMOL/L (3.5-5.1); SODIUM 144 MMOL/L (135-145); TOTAL CARBON DIOXIDE 25.8 MMOL/L (24-32); eGFR 64 ML/MIN
--- NOTE | 2019-02-01 06:32 | NUR ---
Patient in room [facility]. I have received report from LINDA Green RN and had the opportunity to ask questions and assume patient care.
--- NOTE | 2019-02-01 06:41 | NUR ---
Problems reprioritized. Patient report given, questions answered & plan of care reviewed with BRENNA Calderon.
--- NOTE | 2019-02-01 06:44 | NUR ---
Patient in room [facility]. I have received report from BRENNA Crook and had the opportunity to ask questions and assume patient care.
--- NOTE | 2019-02-01 06:55 | NUR ---
ROUNDED ON PT TO INTRODUCE MYSELF, SHE WAS ON THE PHONE AND DID NOT WANT TO HANG UP. I WILL ROUND ON HER AGAIN SOON.
--- NOTE | 2019-02-01 07:52 | NUR ---
SENT MESSAGE TO PHARMACY ASKING FOR CINEMET. IT IS CURRENTLY NOT AVAILABLE IN THE [facility] OR PT SPECIFIC BOX
[2019-02-01] MEDS: vancomycin/NS 1 GM ADD-VANTAGE 250 ML IV SCH ×2 (07:54→21:10)
[2019-02-01] MEDS: piperacillin/tazo 4.5gm/100ml 100 ML IV SCH ×2 (07:54→16:46)
[2019-02-01] MEDS: buPROPion SR 150mg tablet PO SCH (07:55)
[2019-02-01] MEDS: levoTHYROXINE 112mcg tablet PO SCH (07:56)
[2019-02-01] MEDS: sertraline 50mg tablet PO SCH (07:56)
[2019-02-01] MEDS: baclofen 10mg tablet PO SCH ×3 (07:56→21:09)
[2019-02-01] MEDS: gabapentin 300mg capsule PO SCH ×2 (07:56→21:09)
[2019-02-01] MEDS: oxybutynin 5mg tablet PO SCH ×2 (07:56→21:08)
[2019-02-01] MEDS: AMPHET PO SCH (08:00)
[2019-02-01] MEDS: DICLOFENAC SODIUM 50 MG PO SCH (08:00)
[2019-02-01] MEDS: AMPHET ASP PO SCH (08:00)
[2019-02-01] MEDS: D AMPHET PO SCH (08:00)
[2019-02-01] MEDS: ORLISTAT PO SCH (08:00)
[2019-02-01] MEDS: carbidopa/levodopa 50/200mg CR tablet PO SCH ×2 (08:00→21:09)
[2019-02-01] MEDS ORDERED: potassium Cl 20 mEq SR tablet PO PRN ×2 (08:40)
[2019-02-01] MEDS ORDERED: magnesium Cl slow-release 64mg tablet PO PRN (08:40)
[2019-02-01 08:52] LABS: MAGNESIUM 1.8 MG/DL (1.5-2.4)
[2019-02-01] MEDS ORDERED: HYDROmorphone inj. 0.5 MG/0.5 ML DISP.SYRIN IV ONE (08:55)
--- NOTE | 2019-02-01 09:27 | NUR ---
NOTIFIED OR CHARGE THAT PT HAS A LOW K+ OF 3.3 WILL CORRECT WITH IV k+ SOON HER VANCO IS FINISHED.
[2019-02-01] MEDS ORDERED: FLU VACC QS2019-20 36MOS UP/PF 60 MCG/0.5 ML SYRINGE IMVAC ONE (10:00)
--- NOTE | 2019-02-01 10:00 | NUR ---
FLU VACCINE IS NOT AVAILABLE FOR PT. CHECKED BOTH REFRIGERATORS. WILL MESSAGE PHARMACY
[2019-02-01] MEDS: potassium CL 10mEq/100ml bag 100 ML IV PRN ×4 (10:32→22:28)
--- NOTE | 2019-02-01 11:58 | NUR ---
Problems reprioritized. Patient report given, to Yumiko RN questions answered.
[2019-02-01] MEDS: HYDROmorphone inj. 0.5 MG/0.5 ML DISP.SYRIN IV PRN ×3 (13:12→22:31)
--- NOTE | 2019-02-01 17:56 | NUR ---
PT WAS NPO ALL DAY FOR SURG. DR VILLAFUERTE ROUNDED AND DICIDED NOT TO DO THE SURGERY. ORDERED HER DINNER
--- NOTE | 2019-02-01 18:43 | NUR ---
Problems reprioritized. Patient report given, questions answered & plan of care reviewed with MIGDALIA CEJA.
--- NOTE | 2019-02-01 18:47 | NUR ---
Patient in room [facility] 350. I have received report from BRENNA Ag and had the opportunity to ask questions and assume patient care.
[2019-02-01] MEDS: HYDROcodone/acetaminophen 10/325mg tab PO PRN (21:08)
[2019-02-01] MEDS: lactobacillus rhamnosus 10,000 MMU CELLS/CAPSULE PO SCH (21:08)
[2019-02-01] MEDS: atorvastatin 20mg tablet PO SCH (21:09)
[2019-02-01] MEDS: CLOZAPINE 100 MG TAB.RAPDIS PO SCH (21:09)
[2019-02-01] MEDS: nicotine 21mg patch - 24 hr TD SCH (22:29)
[2019-02-01] MEDS: ondansetron/PF 4mg/2ml inj IV PRN (23:06)
[2019-02-02] VITALS: BP 100/47
[2019-02-02] MEDS: piperacillin/tazo 4.5gm/100ml 100 ML IV SCH ×3 (00:02→17:10)
[2019-02-02 00:15] VITALS: BP 110/74
[2019-02-02] MEDS: K and/or MAG REPLACEMENT MC SCH ×3 (02:59→20:00)
[2019-02-02] MEDS: dextrose 5%-1/2 normal saline 1,000 ML IV SCH ×2 (03:50→17:11)
--- NOTE | 2019-02-02 06:27 | NUR ---
Patient in room [facility]. I have received report from Dianna CEJA and had the opportunity to ask questions and assume patient care.
[2019-02-02] MEDS ORDERED: VANCOMYCIN LEVEL IV ONE (06:30)
--- NOTE | 2019-02-02 06:50 | NUR ---
Problems reprioritized. Patient report given, questions answered & plan of care reviewed with BRENNA Stokes.
[2019-02-02 07:00] VITALS: BP 129/77
[2019-02-02 07:04] LABS: BASOPHILS % (AUTO) 0.4 % (0-1); EOSINOPHILS % (AUTO) 12.2 % (0-6); HEMATOCRIT 31.4 % (35.0-45.0); HEMOGLOBIN 10.9 g/dl (12.0-16.0); LYMPHOCYTES # (AUTO) 1.3 X10'3 (1.1-4.8); LYMPHOCYTES % (AUTO) 15.2 % (21-51); MEAN CORPUSCULAR HEMOGLOBIN 29.7 PG (27.0-31.0); MEAN CORPUSCULAR HGB CONC 34.6 g/dL (33.0-36.5); MEAN CORPUSCULAR VOLUME 85.7 FL (78-98); MEAN PLATELET VOLUME 7.2 FL (7.4-10.4); MONOCYTES # (AUTO) 0.6 X10'3 (0-0.9); MONOCYTES % (AUTO) 7.6 % (2-12); NEUTROPHILS # (AUTO) 5.3 X10'3 (1.8-7.7); NEUTROPHILS % (AUTO) 64.6 % (42-75); PLATELET COUNT 370 X10'3 (140-440); RED BLOOD COUNT 3.66 X10'6 (4.20-5.60); RED CELL DISTRIBUTION WIDTH 13.5 % (11.5-14.5); WHITE BLOOD COUNT 8.2 X10'3 (4.5-11.0)
--- NOTE | 2019-02-02 07:15 | NUR ---
Patient still very sleepy at this time, breathing evenly.
[2019-02-02] MEDS: vancomycin/NS 1 GM ADD-VANTAGE 250 ML IV SCH (07:20)
[2019-02-02 07:24] LABS: ALBUMIN 2.3 G/DL (3.4-5.0); ANION GAP 8 (8-16); BLOOD UREA NITROGEN 10 MG/DL (7-18); BUN/CREATININE RATIO 11.4 (6.6-38.0); CALCIUM 8.3 MG/DL (8.5-10.1); CHLORIDE 108 MMOL/L (99-107); CREATININE 0.88 MG/DL (0.40-0.90); GLUCOSE 135 MG/DL (70-104); POTASSIUM 4.4 MMOL/L (3.5-5.1); SODIUM 142 MMOL/L (135-145); TOTAL CARBON DIOXIDE 26.4 MMOL/L (24-32); VANCOMYCIN,TROUGH 13.9 UG/ML (6.0-14.0); eGFR 67 ML/MIN
[2019-02-02] MEDS: HYDROmorphone inj. 0.5 MG/0.5 ML DISP.SYRIN IV PRN ×3 (07:39→19:41)
[2019-02-02] MEDS: lactobacillus rhamnosus 10,000 MMU CELLS/CAPSULE PO SCH ×2 (07:39→19:40)
[2019-02-02] MEDS: levoTHYROXINE 112mcg tablet PO SCH (07:39)
[2019-02-02] MEDS: sertraline 50mg tablet PO SCH (07:40)
[2019-02-02] MEDS: oxybutynin 5mg tablet PO SCH ×2 (07:40→19:40)
[2019-02-02] MEDS: baclofen 10mg tablet PO SCH ×3 (07:40→22:05)
[2019-02-02] MEDS: gabapentin 300mg capsule PO SCH ×2 (07:40→19:40)
[2019-02-02] MEDS: buPROPion SR 150mg tablet PO SCH (07:40)
[2019-02-02] MEDS: nicotine 21mg patch - 24 hr TD SCH (07:41)
[2019-02-02] MEDS: carbidopa/levodopa 50/200mg CR tablet PO SCH ×2 (07:51→19:40)
[2019-02-02] MEDS: AMPHET PO SCH (08:00)
[2019-02-02] MEDS: AMPHET ASP PO SCH (08:00)
[2019-02-02] MEDS: ORLISTAT PO SCH (08:00)
[2019-02-02] MEDS: D AMPHET PO SCH (08:00)
[2019-02-02] MEDS: DICLOFENAC SODIUM 50 MG PO SCH (08:00)
--- NOTE | 2019-02-02 09:02 | NUR ---
Patient has been asked this am to have her family bring her own meds so we pharmacy can label it and the nurse can administer it
[2019-02-02 11:00] VITALS: BP 110/44
--- NOTE | 2019-02-02 11:47 | NUR ---
WOUND INFECTION EDUCATION PROVIDED BY WOUND CARE 1. Patient instructed to call their primary doctor, or go the ED immediately if any of the following symptoms occur: * Increased pain in wound * Increase in drainage from the wound * Redness in the skin surrounding the wound * Warmth in the skin surrounding the wound * Bleeding from the wound * Temperature of 101 or greater 2. If any of these occur while in the hospital tell a nurse immediately. Addendum: 02/02/19 at 1155 by Mainor Kohler RN Amended: Links added.
[2019-02-02 18:00] VITALS: BP 122/70
--- NOTE | 2019-02-02 19:29 | NUR ---
Problems reprioritized. Patient report given, questions answered & plan of care reviewed with Abhishek CEJA.
[2019-02-02] MEDS: VANCOmycin 1250MG/NS 250ml Bag 250 ML IV SCH (22:04)
[2019-02-02] MEDS: atorvastatin 20mg tablet PO SCH (22:05)
[2019-02-02] MEDS: CLOZAPINE 100 MG TAB.RAPDIS PO SCH (22:05)
[2019-02-02] MEDS: HYDROcodone/acetaminophen 10/325mg tab PO PRN (22:12)
[2019-02-03] VITALS: BP 148/52
[2019-02-03] MEDS: piperacillin/tazo 4.5gm/100ml 100 ML IV SCH ×4 (00:36→23:14)
[2019-02-03] MEDS: dextrose 5%-1/2 normal saline 1,000 ML IV SCH ×2 (04:38→13:21)
[2019-02-03 05:20] LABS: BASOPHILS # (AUTO) 0.1 X10'3 (0-0.2); BASOPHILS % (AUTO) 0.9 % (0-1); EOSINOPHILS # (AUTO) 1.1 X10'3 (0-0.9); EOSINOPHILS % (AUTO) 13.7 % (0-6); HEMATOCRIT 32.4 % (35.0-45.0); HEMOGLOBIN 11.1 g/dl (12.0-16.0); LYMPHOCYTES # (AUTO) 2.1 X10'3 (1.1-4.8); LYMPHOCYTES % (AUTO) 26.6 % (21-51); MEAN CORPUSCULAR HEMOGLOBIN 29.7 PG (27.0-31.0); MEAN CORPUSCULAR HGB CONC 34.3 g/dL (33.0-36.5); MEAN CORPUSCULAR VOLUME 86.6 FL (78-98); MONOCYTES # (AUTO) 0.6 X10'3 (0-0.9); NEUTROPHILS # (AUTO) 4.1 X10'3 (1.8-7.7); NEUTROPHILS % (AUTO) 50.8 % (42-75); PLATELET COUNT 381 X10'3 (140-440); RED BLOOD COUNT 3.75 X10'6 (4.20-5.60); RED CELL DISTRIBUTION WIDTH 13.2 % (11.5-14.5)
[2019-02-03 05:42] LABS: ALBUMIN 2.3 G/DL (3.4-5.0); ANION GAP 9 (8-16); BLOOD UREA NITROGEN 9 MG/DL (7-18); BUN/CREATININE RATIO 10.7 (6.6-38.0); CALCIUM 8.7 MG/DL (8.5-10.1); CHLORIDE 109 MMOL/L (99-107); CREATININE 0.84 MG/DL (0.40-0.90); GLUCOSE 104 MG/DL (70-104); MAGNESIUM 1.9 MG/DL (1.5-2.4); SODIUM 145 MMOL/L (135-145); TOTAL CARBON DIOXIDE 27.2 MMOL/L (24-32); eGFR 71 ML/MIN
--- NOTE | 2019-02-03 06:42 | NUR ---
report given to BRENNA Zuniga
--- NOTE | 2019-02-03 06:49 | NUR ---
Patient in room [facility] 350. I have received report from Abhishek CEJA and had the opportunity to ask questions and assume patient care.
[2019-02-03] MEDS: VANCOmycin 1250MG/NS 250ml Bag 250 ML IV SCH ×2 (07:14→19:31)
[2019-02-03] MEDS: levoTHYROXINE 112mcg tablet PO SCH (07:24)
[2019-02-03] MEDS: lactobacillus rhamnosus 10,000 MMU CELLS/CAPSULE PO SCH ×2 (07:25→19:32)
[2019-02-03] MEDS: sertraline 50mg tablet PO SCH (07:25)
[2019-02-03] MEDS: carbidopa/levodopa 50/200mg CR tablet PO SCH ×2 (07:25→19:32)
[2019-02-03] MEDS: gabapentin 300mg capsule PO SCH ×2 (07:25→19:32)
[2019-02-03] MEDS: nicotine 21mg patch - 24 hr TD SCH (07:25)
[2019-02-03] MEDS: baclofen 10mg tablet PO SCH ×3 (07:25→20:58)
[2019-02-03] MEDS: oxybutynin 5mg tablet PO SCH ×2 (07:26→19:32)
[2019-02-03] MEDS: buPROPion SR 150mg tablet PO SCH (07:26)
[2019-02-03] MEDS: AMPHET PO SCH (08:00)
[2019-02-03] MEDS: K and/or MAG REPLACEMENT MC SCH ×2 (08:00→19:32)
[2019-02-03] MEDS: ORLISTAT PO SCH (08:00)
[2019-02-03] MEDS: AMPHET ASP PO SCH (08:00)
[2019-02-03] MEDS: D AMPHET PO SCH (08:00)
[2019-02-03] MEDS: DICLOFENAC SODIUM 50 MG PO SCH (08:00)
[2019-02-03 09:00] VITALS: BP 135/71
[2019-02-03] MEDS: HYDROcodone/acetaminophen 10/325mg tab PO PRN ×2 (13:13→20:59)
[2019-02-03 14:04] VITALS: BP 120/62
[2019-02-03] MEDS: HYDROmorphone inj. 0.5 MG/0.5 ML DISP.SYRIN IV PRN ×2 (17:41→23:15)
[2019-02-03 18:00] VITALS: BP 110/58
--- NOTE | 2019-02-03 18:29 | NUR ---
Problems reprioritized. Patient report given, questions answered & plan of care reviewed with Abhishek CEJA.
[2019-02-03] MEDS: atorvastatin 20mg tablet PO SCH (20:58)
[2019-02-03] MEDS: CLOZAPINE 100 MG TAB.RAPDIS PO SCH (20:58)
[2019-02-04] VITALS: BP 112/60
[2019-02-04] MEDS: dextrose 5%-1/2 normal saline 1,000 ML IV SCH ×3 (01:13→17:50)
--- NOTE | 2019-02-04 06:17 | NUR ---
report given to BRENNA Armendariz
[2019-02-04] MEDS ORDERED: VANCOMYCIN LEVEL IV ONE (06:30)
--- NOTE | 2019-02-04 06:41 | NUR ---
Patient in room [facility] 350. I have received report from Abhishek CEJA and had the opportunity to ask questions and assume patient care.
[2019-02-04 07:11] LABS: BASOPHILS % (AUTO) 0.5 % (0-1); EOSINOPHILS # (AUTO) 0.9 X10'3 (0-0.9); EOSINOPHILS % (AUTO) 10.4 % (0-6); HEMATOCRIT 35.2 % (35.0-45.0); LYMPHOCYTES # (AUTO) 2.2 X10'3 (1.1-4.8); LYMPHOCYTES % (AUTO) 26.1 % (21-51); MEAN CORPUSCULAR HEMOGLOBIN 29.1 PG (27.0-31.0); MEAN CORPUSCULAR HGB CONC 34.1 g/dL (33.0-36.5); MEAN CORPUSCULAR VOLUME 85.5 FL (78-98); MEAN PLATELET VOLUME 6.7 FL (7.4-10.4); MONOCYTES # (AUTO) 0.6 X10'3 (0-0.9); MONOCYTES % (AUTO) 6.5 % (2-12); NEUTROPHILS # (AUTO) 4.8 X10'3 (1.8-7.7); NEUTROPHILS % (AUTO) 56.5 % (42-75); PLATELET COUNT 416 X10'3 (140-440); RED BLOOD COUNT 4.12 X10'6 (4.20-5.60); RED CELL DISTRIBUTION WIDTH 13.4 % (11.5-14.5); WHITE BLOOD COUNT 8.5 X10'3 (4.5-11.0)
[2019-02-04] MEDS: VANCOmycin 1250MG/NS 250ml Bag 250 ML IV SCH (07:12)
[2019-02-04] MEDS: lactobacillus rhamnosus 10,000 MMU CELLS/CAPSULE PO SCH ×2 (07:16→20:15)
[2019-02-04] MEDS: oxybutynin 5mg tablet PO SCH ×2 (07:16→20:15)
[2019-02-04] MEDS: baclofen 10mg tablet PO SCH ×3 (07:16→20:15)
[2019-02-04] MEDS: carbidopa/levodopa 50/200mg CR tablet PO SCH ×2 (07:16→20:16)
[2019-02-04] MEDS: gabapentin 300mg capsule PO SCH ×2 (07:16→20:12)
[2019-02-04] MEDS: levoTHYROXINE 112mcg tablet PO SCH (07:16)
[2019-02-04] MEDS: buPROPion SR 150mg tablet PO SCH (07:17)
[2019-02-04] MEDS: sertraline 50mg tablet PO SCH (07:17)
[2019-02-04] MEDS: nicotine 21mg patch - 24 hr TD SCH (07:18)
[2019-02-04 07:26] LABS: ALBUMIN 2.5 G/DL (3.4-5.0); ANION GAP 6 (8-16); BLOOD UREA NITROGEN 10 MG/DL (7-18); BUN/CREATININE RATIO 11.5 (6.6-38.0); CALCIUM 8.8 MG/DL (8.5-10.1); CHLORIDE 109 MMOL/L (99-107); CREATININE 0.87 MG/DL (0.40-0.90); GLUCOSE 118 MG/DL (70-104); SODIUM 143 MMOL/L (135-145); TOTAL CARBON DIOXIDE 27.7 MMOL/L (24-32); eGFR 68 ML/MIN
[2019-02-04 07:29] LABS: VANCOMYCIN,TROUGH 24.3 UG/ML (6.0-14.0)
[2019-02-04] MEDS: K and/or MAG REPLACEMENT MC SCH ×2 (08:00→20:24)
[2019-02-04] MEDS: AMPHET ASP PO SCH (08:00)
[2019-02-04] MEDS: AMPHET PO SCH (08:00)
[2019-02-04] MEDS: D AMPHET PO SCH (08:00)
[2019-02-04] MEDS: DICLOFENAC SODIUM 50 MG PO SCH (08:00)
[2019-02-04] MEDS: ORLISTAT PO SCH (08:00)
[2019-02-04] MEDS: piperacillin/tazo 4.5gm/100ml 100 ML IV SCH ×2 (09:10→15:58)
[2019-02-04 10:54] VITALS: BP 120/65
[2019-02-04] MEDS: HYDROcodone/acetaminophen 10/325mg tab PO PRN ×2 (11:42→17:59)
[2019-02-04 12:30] VITALS: BP 110/60
[2019-02-04] MEDS ORDERED: HYDROmorphone 1 mg/ml syringe ONE ×2 (14:08→20:07)
[2019-02-04] MEDS: HYDROmorphone inj. 0.5 MG/0.5 ML DISP.SYRIN IV PRN ×2 (14:19→20:11)
[2019-02-04] MEDS: ondansetron/PF 4mg/2ml inj IV PRN ×2 (15:39→21:11)
--- NOTE | 2019-02-04 18:38 | NUR ---
Patient in room [facility] 350. I have received report from DURAN CEJA and had the opportunity to ask questions and assume patient care. Addendum: 02/04/19 at 1839 by Quin Bender RN Amended: Links added.
--- NOTE | 2019-02-04 18:44 | NUR ---
Problems reprioritized. Patient report given, questions answered & plan of care reviewed with siddharth CEJA.
[2019-02-04 19:14] VITALS: BP 106/62
--- NOTE | 2019-02-04 20:10 | NUR ---
PT MEDICATED FOR PAin with iv diladid and took hs meds as well.
[2019-02-04] MEDS: atorvastatin 20mg tablet PO SCH (20:12)
[2019-02-04] MEDS: CLOZAPINE 100 MG TAB.RAPDIS PO SCH (20:13)
[2019-02-04] MEDS: vancomycin/NS 1 GM ADD-VANTAGE 250 ML IV SCH (20:16)
--- NOTE | 2019-02-04 21:00 | NUR ---
pt c/o nausea and medicated with zofran for this. pt given hs bas and also complete bed and lien change done then up ambulating in the [place] a lap after this.
--- NOTE | 2019-02-04 23:00 | NUR ---
ressting without changes at this time.
[2019-02-05] VITALS: BP 117/51
--- NOTE | 2019-02-05 01:00 | NUR ---
resting without changes
--- NOTE | 2019-02-05 03:00 | NUR ---
resting eyes closed without changes.
--- NOTE | 2019-02-05 05:00 | NUR ---
resting without changes.
[2019-02-05 05:14] LABS: BASOPHILS # (AUTO) 0.1 X10'3 (0-0.2); BASOPHILS % (AUTO) 0.6 % (0-1); EOSINOPHILS # (AUTO) 0.9 X10'3 (0-0.9); EOSINOPHILS % (AUTO) 9.1 % (0-6); HEMATOCRIT 33.6 % (35.0-45.0); HEMOGLOBIN 11.4 g/dl (12.0-16.0); LYMPHOCYTES # (AUTO) 2.3 X10'3 (1.1-4.8); LYMPHOCYTES % (AUTO) 22.4 % (21-51); MEAN CORPUSCULAR HEMOGLOBIN 29.6 PG (27.0-31.0); MEAN CORPUSCULAR VOLUME 87.1 FL (78-98); MEAN PLATELET VOLUME 6.7 FL (7.4-10.4); MONOCYTES # (AUTO) 0.7 X10'3 (0-0.9); MONOCYTES % (AUTO) 7.1 % (2-12); NEUTROPHILS # (AUTO) 6.3 X10'3 (1.8-7.7); NEUTROPHILS % (AUTO) 60.8 % (42-75); PLATELET COUNT 396 X10'3 (140-440); RED BLOOD COUNT 3.86 X10'6 (4.20-5.60); RED CELL DISTRIBUTION WIDTH 13.4 % (11.5-14.5); WHITE BLOOD COUNT 10.4 X10'3 (4.5-11.0)
[2019-02-05 05:25] LABS: ALBUMIN 2.5 G/DL (3.4-5.0); ANION GAP 5 (8-16); BLOOD UREA NITROGEN 10 MG/DL (7-18); CALCIUM 8.7 MG/DL (8.5-10.1); CHLORIDE 107 MMOL/L (99-107); CREATININE 0.91 MG/DL (0.40-0.90); GLUCOSE 107 MG/DL (70-104); MAGNESIUM 1.9 MG/DL (1.5-2.4); POTASSIUM 3.8 MMOL/L (3.5-5.1); SODIUM 142 MMOL/L (135-145); TOTAL CARBON DIOXIDE 30.3 MMOL/L (24-32); eGFR 64 ML/MIN
--- NOTE | 2019-02-05 06:00 | NUR ---
Problems reprioritized. Patient report given, questions answered & plan of care reviewed with DURAN CEJA. Addendum: 02/05/19 at 0601 by Quin Bender RN Amended: Links added.
--- NOTE | 2019-02-05 06:21 | NUR ---
Patient in room [facility] 350. I have received report from Quin CEJA and had the opportunity to ask questions and assume patient care.
[2019-02-05] MEDS: dextrose 5%-1/2 normal saline 1,000 ML IV SCH ×2 (06:38→13:40)
[2019-02-05] MEDS ORDERED: HYDROmorphone 1 mg/ml syringe ONE (06:58)
[2019-02-05] MEDS: vancomycin/NS 1 GM ADD-VANTAGE 250 ML IV SCH (07:06)
[2019-02-05] MEDS: HYDROmorphone inj. 0.5 MG/0.5 ML DISP.SYRIN IV PRN (07:07)
[2019-02-05] MEDS: buPROPion SR 150mg tablet PO SCH (07:13)
[2019-02-05] MEDS: carbidopa/levodopa 50/200mg CR tablet PO SCH ×2 (07:14→19:10)
[2019-02-05] MEDS: baclofen 10mg tablet PO SCH ×3 (07:14→19:10)
[2019-02-05] MEDS: levoTHYROXINE 112mcg tablet PO SCH (07:14)
[2019-02-05] MEDS: oxybutynin 5mg tablet PO SCH ×2 (07:14→19:09)
[2019-02-05] MEDS: lactobacillus rhamnosus 10,000 MMU CELLS/CAPSULE PO SCH ×2 (07:14→19:09)
[2019-02-05] MEDS: gabapentin 300mg capsule PO SCH ×2 (07:14→19:10)
[2019-02-05] MEDS: sertraline 50mg tablet PO SCH (07:14)
[2019-02-05] MEDS: nicotine 21mg patch - 24 hr TD SCH (07:15)
[2019-02-05] MEDS: K and/or MAG REPLACEMENT MC SCH ×2 (08:00→19:13)
[2019-02-05] MEDS: piperacillin/tazo 4.5gm/100ml 100 ML IV SCH ×3 (08:35→08:59)
--- NOTE | 2019-02-05 08:56 | NUR ---
Unable to hang Zosyn do to no tubing on the unit. Will call supplies.
[2019-02-05 09:00] VITALS: BP 134/56
[2019-02-05] MEDS: HYDROcodone/acetaminophen 10/325mg tab PO PRN (11:34)
[2019-02-05 11:40] VITALS: BP 110/44
[2019-02-05] MEDS: HYDROmorphone 1 mg/ml syringe IV PRN ×2 (14:53→19:09)
[2019-02-05] MEDS: ondansetron/PF 4mg/2ml inj IV PRN (14:56)
--- NOTE | 2019-02-05 15:36 | NUR ---
Initial: Pt admit w/ prior abdominal hernia repair wound re-opening and infection. Not going to OR and to have WOC w/ ID recs at this time per MD note. Pt PO 75-100% avg regular diet meeting healing needs. [facility] 02/03. Will continue to monitor for additional protein needs. Rec: 1. continue regular diet 2. monitor for additional protein needs IF PO declines 3. bowel care as needed 4. wt per rx Addendum: 02/05/19 at [address] Amended: Links added.
[2019-02-05] MEDS: oxyCODONE/APAP 10/325mg tablet PO PRN ×2 (16:09→22:21)
[2019-02-05] MEDS: amox tr/potassium clavulanate 875/125mg TAB PO SCH (17:28)
[2019-02-05] MEDS: Dakins solution (1/4 strength) 473ml solution TP SCH (17:53)
--- NOTE | 2019-02-05 18:30 | NUR ---
Patient in room [facility]. I have received report from DURAN CEJA and had the opportunity to ask questions and assume patient care. Addendum: 02/05/19 at 1831 by Quin Bender RN Amended: Links added.
--- NOTE | 2019-02-05 18:33 | NUR ---
Problems reprioritized. Patient report given, questions answered & plan of care reviewed with Quin CEJA.
[2019-02-05] MEDS: atorvastatin 20mg tablet PO SCH (19:11)
[2019-02-05] MEDS: CLOZAPINE 100 MG TAB.RAPDIS PO SCH (19:11)
--- NOTE | 2019-02-05 19:15 | NUR ---
medicated with iv diladid for c/o pain. wanted to take all of her hs meds at this time.
[2019-02-05 19:30] VITALS: BP 133/67
--- NOTE | 2019-02-05 20:50 | NUR ---
resting without s&s of distress at this time.
--- NOTE | 2019-02-05 21:53 | NUR ---
restingh eyes closed without s&s of distress at this time.
--- NOTE | 2019-02-05 22:22 | NUR ---
medicated for pain with percocet po. 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
[2019-02-06] VITALS: BP 132/61
--- NOTE | 2019-02-06 00:15 | NUR ---
resting eyes closed without changes,
--- NOTE | 2019-02-06 02:14 | NUR ---
pt appears comfortable resting without s&s of distress.
--- NOTE | 2019-02-06 04:10 | NUR ---
resting eyes closed without s&s of distress.
--- NOTE | 2019-02-06 04:40 | NUR ---
c/o pain and medicated with percocet for this than called again asking for zofran.
[2019-02-06] MEDS: oxyCODONE/APAP 10/325mg tablet PO PRN ×4 (04:44→20:45)
[2019-02-06] MEDS: ondansetron/PF 4mg/2ml inj IV PRN (04:54)
--- NOTE | 2019-02-06 04:56 | NUR ---
medicated with zofran for c/o nausea.
--- NOTE | 2019-02-06 05:26 | NUR ---
resting without changes
--- NOTE | 2019-02-06 06:08 | NUR ---
Problems reprioritized. Patient report given, questions answered & plan of care reviewed with MILVIA CEJA. Addendum: 02/06/19 at 0609 by Quin Bender RN Amended: Links added.
--- NOTE | 2019-02-06 06:15 | NUR ---
Patient in room [facility]. I have received report from BRENNA JO and had the opportunity to ask questions and assume patient care.
[2019-02-06] MEDS ORDERED: VANCOMYCIN LEVEL IV ONE (06:30)
[2019-02-06 07:00] VITALS: BP 109/50
[2019-02-06] MEDS: K and/or MAG REPLACEMENT MC SCH ×2 (08:00→20:00)
[2019-02-06] MEDS ORDERED: AMOX-580 PO (09:46)
[2019-02-06] MEDS ORDERED: OXYC-511 PO (09:46)
[2019-02-06] MEDS ORDERED: ONDA4TAB12 PO (09:46)
[2019-02-06] MEDS ORDERED: LACT1CAP26 PO (09:46)
[2019-02-06] MEDS: carbidopa/levodopa 50/200mg CR tablet PO SCH ×2 (10:23→20:38)
[2019-02-06] MEDS: nicotine 21mg patch - 24 hr TD SCH (10:23)
[2019-02-06] MEDS: baclofen 10mg tablet PO SCH ×3 (10:23→20:40)
[2019-02-06] MEDS: amox tr/potassium clavulanate 875/125mg TAB PO SCH ×2 (10:23→17:57)
[2019-02-06] MEDS: oxybutynin 5mg tablet PO SCH ×2 (10:24→20:39)
[2019-02-06] MEDS: lactobacillus rhamnosus 10,000 MMU CELLS/CAPSULE PO SCH ×2 (10:24→20:38)
[2019-02-06] MEDS: gabapentin 300mg capsule PO SCH ×2 (10:24→20:40)
[2019-02-06] MEDS: sertraline 50mg tablet PO SCH (10:24)
[2019-02-06] MEDS: buPROPion SR 150mg tablet PO SCH (10:24)
[2019-02-06] MEDS: Dakins solution (1/4 strength) 473ml solution TP SCH ×2 (10:25→20:06)
[2019-02-06] MEDS: ondansetron 4mg rapidly disintigrating tab PO PRN ×3 (10:56→22:34)
[2019-02-06] MEDS: levoTHYROXINE 112mcg tablet PO SCH (10:56)
[2019-02-06 11:00] VITALS: BP 100/47
--- NOTE | 2019-02-06 18:15 | NUR ---
Problems reprioritized. Patient report given, questions answered & plan of care reviewed with BRENNA FLOYD.
--- NOTE | 2019-02-06 18:15 | NUR ---
Patient in room [facility] 350. I have received report from Joan CEJA and had the opportunity to ask questions and assume patient care.
--- NOTE | 2019-02-06 19:25 | NUR ---
Patient in room [facility]. I have received report from BRENNA Hu and had the opportunity to ask questions and assume patient care.
--- NOTE | 2019-02-06 19:31 | NUR ---
Problems reprioritized. Patient report given, questions answered & plan of care reviewed with Warren CEJA.
[2019-02-06 20:00] VITALS: BP 96/43
[2019-02-06] MEDS: atorvastatin 20mg tablet PO SCH (20:39)
[2019-02-06] MEDS: CLOZAPINE 100 MG TAB.RAPDIS PO SCH (20:40)
[2019-02-07] VITALS (18 sets, daily range): BP systolic 100–125; BP diastolic 47–71
[2019-02-07 05:15] LABS: BASOPHILS # (AUTO) 0.1 X10'3 (0-0.2); BASOPHILS % (AUTO) 0.7 % (0-1); EOSINOPHILS # (AUTO) 0.7 X10'3 (0-0.9); EOSINOPHILS % (AUTO) 6.6 % (0-6); HEMOGLOBIN 11.4 g/dl (12.0-16.0); LYMPHOCYTES # (AUTO) 2.6 X10'3 (1.1-4.8); LYMPHOCYTES % (AUTO) 24.3 % (21-51); MEAN CORPUSCULAR HEMOGLOBIN 29.7 PG (27.0-31.0); MEAN CORPUSCULAR HGB CONC 34.7 g/dL (33.0-36.5); MEAN CORPUSCULAR VOLUME 85.8 FL (78-98); MEAN PLATELET VOLUME 6.7 FL (7.4-10.4); MONOCYTES # (AUTO) 0.7 X10'3 (0-0.9); MONOCYTES % (AUTO) 6.9 % (2-12); NEUTROPHILS # (AUTO) 6.6 X10'3 (1.8-7.7); NEUTROPHILS % (AUTO) 61.5 % (42-75); PLATELET COUNT 363 X10'3 (140-440); RED BLOOD COUNT 3.84 X10'6 (4.20-5.60); RED CELL DISTRIBUTION WIDTH 13.3 % (11.5-14.5); WHITE BLOOD COUNT 10.7 X10'3 (4.5-11.0)
[2019-02-07 05:37] LABS: ALANINE AMINOTRANSFERASE 10 U/L (12-78); ALBUMIN 2.5 G/DL (3.4-5.0); ALBUMIN/GLOBULIN RATIO 0.7 (1.1-1.5); ALKALINE PHOSPHATASE 99 IU/L (46-116); ANION GAP 7 (8-16); ASPARTATE AMINO TRANSFERASE 14 U/L (10-37); BILIRUBIN,TOTAL 0.2 MG/DL (0.1-1.0); BLOOD UREA NITROGEN 14 MG/DL (7-18); BUN/CREATININE RATIO 14.6 (6.6-38.0); CALCIUM 8.6 MG/DL (8.5-10.1); CHLORIDE 105 MMOL/L (99-107); CREATININE 0.96 MG/DL (0.40-0.90); GLUCOSE 91 MG/DL (70-104); POTASSIUM 4.3 MMOL/L (3.5-5.1); SODIUM 141 MMOL/L (135-145); TOTAL CARBON DIOXIDE 29.1 MMOL/L (24-32); TOTAL PROTEIN 6.1 G/DL (6.4-8.2); eGFR 61 ML/MIN
--- NOTE | 2019-02-07 06:24 | NUR ---
Problems reprioritized. Patient report given, questions answered & plan of care reviewed with BRENNA Franco.
--- NOTE | 2019-02-07 06:40 | NUR ---
Patient in room [facility]. I have received report from BRENNA DONALD and had the opportunity to ask questions and assume patient care.
[2019-02-07] MEDS: K and/or MAG REPLACEMENT MC SCH ×2 (08:00→20:00)
[2019-02-07] MEDS: Dakins solution (1/4 strength) 473ml solution TP SCH ×2 (08:00→20:00)
[2019-02-07] MEDS: lactobacillus rhamnosus 10,000 MMU CELLS/CAPSULE PO SCH ×2 (10:34→19:43)
[2019-02-07] MEDS: oxybutynin 5mg tablet PO SCH ×2 (10:34→19:43)
[2019-02-07] MEDS: buPROPion SR 150mg tablet PO SCH (10:35)
[2019-02-07] MEDS: gabapentin 300mg capsule PO SCH ×2 (10:35→19:43)
[2019-02-07] MEDS: sertraline 50mg tablet PO SCH (10:35)
[2019-02-07] MEDS: nicotine 21mg patch - 24 hr TD SCH (10:36)
[2019-02-07] MEDS: levoTHYROXINE 112mcg tablet PO SCH (10:36)
[2019-02-07] MEDS: baclofen 10mg tablet PO SCH ×3 (10:36→20:51)
[2019-02-07] MEDS: carbidopa/levodopa 50/200mg CR tablet PO SCH ×2 (10:36→19:42)
[2019-02-07] MEDS: amox tr/potassium clavulanate 875/125mg TAB PO SCH ×2 (10:38→19:42)
[2019-02-07] MEDS: oxyCODONE/APAP 10/325mg tablet PO PRN (13:19)
[2019-02-07] MEDS ORDERED: ringers solution, lacted 1,000 ML IV SCH (15:24)
[2019-02-07] MEDS ORDERED: proCHLORperazine 10 MG/2 ml inj IV PRN (15:25)
[2019-02-07] MEDS ORDERED: morphine 4 MG/ML inj SYRINge IV PRN ×2 (15:25)
[2019-02-07] MEDS ORDERED: meperidine/PF 25mg/ml syringe IV PRN ×2 (15:25)
[2019-02-07] MEDS ORDERED: ondansetron/PF 4mg/2ml inj IV PRN (15:25)
[2019-02-07] MEDS ORDERED: sevoflurane 250ml liquid IH ONE (15:55)
[2019-02-07] MEDS ORDERED: midazolam 2 mg/2 ml injection ONE (15:59)
[2019-02-07] MEDS ORDERED: propofol inj 20 ML IV ONE (15:59)
[2019-02-07] MEDS ORDERED: fentaNYL/PF 50MCG/1 ML 2ML syringe ONE (15:59)
[2019-02-07] MEDS ORDERED: LIDOcaine 2% (20mg/ml) 5ml vial ONE (15:59)
[2019-02-07] MEDS ORDERED: LIDOcaine 1% (10mg/ml) 2ml vial ONE (16:02)
[2019-02-07] MEDS ORDERED: ceFAZolin 1000mg inj ONE ×3 (16:08→16:36)
--- NOTE | 2019-02-07 16:50 | NUR ---
Received from OR via surgical bed, accompanied by Anesthesiologist Trip and report given by Anesthesiolgist. Pt VS stable with 10L O2 mask on. Pt sleepy and not responding to questions but all VS stable. 20G left hand IVF LR at 100cc/hr. SCDs present, cole catheter present draining yellow urine. Dressing to abdomen CDI island dressing. SCDs present.
[2019-02-07] MEDS: meperidine/PF 25mg/ml syringe IV PRN ×2 (17:23→17:36)
--- NOTE | 2019-02-07 17:50 | NUR ---
Report called to receiving nurse. Transferred via surgical bed Belongings remain in room from prior to surgery. Report was called prior to Jacy CEJA. Special Issues communicated to receiving nurse who is at bedside. BLL, call light within her reach. Post op VS stable. Chart at bedside cell phone returned to patient, abdomen observed by both myself and receiving RN remains CDI.
--- NOTE | 2019-02-07 18:45 | NUR ---
Problems reprioritized. Patient report given, questions answered & plan of care reviewed with BRENNA KISER.
--- NOTE | 2019-02-07 18:46 | NUR ---
Patient in room [facility]. I have received report from BRENNA Franco and had the opportunity to ask questions and assume patient care.
[2019-02-07] MEDS: HYDROmorphone 1 mg/ml syringe IV PRN ×2 (19:42→23:51)
[2019-02-07] MEDS: CLOZAPINE 100 MG TAB.RAPDIS PO SCH (20:51)
[2019-02-07] MEDS: atorvastatin 20mg tablet PO SCH (20:51)
[2019-02-08] VITALS: BP 117/63
--- NOTE | 2019-02-08 06:23 | NUR ---
Problems reprioritized. Patient report given, questions answered & plan of care reviewed with BRENNA Eugene.
--- NOTE | 2019-02-08 06:25 | NUR ---
Patient in room [facility]. I have received report from Ambreen Concepcion RN and had the opportunity to ask questions and assume patient care.
[2019-02-08 07:30] VITALS: BP 111/62
[2019-02-08] MEDS: Dakins solution (1/4 strength) 473ml solution TP SCH (08:00)
[2019-02-08] MEDS: K and/or MAG REPLACEMENT MC SCH ×2 (08:00→20:00)
[2019-02-08] MEDS: oxybutynin 5mg tablet PO SCH ×2 (08:30→20:20)
[2019-02-08] MEDS: baclofen 10mg tablet PO SCH ×3 (08:30→20:20)
[2019-02-08] MEDS: carbidopa/levodopa 50/200mg CR tablet PO SCH ×2 (08:30→20:20)
[2019-02-08] MEDS: lactobacillus rhamnosus 10,000 MMU CELLS/CAPSULE PO SCH ×2 (08:30→20:20)
[2019-02-08] MEDS: sertraline 50mg tablet PO SCH (08:30)
[2019-02-08] MEDS: nicotine 21mg patch - 24 hr TD SCH (08:31)
[2019-02-08] MEDS: buPROPion SR 150mg tablet PO SCH (08:31)
[2019-02-08] MEDS: levoTHYROXINE 112mcg tablet PO SCH (08:31)
[2019-02-08] MEDS: amox tr/potassium clavulanate 875/125mg TAB PO SCH ×2 (08:31→17:24)
[2019-02-08] MEDS: gabapentin 300mg capsule PO SCH ×2 (08:31→20:19)
[2019-02-08] MEDS: HYDROmorphone 1 mg/ml syringe IV PRN (08:46)
[2019-02-08 11:30] VITALS: BP 92/52
[2019-02-08] MEDS: oxyCODONE/APAP 10/325mg tablet PO PRN ×3 (11:33→20:21)
[2019-02-08] MEDS: ondansetron 4mg rapidly disintigrating tab PO PRN (17:38)
[2019-02-08 18:00] VITALS: BP 94/51
--- NOTE | 2019-02-08 18:10 | NUR ---
Patient in room [facility]. I have received report from Geovanny Bowman and had the opportunity to ask questions and assume patient care.
[2019-02-08] MEDS: atorvastatin 20mg tablet PO SCH (20:20)
[2019-02-08] MEDS: CLOZAPINE 100 MG TAB.RAPDIS PO SCH (20:21)
[2019-02-09] MEDS: oxyCODONE/APAP 10/325mg tablet PO PRN ×2 (00:39→09:27)
[2019-02-09 00:44] VITALS: BP 88/52
[2019-02-09 05:43] VITALS: BP 96/63
--- NOTE | 2019-02-09 06:20 | NUR ---
Patient in room [facility]. I have received report from BRENNA Bledsoe and had the opportunity to ask questions and assume patient care.
--- NOTE | 2019-02-09 06:20 | NUR ---
Problems reprioritized. Patient report given, questions answered & plan of care reviewed with BRENNA Bowman.
[2019-02-09 07:25] VITALS: BP 98/66
[2019-02-09] MEDS: K and/or MAG REPLACEMENT MC SCH (08:00)
[2019-02-09] MEDS: oxybutynin 5mg tablet PO SCH (08:18)
[2019-02-09] MEDS: gabapentin 300mg capsule PO SCH (08:18)
[2019-02-09] MEDS: baclofen 10mg tablet PO SCH (08:18)
[2019-02-09] MEDS: lactobacillus rhamnosus 10,000 MMU CELLS/CAPSULE PO SCH (08:18)
[2019-02-09] MEDS: levoTHYROXINE 112mcg tablet PO SCH (08:18)
[2019-02-09] MEDS: buPROPion SR 150mg tablet PO SCH (08:18)
[2019-02-09] MEDS: carbidopa/levodopa 50/200mg CR tablet PO SCH (08:19)
[2019-02-09] MEDS: nicotine 21mg patch - 24 hr TD SCH (08:19)
[2019-02-09] MEDS: sertraline 50mg tablet PO SCH (08:19)
[2019-02-09] MEDS: amox tr/potassium clavulanate 875/125mg TAB PO SCH (08:19)
[2019-02-09] MEDS ORDERED: OXYC-150 PO (09:08)
[2019-02-09 11:30] VITALS: BP 97/52
--- NOTE | 2019-02-09 12:07 | NUR ---
Patient discharged safely with all belongings, with education on wound care/wound dressing changes and with all supply necessary for wound dressings. Patient understands and confirmed she understands how to proceed with dressing changes and packing the wound. Patient left with her prescription for Percocet in hand and with her. Patient understands she is to call Dr. Dominguez to set up a follow up appointment within one week.
== END 2019-02-09 12:00 | disposition home or self-care (01) | DRG 857 ==
LOC: ER 12:17 → ED HOLD 16:38 → SUR 3N 21:25
PROVIDERS: ADMIT Internal Medicine; ATTEND Internal Medicine
PROC: 3E02340 Introduction of Influenza Vaccine into Muscle, Percutaneous Approach (ICD-10-PCS; 2019-02-01)
PROC: 0JB80ZZ Excision of Abdomen Subcutaneous Tissue and Fascia, Open Approach (ICD-10-PCS; principal; 2019-02-07 15:52)
DX: T81.43XA Infection following a procedure, organ and space surgical site, initial encounter (principal); L02.211 Cutaneous abscess of abdominal wall; L03.311 Cellulitis of abdominal wall; D64.9 Anemia, unspecified; E03.9 Hypothyroidism, unspecified; E78.5 Hyperlipidemia, unspecified; F20.9 Schizophrenia, unspecified; F17.210 Nicotine dependence, cigarettes, uncomplicated; F32.9 Major depressive disorder, single episode, unspecified; Y83.8 Other surgical procedures as the cause of abnormal reaction of the patient, or of later complication, without mention of misadventure at the time of the procedure; F90.9 Attention-deficit hyperactivity disorder, unspecified type; G89.29 Other chronic pain; Z79.899 Other long term (current) drug therapy; Z23 Encounter for immunization; Z88.2 Allergy status to sulfonamides; Z88.5 Allergy status to narcotic agent; E87.6 Hypokalemia; Y92.89 Other specified places as the place of occurrence of the external cause
CPT/HCPCS: 36415; 71045; 80048; 80053; 80202; 81001; 82948; 83605; 83735; 84145; 85025; 85610; 85730; 87040; 87070; 87077; 87081; 93005; 96374; 99285; A4618; A6446; A6449; A7000; G0378; J0295; J0690; J1170; J2001; J2175; J2250; J2270; J2405; J2543; J2704; J3010; J3370; J3480; J7120; Q2037

== ENCOUNTER 2019-09-11 18:18 | Emergency (ER) | payer MEDICARE, MEDICAID ==
[~2019-09-11] VITALS: Ht 165.1 cm; Wt 77.3 kg
[~2019-09-11 18:18] MED LIST changes: +AMOX-580 PO; +LACT1CAP26 PO; +ONDA4TAB12 PO; -ORLI120C22 PO; +ORLI120C23 PO; +OXYC-150 PO
[2019-09-11 18:38] VITALS: BP 134/56
[2019-09-11 19:11] LABS: BASOPHILS # (AUTO) 0.1 X10'3 (0-0.2); BASOPHILS % (AUTO) 0.6 % (0-1); EOSINOPHILS # (AUTO) 0.3 X10'3 (0-0.9); EOSINOPHILS % (AUTO) 2.6 % (0-6); HEMATOCRIT 42.6 % (35.0-45.0); HEMOGLOBIN 14.7 g/dl (12.0-16.0); LYMPHOCYTES # (AUTO) 2.3 X10'3 (1.1-4.8); LYMPHOCYTES % (AUTO) 23.3 % (21-51); MEAN CORPUSCULAR HEMOGLOBIN 30.9 PG (27.0-31.0); MEAN CORPUSCULAR HGB CONC 34.6 g/dL (33.0-36.5); MEAN CORPUSCULAR VOLUME 89.2 FL (78-98); MEAN PLATELET VOLUME 7.6 FL (7.4-10.4); MONOCYTES # (AUTO) 0.6 X10'3 (0-0.9); MONOCYTES % (AUTO) 5.7 % (2-12); NEUTROPHILS # (AUTO) 6.6 X10'3 (1.8-7.7); NEUTROPHILS % (AUTO) 67.8 % (42-75); PLATELET COUNT 189 X10'3 (140-440); RED BLOOD COUNT 4.77 X10'6 (4.20-5.60); RED CELL DISTRIBUTION WIDTH 12.3 % (11.5-14.5); WHITE BLOOD COUNT 9.7 X10'3 (4.5-11.0)
--- NOTE | 2019-09-11 19:13 | NUR ---
TO BATHROOM FOR URINE SAMPLE
[2019-09-11 19:22] LABS: CLARITY,URINE SLIGHTLY CLOUDY (Clear); COLOR,URINE YELLOW (Yellow); GLUCOSE, URINE NEGATIVE (Neg); KETONES,URINE TRACE mg/dl (Neg); LEUKOCYTE ESTERASE ,URINE NEGATIVE (Neg); NITRITES, URINE NEGATIVE (Neg); OCCULT BLOOD,URINE SMALL (Neg); PH,URINE 7.5 (4.8-8.0); PROTEIN,URINE NEGATIVE (Neg); UROBILINOGEN,URINE 0.2 E.U/dL (0.2-1.0)
[2019-09-11 19:23] LABS: UA COLLECTION TYPE CLN CATCH MIDSTREAM
[2019-09-11 19:31] LABS: BACTERIA,URINE 2+ /HPF (Neg); RBC,URINE 0-2 /HPF (0-2); SQUAMOUS EPITHELIAL CELL,UR FEW /LPF (FEW); WBC,URINE NONE SEEN /HPF (0-4)
[2019-09-11 19:31] LABS: ALANINE AMINOTRANSFERASE 56 U/L (12-78); ALBUMIN 4.2 G/DL (3.4-5.0); ALBUMIN/GLOBULIN RATIO 1.2 (1.1-1.5); ALKALINE PHOSPHATASE 82 IU/L (46-116); ANION GAP 9 (8-16); ASPARTATE AMINO TRANSFERASE 28 U/L (10-37); BILIRUBIN,TOTAL 0.8 MG/DL (0.1-1.0); BLOOD UREA NITROGEN 23 MG/DL (7-18); BUN/CREATININE RATIO 19.2 (6.6-38.0); CALCIUM 8.9 MG/DL (8.5-10.1); CHLORIDE 99 MMOL/L (99-107); GLUCOSE 100 MG/DL (70-104); LIPASE 101 U/L (73-393); SODIUM 134 MMOL/L (135-145); TOTAL CARBON DIOXIDE 25.7 MMOL/L (24-32); TOTAL PROTEIN 7.8 G/DL (6.4-8.2); eGFR 47 ML/MIN
--- NOTE | 2019-09-11 21:00 | NUR ---
PT TO CT VIA WHEEL CHAIR WITH HOSPITAL RECRUITER
--- NOTE | 2019-09-11 22:10 | NUR ---
PLAN OF CARE UPDATED PT UP FOR REEVALUATION
== END 2019-09-11 22:47 | disposition home or self-care (01) ==
LOC: ER 18:19
DX: K46.9 Unspecified abdominal hernia without obstruction or gangrene (principal); R10.11 Right upper quadrant pain; R11.2 Nausea with vomiting, unspecified; E03.9 Hypothyroidism, unspecified; G89.29 Other chronic pain; Z98.890 Other specified postprocedural states; Z88.2 Allergy status to sulfonamides; Z88.6 Allergy status to analgesic agent; Z79.899 Other long term (current) drug therapy
CPT/HCPCS: 36415; 74176; 80053; 81001; 83690; 85025; 99284

== ENCOUNTER 2020-09-11 10:57 | Outpatient (CLI) | payer MEDICARE, MEDICAID ==
[~2020-09-11 10:57] MED LIST changes: +ACYC-126 PO; -ACYC400T PO; -AMOX-580 PO; +BUPR150T27 PO; -BUPR150T8 PO; +ESTR-4 PO; -LACT1CAP26 PO; +NICO-687 TD; -ONDA4TAB12 PO; -OXYC-150 PO; +POTASSIUM PO
[2020-09-11] MEDS ORDERED: iohexol 300mg/ml 100ml inj. ONE (11:37)
== END 2020-09-11 23:59 | disposition home or self-care (01) ==
LOC: 64 CT 10:57
PROVIDERS: ATTEND Surgery
DX: K44.9 Diaphragmatic hernia without obstruction or gangrene (principal); N20.0 Calculus of kidney; J90 Pleural effusion, not elsewhere classified; M41.85 Other forms of scoliosis, thoracolumbar region; M51.36 Other intervertebral disc degeneration, lumbar region; N28.1 Cyst of kidney, acquired
CPT/HCPCS: 74177; Q9967

== ENCOUNTER 2021-07-02 09:52 | Outpatient (CLI) | payer MEDICARE, MEDICAID ==
[2021-07-02] MEDS ORDERED: IOHEXOL 300 MG/ML 30ML INFUS..BTL IV ONE (10:23)
[2021-07-02] MEDS ORDERED: iohexol 300 MG/1 ML 50ml polymer ONE (10:23)
== END 2021-07-02 23:59 | disposition home or self-care (01) ==
LOC: RAD 09:52
PROVIDERS: ATTEND Family Medicine
DX: N20.0 Calculus of kidney (principal); I70.90 Unspecified atherosclerosis
CPT/HCPCS: 74177; Q9967